=== PATIENT | male | born 1990 | race Caucasian/White ===

== ENCOUNTER 2019-03-16 22:45 | Emergency (ER) | payer MEDICAID, SELFPAY ==
--- NOTE | ~2019-03-16 | XR_ITS ---
XR hand RT min 3V 03/16/2019 23:00 INDICATION: Right hand pain after blunt trauma PROCEDURE: 3 views right hand COMPARISON: No prior studies for comparison. FINDINGS: Fracture, dislocation or subluxation is not identified. The soft tissues appear within norm al limits. No foreign bodies are identified. IMPRESSION: 1: NO ACUTE BONE OR JOINT ABNORMALITY IDENTIFIED. Reviewed, dictated and finalized at location A. MANAGER
[2019-03-16 22:49] VITALS: BP 142/88; PULSE 84; RESP 18; TEMP 36.3; O2SAT 95
--- NOTE | 2019-03-17 00:07 | ED.UPPEXIN ---
HPI - Extremity Injury (Upper) General Chief Complaint: Extremity Injury, Upper Stated Complaint: right hand pain Time Seen by Provider: 03/16/19 23:57 Source: patient and RN notes reviewed Mode of arrival: other Limitations: no limitations History of Present Illness HPI narrative: Pt is a 28 y/o male who presents to the ED with c/o right hand pain that began at 11:30 AM today after punching a wall. Pt notes that he took Ibuprofen for his sx. Pt believes he broke his hand. Pt denies numbness and tingling. MD complaint: injury to: right and hand Onset (ago): hour(s) Other injuries: none Place: home Relieving factors: none Context: other (punched a wall) Associated symptoms: denies other symptoms Related Data Home Medications Medication Instructions Recorded Confirmed acetaminophen 500 mg tablet 500 mg PO Q4H PRN 12/28/18 aspirin 81 mg tablet,delayed 81 mg PO DAILY 12/28/18 release ibuprofen 800 mg tablet 800 mg PO Q6H 12/28/18 Allergies Allergy/AdvReac Type Severity Reaction Status Date / Time adhesive Allergy Unknown skin rash Verified 11/28/18 08:54 Review of Systems Review of Systems: All systems reviewed & are unremarkable except as noted in HPI and below Musculoskeletal: Musculoskeletal: Reports other (right hand pain) Neurologic: Denies numbness and Denies tingling PMFSH Past Medical History Medical History (Updated 03/17/19 @ 02:04 by Mary Arroyo) Bradycardia Hand fracture History of cardiac monitoring Surgical History Surgical History (Updated 03/17/19 @ 02:04 by Mary Arroyo) History of cardiac catheterization Social History Social History (Updated 03/17/19 @ 02:04 by Mary Arroyo) Smoking packs per day: 0.5 Smoking cigarettes per day: 10.0 Years smoked: 22 Smoking pack-years: 11.00 Smoking status: Current every day smoker Tobacco type: cigarettes Second hand tobacco smoke exposure: Yes Alcohol intake: never Exam Const: General: healthy appearing and no acute distress Nutritional Appearance: well nourished HENMT: Mouth: Yes lip normal and Yes moist mucous membranes Eyes: Conjunctivae: conjunctivae normal Pupils: Equal, round and reactive pupils present Resp: Effort & Inspection: normal respiratory effort Cardio: Rate: regular rate Rhythm: regular rhythm Back/Spine/Pelvis: Back: other (Full ROM) Skin: General skin exam: normal color, dry skin and other (warm) Neuro: General: patient oriented x3 and other (alert) Speech: normal speech Extrem: General: full ROM Right upper extremity: Extremity exam: right hand vascular exam radial pulse present 2+ and normal capillary refill and other (pain over MCP joints on 4th and 5th finger) Psych: Mental Status: mental status grossly normal Affect: normal affect Course Vital Signs Vital signs: Vital Signs Temperature 36.3 C L 03/16/19 22:49 Pulse Rate 84 03/16/19 22:49 Respiratory Rate 18 03/16/19 22:49 Blood Pressure 142/88 H 03/16/19 22:49 Pulse Oximetry 95 03/16/19 22:49 Temperature 36.3 C L 03/16/19 22:49 Pulse Rate 66 03/17/19 00:22 Respiratory Rate 12 03/17/19 00:22 Blood Pressure 120/88 03/17/19 00:22 Pulse Oximetry 98 03/17/19 00:22 MDM - Extremity Injury (Upper) Imaging Data Attestation: I personally reviewed and interpreted this imaging study as follows: Radiologist's impression: ITS Impressions Hand X-Ray 03/16/19 23:04 IMPRESSION: 1: NO ACUTE BONE OR JOINT ABNORMALITY IDENTIFIED. Discharge Plan Discharge Clinical Impression: Contusion of hand, right Qualifiers: Encounter type: initial encounter Qualified Code(s): S60.221A - Contusion of right hand, initial encounter Patient Disposition: Home, Self-Care Condition: Stable Instructions: Contusion in Adults (ED) Prescriptions: No Action aspirin 81 mg tablet,delayed release (DR/EC) 81 mg PO DAILY RF: 0 ibuprofen 800 mg tablet 800 mg PO Q6
[2019-03-17 00:15] VITALS: BP 118/83; PULSE 51; RESP 12; O2SAT 97
[2019-03-17 00:22] VITALS: BP 120/88; PULSE 66; RESP 12; O2SAT 98
[2019-03-17] MEDS: KETOROLAC (*BKC) 60 MG/2 ML VIAL IM (00:22)
== END 2019-03-17 00:22 | disposition home or self-care (01) ==
PROVIDERS: Emergency Provider Emergency Medicine
DX: S60.221A Contusion of right hand, initial encounter (principal); F17.210 Nicotine dependence, cigarettes, uncomplicated; W22.09XA Striking against other stationary object, initial encounter
CPT/HCPCS: 73130; 96372; 99283; J1885

== ENCOUNTER 2019-08-23 21:23 | Emergency (ER) | payer OTHER, SELFPAY ==
--- NOTE | ~2019-08-23 | CT_ITS ---
EXAMINATION: CT BRAIN W/O DATE: 08/23/2019 22:13 INDICATION: Syncope. Headache. TECHNIQUE: Computed tomography (CT) of the head was performed without intravenous contrast. The dose- length product was 605.33 mGy-cm. The mA was adjusted according to patient size. Iterative reconstruc tion technique was employed. COMPARISON: CT dated 05/01/2016 FINDINGS: Normal brain parenchymal volume for age. Normal dietrich-white differentiation. No acute intrac ranial hemorrhage, infarction, mass or mass effect. There is a chronic lacunar infarction of the righ t caudate nucleus No ventriculomegaly or midline shift. Midline sagittal images demonstrate a normal corpus callosum, c raniovertebral junction and sella turcica. Basilar cisterns are patent. Paranasal sinuses and mastoids are pneumatized. No depressed skull fractures. IMPRESSION: 1. No acute intracranial abnormality. 2: Chronic lacunar infarction of the right caudate nucleus. Reviewed, dictated and finalized at location A.
[2019-08-23 21:26] VITALS: BP 125/88; PULSE 50; RESP 14; TEMP 36.6; O2SAT 100
--- NOTE | 2019-08-23 21:31 | ECG_ITS ---
Measurements Intervals [place] Rate: 46 P: 65 GA: 84 QRS: 99 QRSD: 100 T: 68 QT: 401 QTc: 354 Interpretive Statements SINUS BRADYCARDIA WITH SHORT GA INTERVAL RIGHT AXIS DEVIATION ANTEROSEPTAL INFARCT, AGE INDETERMINATE ABNORMAL ECG Electronically Signed On 08-24-2019 7:18:31 CDT by Cachorro Austin D.O.
[2019-08-23 21:44] LABS: Basophils Percent Auto 0.5 % (0.2-1.2); Eosinophils Absolute Auto 0.1 K/mm3 (0-0.3); Eosinophils Percent Auto 1.7 % (0-4.4); Hematocrit 41.9 % (42.0-52.0); Hemoglobin 14.2 g/dL (14.0-18.0); Immature Granulocyte Absolute 0.01 K/mm3 (0.00-0.031); Immature Granulocyte Percent A 0.2 % (0-0.5); Lymphocytes Absolute Auto 2.25 K/mm3 (0.9-3.2); Lymphocytes Percent Auto 38.7 % (18.3-44.2); Mean Corpuscular HGB Conc 33.9 g/dl (32-36); Mean Corpuscular Hemoglobin 28.6 pg (26-34); Mean Corpuscular Volume 84.5 fl (80-100); Mean Platelet Volume 10.2 fl (7.4-10.4); Monocytes Absolute Auto 0.5 K/mm3 (0.1-0.6); Monocytes Percent Auto 9.1 % (2.6-8.5); Neutrophils Absolute Auto 2.9 K/mm3 (1.3-6.7); Neutrophils Percent Auto 49.8 % (45.5-73.1); Platelet Count Result 257 k/mm3 (150-375); Red Blood Count 4.96 M/mm3 (4.6-6.20); Red Cell Distribution Width 12.6 % (11.5-14.5); White Blood Count 5.8 K/mm3 (4.5-10.0)
[2019-08-23 22:00] LABS: Blood Urea Nitrogen 15 mg/dL (9-20); Calcium 8.8 mg/dL (8.4-10.2); Carbon Dioxide 26 mmol/L (22-30); Chloride 104 mmol/L (98-107); Estimated CRCL calculation 101 ml/min; Estimated Glomerular Filt Rate > 60; Glucose 104 mg/dL (75-110); Potassium 3.9 mmol/L (3.4-5.0); Sodium 137 mmol/L (137-145)
--- NOTE | 2019-08-23 23:03 | PC.NURSE ---
Called patient's name multiple time in ED waiting room to update vitals and take patient back to room. Patient still not in waiting room at this time. ED charge nurse Rashmi notified.
--- NOTE | 2019-08-23 23:16 | PC.NURSE ---
Patient still not in ED waiting room at this time after name called multiple times.
--- NOTE | 2019-08-23 23:18 | PC.NURSE ---
Intake nurse Cat unsure if patient left without her noticing. Per ED charge nurse Rashmi, kavitha patient left prior to seeing provider.
== END 2019-08-24 00:32 | disposition left against medical advice (07) ==
PROVIDERS: Emergency Provider Emergency Medicine; PCP Radiology Diagnostic Radiology
DX: R55 Syncope and collapse (principal)
CPT/HCPCS: 36415; 70450; 80048; 85025; 93005; 99199

== ENCOUNTER 2019-09-17 00:50 | Emergency (ER) | payer OTHER, SELFPAY ==
--- NOTE | ~2019-09-17 | CT_ITS ---
EXAMINATION: CT brain wo con DATE: 09/17/2019 03:02 INDICATION: Posterior headache for one day. No injury. TECHNIQUE: Computed tomography (CT) of the head was performed without intravenous contrast. The mA wa s adjusted according to patient size. Iterative reconstruction technique was employed. Exam dose: 60 5.33 mGy-cm total exam DLP. COMPARISON: 08/23/2019 CT brain FINDINGS: Small chronic lacunar infarct of the right caudate nucleus is again noted. No intracranial mass lesion or hemorrhage, midline shift or mass effect is evident. Normal ventricula r size. No subdural or epidural hematoma. No fracture or bone destruction of the cranial vault. There is patchy opacification left ethmoid air cells. IMPRESSION: Small chronic lacunar infarct right caudate nucleus; no acute intracranial finding Reviewed, dictated and finalized at Location A. Reviewed, dictated and finalized at location A. IMPRESSION: Small chronic lacunar infarct right caudate nucleus; no acute intr acranial finding
[2019-09-17 00:58] VITALS: BP 133/89; PULSE 60; RESP 18; TEMP 36.6; O2SAT 100
[2019-09-17] MEDS: SODIUM CHLORIDE 0.9% IV 1,000 ML 999 ML IV CONT ×2 (01:22→03:04)
[2019-09-17] MEDS: diphenhydrAMINE HCl INJ 50 MG/ML VIAL 25 MG IV PUSH (01:23)
--- NOTE | 2019-09-17 01:27 | ED.GENADULT ---
HPI - General Adult General Chief complaint: Headache Stated complaint: headache Time Seen by Provider: 09/17/19 01:02 Source: RN notes reviewed History of Present Illness HPI narrative: Patient presents emergency department from home for headache. Patient states that the pain began upon awaking this morning. The pain is located in the right posterior head and does not radiate. States he is tender if you touch at the base of the neck on the right. Denies any fevers or chills vision changes numbness or tingling in the extremities rhinorrhea sore throat or any other symptoms. States he took Tylenol and ibuprofen at home and last took ibuprofen 4 hours ago. Denies any other symptoms at this time denies any known trauma or injury Related Data Home Medications Medication Instructions Recorded Confirmed acetaminophen 500 mg tablet 500 mg PO Q4H PRN 12/28/18 09/14/19 aspirin 81 mg tablet,delayed 81 mg PO DAILY 12/28/18 09/14/19 release Allergies Allergy/AdvReac Type Severity Reaction Status Date / Time adhesive Allergy Unknown skin rash Verified 09/17/19 01:06 Review of Systems Review of Systems: Narrative: Gen.: Denies fevers or chills Eyes: Denies eye pain or visual change ENT: Denies congestion Respiratory: Denies shortness of breath or cough CV: Denies chest pain or palpitations GI: Denies abdominal pain nausea, emesis or diarrhea denies burning, urgency, frequency or hematuria Musculoskeletal: Denies back pain or muscle pain Neuro: See HPI Skin: Denies rash Except as documented, all other systems reviewed and negative [facility] Past Medical History Medical History Bradycardia Hand fracture History of cardiac monitoring Surgical History Surgical History (Updated 03/17/19 @ 02:04 by Mary Arroyo) History of cardiac catheterization Social History Social History Smoking packs per day: 0.5 Smoking cigarettes per day: 10.0 Years smoked: 22 Smoking pack-years: 11.00 Smoking status: Current every day smoker Tobacco type: cigarettes Second hand tobacco smoke exposure: Yes Alcohol intake: never Gender identity (if verbalized by the patient): Male Exam Narrative: Exam Narrative: APPEARANCE: No acute distress, nontoxic, resting in bed EYES: EOMI, Darron HEENT: Normocephalic, atraumatic, TMs clear bilaterally nares patent, no erythema exudate posterior pharynx Neck: No midline tenderness palpation tender to palpation in the right paravertebral muscles C2 and 3 full range of motion of the neck without pain RESPIRATORY: No respiratory distress Clear to auscultation bilaterally with no rhonchi wheezing or rales. CARDIOVASCULAR: Regular rate and rhythm without murmurs rubs or gallops. ABDOMINAL: Soft, nontender, nondistended, no rebound or guarding MUSCULOSKELETAl: Moves all extremities. No clubbing, cyanosis or edema. NEURO: Awake and alert x 4. Following commands, speech normal, no focal deficits SKIN:: Warm, dry. No rashes lesions or abrasions PSYCHIATRIC: Normal affect/mood, Course Course Emergency Course: Patient states pain is improved at this time Discussed with patient results of workup and diagnosis. Discussed need for follow-up with primary care, proper use of medication, and reasons to return to the emergency department. Patient understands and agrees to current treatment plan Vital Signs Vital signs: Vital Signs Temperature 97.8 F 09/17/19 00:58 Pulse Rate 60 09/17/19 00:58 Respiratory Rate 18 09/17/19 00:58 Blood Pressure 133/89 09/17/19 00:58 Pulse Oximetry 100 09/17/19 00:58 Temperature 97.8 F 09/17/19 00:58 Pulse Rate 41 L 09/17/19 02:55 Respiratory Rate 16 09/17/19 02:55 Blood Pressure 105/69 09/17/19 02:55 Pulse Oximetry 99 09/17/19 02:55 Medical Decision Making [facility] Narrative Medical decision making narrative: Patient's h
[2019-09-17 02:55] VITALS: BP 105/69; PULSE 41; RESP 16; O2SAT 99
--- NOTE | 2019-09-17 02:56 | PC.NURSE ---
Patient being taken to CT.
[2019-09-17] MEDS: MORPHINE SULFATE 2 MG/ML INJ IV PUSH (03:04)
[2019-09-17 04:33] VITALS: BP 111/76; PULSE 39; RESP 16; TEMP 36.7; O2SAT 100
== END 2019-09-17 04:35 | disposition home or self-care (01) ==
PROVIDERS: Emergency Provider Emergency Medicine; PCP Radiology Diagnostic Radiology
DX: R51 Headache (principal); F17.210 Nicotine dependence, cigarettes, uncomplicated
CPT/HCPCS: 70450; 96361; 96374; 96375; 99284; J0131; J1200; J2270; J7030

== ENCOUNTER 2019-10-10 12:02 | Emergency (ER) | payer OTHER, SELFPAY ==
--- NOTE | ~2019-10-10 | XR_ITS ---
EXAMINATION: XR chest 2V DATE: 10/10/2019 13:09 INDICATION: Left chest pain. TECHNIQUE: Frontal and lateral views of the chest were obtained. COMPARISON: Chest 2 views 05/01/2016 FINDINGS: The chest demonstrates clear lungs without pneumonia, pleural effusion, or pneumothorax. Th e heart size is normal. IMPRESSION: 1. No acute cardiopulmonary disease. Reviewed, dictated and finalized at location B.
[2019-10-10 12:27] VITALS: BP 148/88; PULSE 54; RESP 18; TEMP 36.9; O2SAT 100
--- NOTE | 2019-10-10 12:44 | ECG_ITS ---
Measurements Intervals [place] Rate: 61 P: 57 MO: 134 QRS: 90 QRSD: 90 T: 66 QT: 396 QTc: 400 Interpretive Statements SINUS RHYTHM INCOMPLETE RIGHT BUNDLE BRANCH BLOCK DELAYED PRECORDIAL R/S TRANSITION BASELINE WANDER- V1 BORDERLINE ECG Electronically Signed On 10-10-2019 16:02:44 CDT by Cachorro Austin D.O.
--- NOTE | 2019-10-10 12:49 | ED.CHESTPAIN ---
HPI - Chest Pain General Chief Complaint: Chest Pain Stated Complaint: Chest Pain Time Seen by Provider: 10/10/19 12:29 Source: patient Limitations: no limitations History of Present Illness HPI narrative: 28-year-old male presents to emergency department for left-sided, nonradiating chest pain that started 1 hour prior to arrival. Patient states he has had this pain before in the past, and took an 81 mg aspirin soon after it started. Nothing makes the pain worse or better. Chest pain is not worse with exertion. No shortness of breath. No abdominal pain. No nausea or vomiting. Patient has had a heart catheter in the past back in 2016, which was unremarkable. Related Data Home Medications Medication Instructions Recorded Confirmed acetaminophen 500 mg tablet 500 mg PO Q4H PRN 12/28/18 09/14/19 aspirin 81 mg tablet,delayed 81 mg PO DAILY 12/28/18 09/14/19 release Allergies Allergy/AdvReac Type Severity Reaction Status Date / Time adhesive Allergy Unknown skin rash Verified 10/10/19 12:33 Review of Systems Review of Systems: Narrative: CONSTITUTIONAL: Denies fever, chills, or sweats. EYES: Denies visual changes, redness, or discharge. ENT: Denies rhinorrhea, congestion, sore throat, or otalgia. CARDIOVASCULAR: Reports chest pain, denies palpitations RESPIRATORY: Denies cough or dyspnea. GASTROINTESTINAL: Denies abdominal pain, nausea, vomiting, or diarrhea. GENITOURINARY: Denies dysuria or hematuria. SKIN: Denies rash or itching. MUSCULOSKELETAL: Denies back pain, joint pain, or myalgia. NEUROLOGIC: Denies headache, numbness, dizziness, or weakness. PSYCHIATRIC: Denies anxiety or depression. [facility] Past Medical History Medical History Bradycardia Hand fracture History of cardiac monitoring Surgical History Surgical History History of cardiac catheterization Social History Social History Smoking packs per day: 0.5 Smoking cigarettes per day: 10.0 Years smoked: 22 Smoking pack-years: 11.00 Smoking status: Current every day smoker Tobacco type: cigarettes Second hand tobacco smoke exposure: Yes Alcohol intake: never Gender identity (if verbalized by the patient): Male Exam Narrative: Exam Narrative: GENERAL: Well-nourished, mild distress. HEAD: Normocephalic, atraumatic. EYES: PERRLA and EOMI. ENT: Nares clear, no rhinorrhea or epistaxis. Mucous membranes moist. NECK: Supple. CHEST: Clear to auscultation. No respiratory distress. HEART: Sinus bradycardia, no murmur heard. Normal peripheral pulses. ABDOMEN: Soft, nontender, nondistended, normal active bowel sounds. EXTREMITIES: Normal range of motion. No edema. SKIN: Warm, dry, no rash. NEURO: No focal deficits. Alert and oriented x3. PSYCH: Normal mood and affect. Course Course Emergency Course: 14:05 -reevaluated patient, no new complaints. Patient has an appointment with medical records clerk tomorrow. Counseled patient to keep this appointment, and return to emergency department at any time if symptoms persist, worsen, or other concerns. Vital Signs Vital signs: Vital Signs Temperature 36.9 C 10/10/19 12:27 Pulse Rate 54 L 10/10/19 12:27 Respiratory Rate 18 10/10/19 12:27 Blood Pressure 148/88 H 10/10/19 12:27 Pulse Oximetry 100 10/10/19 12:27 Temperature 36.9 C 10/10/19 12:27 Pulse Rate 40 L 10/10/19 14:15 Respiratory Rate 13 10/10/19 14:15 Blood Pressure 105/68 10/10/19 14:15 Pulse Oximetry 99 10/10/19 14:15 MDM - Chest Pain Medical Records Data Attestation: I reviewed the patient's medical records. Lab Data Attestation: I reviewed the patient's lab results. Result diagrams: 10/10/19 13:04 10/10/19 13:04 Labs: Lab Results 10/10/19 10/10/19 Range/Units 13:04 13:04 WBC 4.7 (4.5-10.
[2019-10-10 13:11] LABS: Basophils Percent Auto 0.4 % (0.2-1.2); Eosinophils Absolute Auto 0.1 K/mm3 (0-0.3); Hematocrit 39.8 % (42.0-52.0); Hemoglobin 13.7 g/dL (14.0-18.0); Immature Granulocyte Absolute 0.01 K/mm3 (0.00-0.031); Immature Granulocyte Percent A 0.2 % (0-0.5); Lymphocytes Absolute Auto 1.71 K/mm3 (0.9-3.2); Lymphocytes Percent Auto 36.6 % (18.3-44.2); Mean Corpuscular HGB Conc 34.4 g/dl (32-36); Mean Corpuscular Hemoglobin 28.8 pg (26-34); Mean Corpuscular Volume 83.8 fl (80-100); Mean Platelet Volume 9.7 fl (7.4-10.4); Monocytes Absolute Auto 0.6 K/mm3 (0.1-0.6); Neutrophils Absolute Auto 2.2 K/mm3 (1.3-6.7); Neutrophils Percent Auto 47.8 % (45.5-73.1); Platelet Count Result 226 k/mm3 (150-375); Red Blood Count 4.75 M/mm3 (4.6-6.20); Red Cell Distribution Width 12.9 % (11.5-14.5); White Blood Count 4.7 K/mm3 (4.5-10.0)
[2019-10-10 13:26] LABS: Anion Gap 5 mmol/L (8-16); Blood Urea Nitrogen 14 mg/dL (9-20); Calcium 8.5 mg/dL (8.4-10.2); Carbon Dioxide 27 mmol/L (22-30); Chloride 105 mmol/L (98-107); Estimated CRCL calculation 106 ml/min; Estimated Glomerular Filt Rate > 60; Glucose 85 mg/dL (75-110); Potassium 4.4 mmol/L (3.4-5.0); Sodium 137 mmol/L (137-145)
[2019-10-10 13:27] VITALS: BP 112/74; PULSE 49; RESP 15; O2SAT 99
[2019-10-10 13:37] LABS: Troponin I < 0.012 ng/mL (0.000-0.034)
[2019-10-10 14:15] VITALS: BP 105/68; PULSE 39; PULSE 40; RESP 13; O2SAT 99
== END 2019-10-10 14:25 | disposition home or self-care (01) ==
PROVIDERS: Emergency Provider Emergency Medicine; PCP Radiology Diagnostic Radiology
DX: R00.1 Bradycardia, unspecified (principal); R07.9 Chest pain, unspecified
CPT/HCPCS: 36415; 71046; 80048; 84484; 85025; 93005; 96374; 99284; J3010

== ENCOUNTER 2019-10-16 12:33 | Outpatient (CLI) | payer OTHER, SELFPAY ==
--- NOTE | ~2019-10-16 | MR_ITS ---
EXAMINATION: MR brain/brain stem wo con DATE: 10/16/2019 15:17 INDICATION: Syncope. TECHNIQUE: Magnetic resonance imaging (MRI) of the brain and brainstem was performed without intraven ous contrast. Sequences included sagittal and axial T1-weighted FSE, axial diffusion-weighted FS EPI, axial T2*-weighted GRE, axial T2-weighted FLAIR Propeller, and axial T2-weighted Propeller. Apparent diffusion coefficient (ADC) maps were created. COMPARISON: Head CT 09/17/2019 FINDINGS: There is no intracranial hemorrhage, acute infarction, or abnormal intracranial mass lesion . There is an old lacunar infarct in the right caudate nucleus. The ventricles are normal in size. Th e paranasal sinuses are clear. The orbits are normal. The mastoid air cells are normal. IMPRESSION: 1. Old lacunar infarct in the right caudate nucleus. Reviewed, dictated and finalized at location A.
--- NOTE | 2019-10-16 13:30 | NEURO_ITS ---
TEST: ELECTROENCEPHALOGRAM DIAGNOSIS: ANTONI LUNA PATIENT NUMBER: [id number] EEG NUMBER: [id number] RECORDING DATE: 10/16/19 CONDITION OF RECORDING: Awake, drowsy and sleep EEG DESCRIPTION: Basic resting occipital frequency consists of minimal amount of fairly well organized low voltage 8-10hz alpha mixed with low voltage 15-18hz beta. During drowsiness low voltage beta activity is seen diffusely mixed with waxing and waning posterior alpha rhythms. Bilateral symmetrical sleep activity is seen during sleep. Photic stimulation produced normal drive. Nonparoxysmal. Nonfocal. Nonlateralizing. IMPRESSION: No significant abnormalities noted. [facility]
--- NOTE | 2019-10-17 09:59 | WPDNEUROLOGY ---
Neurology EEG Report General Information Date of Study: 10/16/19 Test: eeg do not save Diagnosis: blackouts Date of Recordin10/16/2019 EEG Number: [id number] Clinical History: patient reported blackouts randomly sometimes with no warning lasting 30 to 40 seconds
== END 2019-10-16 12:34 | disposition home or self-care (01) ==
PROVIDERS: Visit Provider Psychiatry & Neurology Neurology
DX: R55 Syncope and collapse (principal)
CPT/HCPCS: 70551; 95816

== ENCOUNTER 2019-12-07 04:08 | Emergency (ER) | payer OTHER, SELFPAY ==
[2019-12-07 04:10] VITALS: BP 133/88; PULSE 51; RESP 16; TEMP 36.6; O2SAT 100
--- NOTE | 2019-12-07 04:22 | ED.DENTAL ---
HPI - Dental/Oral General Chief complaint: Dental/Oral Stated complaint: sore throat Time Seen by Provider: 12/07/19 04:16 History of Present Illness HPI Narrative: He awoke from sleep early this morning wit a sore throat. He then felt like he was unable to swallow. Then he started to feel short of breath. He denies recent illness or seasonal allergies. No fever, chills. Related Data Home Medications Medication Instructions Recorded Confirmed acetaminophen 500 mg tablet 500 mg PO Q4H PRN 12/28/18 09/14/19 aspirin 81 mg tablet,delayed 81 mg PO DAILY 12/28/18 09/14/19 release Allergies Allergy/AdvReac Type Severity Reaction Status Date / Time adhesive Allergy Unknown skin rash Verified 10/10/19 12:33 Review of Systems Review of Systems: All systems reviewed & are unremarkable except as noted in HPI and below Constitutional: Constitutional: Denies fever(s) and Denies weakness ENT: Reports dysphagia, Denies dizziness and Reports sore throat Cardiovascular: Cardiovascular: Denies chest pain Respiratory: Respiratory: Reports dyspnea Gastrointestinal: Gastrointestinal: Denies abdominal pain, Denies nausea and Denies vomiting Neurologic: Denies confusion, Denies numbness and Denies weakness [facility] Past Medical History Medical History (Updated 12/08/19 @ 00:00 by Background Daemon) Bradycardia Hand fracture History of cardiac monitoring Surgical History Surgical History History of cardiac catheterization Social History Social History Smoking packs per day: 0.5 Smoking cigarettes per day: 10.0 Years smoked: 22 Smoking pack-years: 11.00 Smoking status: Current every day smoker Tobacco type: cigarettes Second hand tobacco smoke exposure: Yes Alcohol intake: never Gender identity (if verbalized by the patient): Male Exam Const: General: no acute distress and alert Nutritional Appearance: thin Orientation/consciousness: patient oriented x3 HENMT: Mouth: Yes dry mucous membranes and Yes Abnormal oral and palatal mucosa present Other: mild pharyngeal erythema. No exudates. tonsils normal. Uvula midline Neck: Neck: normal visual inspection and no lymphadenopathy Other: No stridor Resp: Effort & Inspection: normal respiratory effort Auscultation: clear to auscultation bilaterally Cardio: Rate: regular rate Rhythm: regular rhythm Course Vital Signs Vital signs: Vital Signs Temperature 36.6 C 12/07/19 04:10 Pulse Rate 51 L 12/07/19 04:10 Respiratory Rate 16 12/07/19 04:10 Blood Pressure 133/88 12/07/19 04:10 Pulse Oximetry 100 12/07/19 04:10 Temperature 36.6 C 12/07/19 04:10 Pulse Rate 51 L 12/07/19 04:10 Respiratory Rate 16 12/07/19 04:10 Blood Pressure 133/88 12/07/19 04:10 Pulse Oximetry 100 12/07/19 04:10 MDM - Dental/Oral Lab Data Labs: Strep Screen Presumptive Negative *(Reference Range: Negative)* Discharge Plan Discharge Clinical Impression: Post-nasal drainage Patient Disposition: Home, Self-Care Condition: Stable Instructions: Postnasal Drip (DC) Prescriptions: New Zyrtec 10 mg capsule 10 mg PO DAILY Qty: 30 RF: 0 No Action (DME) Futuro Anti-Embolism Stockings Misc See Rx Instructions .ROUTE .MEDSUPPLY Qty: 2 RF: 0 ibuprofen [IBU] 600 mg tablet 600 mg PO Q6H PRN (Reason: pain) Qty: 20 RF: 0 aspirin 81 mg tablet,delayed release (DR/EC) 81 mg PO DAILY RF: 0 acetaminophen [Tylenol Extra Strength] 500 mg tablet 500 mg PO Q4H PRN (Reason: Pain) RF: 0 Follow-up/Referrals: UNKNOWN,DOCTOR [Primary Care Provider] - Stand Alone Forms: Work/School Release IP
[2019-12-07] MEDS: diphenhydrAMINE HCl CAP 25 MG CAPSULE PO (04:30)
[2019-12-07] MEDS: KETOROLAC (*BKC) 60 MG/2 ML VIAL IM (04:30)
== END 2019-12-07 05:31 | disposition home or self-care (01) ==
PROVIDERS: Emergency Provider Emergency Medicine
DX: R09.82 Postnasal drip (principal); F17.210 Nicotine dependence, cigarettes, uncomplicated
CPT/HCPCS: 87081; 87880; 96372; 99284; A9270; J1100; J1885

== ENCOUNTER 2019-12-30 11:42 | Emergency (ER) | payer OTHER, SELFPAY ==
[2019-12-30 12:05] VITALS: BP 149/95; PULSE 54; RESP 18; TEMP 36.8; O2SAT 100
--- NOTE | 2019-12-30 12:10 | ED.URI ---
HPI - URI/Sore Throat General Chief Complaint: Neck Pain/Injury Stated Complaint: Bump on neck/neck pain Time Seen by Provider: 12/30/19 12:10 History of Present Illness HPI Narrative: Pain in the posterior neck for the past 4 days. Was present when he woke up that morning. Feels stiff and limits his head movmenet. Thought he slept wrong. Became concerned today when he noted a bump on the back of his neck. He has not taken anything for the pain. No weakness, numbness, fever, chills, nausea, wounds. Related Data Home Medications Medication Instructions Recorded Confirmed No Home Medications 12/30/19 12/30/19 Allergies Allergy/AdvReac Type Severity Reaction Status Date / Time adhesive Allergy Unknown skin rash Verified 12/30/19 12:07 Review of Systems Review of Systems: All systems reviewed & are unremarkable except as noted in HPI and below Constitutional: Constitutional: Denies chills, Denies fever(s) and Denies weakness ENT: Denies sore throat Cardiovascular: Cardiovascular: Denies chest pain Respiratory: Respiratory: Denies dyspnea Gastrointestinal: Gastrointestinal: Denies abdominal pain and Denies nausea Musculoskeletal: Musculoskeletal: Denies back pain Neurologic: Denies numbness and Denies weakness [facility] Past Medical History Medical History (Updated 12/31/19 @ 00:00 by Mitchell Mcghee) Bradycardia Hand fracture History of cardiac monitoring Surgical History Surgical History History of cardiac catheterization Social History Social History Smoking packs per day: 0.5 Smoking cigarettes per day: 10.0 Years smoked: 22 Smoking pack-years: 11.00 Smoking status: Current every day smoker Tobacco type: cigarettes Second hand tobacco smoke exposure: Yes Alcohol intake: never Gender identity (if verbalized by the patient): Male Exam Const: General: healthy appearing, no acute distress and alert Orientation/consciousness: patient oriented x3 HENMT: Head: normal to inspection Neck: Neck: no lymphadenopathy Resp: Effort & Inspection: normal respiratory effort Auscultation: clear to auscultation bilaterally Cardio: Rate: regular rate Rhythm: regular rhythm Back/Spine/Pelvis: Other: Paraspinal muscle spasm bilaterally at C7 with point tenderness worse on the left. increased muscle tone in right tarapezius. Skin: General skin exam: normal color Rashes: no rashes Wounds: no wounds Neuro: General: patient oriented x3, moves all extremities, no focal motor deficits and CN's II-XI intact bilaterally Speech: normal speech Gait exam (Neuro): Normal gait present Extrem: General: normal to inspection Psych: Affect: Anxious affect present Course Vital Signs Vital signs: Vital Signs Temperature 36.8 C 12/30/19 12:05 Pulse Rate 54 L 12/30/19 12:05 Respiratory Rate 18 12/30/19 12:05 Blood Pressure 149/95 H 12/30/19 12:05 Pulse Oximetry 100 12/30/19 12:05 Temperature 36.8 C 12/30/19 12:05 Pulse Rate 54 L 12/30/19 12:05 Respiratory Rate 18 12/30/19 12:05 Blood Pressure 149/95 H 12/30/19 12:05 Pulse Oximetry 100 12/30/19 12:05 Procedures Other Procedure Procedure 1: Other Procedure: Trigger point injection Trigger point injections performed on paraspinal muscles at C7 2 muscles injected The area was cleaned with chlorhexadine 2 ml 1% lidocaine and 1 ml kenalog 40 used for injection No immediate complications MDM - URI/Sore Throat MDM Narrative Medical decision making narrative: He has obvious muscle spasm with point tenderness. No sign of infection of neurological dysfunction. Trigger point injection performed. Medical Records Attestation: I reviewed the patient's medical records. Lab Data Attestation: I reviewed the patient's lab results. Discharge Plan Discharge Clinical Impression: Trigger point
--- NOTE | 2019-12-30 12:20 | PC.NURSE ---
patient brought back to ED room 19 with c/o neck pain for the last few days. see triage notes. alert. oriented. denies known injury. sitting on stretcher in room. took ibuprofen this am when he woke up but no relief. assessment documented. updated on current wait time and treatment plan. waiting for further orders from provider.
[2019-12-30] MEDS: LIDOCAINE HCL 1% LOCAL INJ 20 ML VIAL INFILTRATE (12:47)
[2019-12-30] MEDS: diazePAM INJ (*CRX) 10 MG/2 ML SYRINGE 5 MG IM (12:59)
--- NOTE | 2019-12-30 13:01 | PC.NURSE ---
provider in room now for procedure. diazepam given.
[2019-12-30] MEDS: TRIAMCINOLONE ACET INJ 40 MG/ML VIAL IM (13:17)
== END 2019-12-30 13:30 | disposition home or self-care (01) ==
PROVIDERS: Emergency Provider Emergency Medicine
DX: M62.838 Other muscle spasm (principal); F17.210 Nicotine dependence, cigarettes, uncomplicated
CPT/HCPCS: 20552; 96372; 99284; J3301; J3360

== ENCOUNTER 2020-06-26 13:34 | Outpatient (CLI) | payer OTHER, SELFPAY ==
--- NOTE | 2020-06-26 13:49 | ECHO_ITS ---
Patient Info Name: Tay Hutton Age: 29 years : 1990 Gender: Male Ht: 74 in Wt: 150 lbs BSA: 1.87 m2 HR: 49 bpm BP: 133 / 76 mmHg Technical Quality: Good Exam Date: 06/26/2020 2:01 PM Exam Location: 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 Summary 1. Complete two-dimensional, color flow and Doppler transthoracic echocardiogram is performed. 2. Left ventricular chamber dimension is normal. 3. Left ventricular systolic function is normal, estimated at 55-60%. 4. The left ventricular diastolic function is normal. 5. E/e' 4 is not elevated. 6. There is trace mitral valve regurgitation. 7. No pulmonary hypertension, estimated pulmonary arterial systolic pressure is 31 mmHg. Left Ventricle E/e' 4 is not elevated. Left ventricular chamber dimension is normal. Left ventricular systolic function is normal, estimated at 55-60%. The left ventricular diastolic function is normal. Right Ventricle Right ventricular chamber dimension is normal. Right ventricular systolic function is normal. Left Atria Left atrial chamber dimension is normal. Right Atria Right atrial chamber dimension is normal. Aortic Valve The aortic valve is trileaflet. There is no aortic valve stenosis. There is no aortic valve regurgitation. Pulmonic Valve There is no pulmonic regurgitation. Mitral Valve There is no mitral valve stenosis. There is trace mitral valve regurgitation. Tricuspid Valve There is no tricuspid valve regurgitation. No pulmonary hypertension, estimated pulmonary arterial systolic pressure is 31 mmHg. Pericardium/Pleural There is no pericardial effusion. Inferior Vena Cava Normal inferior vena cava with >50% collapse upon inspiration consistent with normal right atrial pressure, 5 mmHg. Aorta The aortic root size at the sinus of Valsalva is normal. Left Ventricular Outflow Tract Name Value Normal LVOT 2D LVOT Diameter 2.1 cm LVOT Doppler LVOT Peak Gradient 4 mmHg LVOT Mean Gradient 3 mmHg LVOT VTI 20 cm LVOT VTI/AV VTI Ratio 0.9 LVOT Stroke Volume 69 ml LVOT CO 16.0 l/min LVOT CI 8.5 l/min/m2 Pulmonic Valve Name Value Normal PV Doppler PV Peak Gradient 2 mmHg Mitral Valve
== END 2020-06-26 13:35 | disposition home or self-care (01) ==
LOC: ANHCARD 13:37
PROVIDERS: PCP Internal Medicine; Visit Provider Internal Medicine Cardiovascular Disease
DX: I05.8 Other rheumatic mitral valve diseases (principal)
CPT/HCPCS: 93306

== ENCOUNTER 2020-07-21 10:18 | Outpatient (CLI) | payer OTHER, SELFPAY ==
--- NOTE | 2020-07-22 09:36 | WPDNEUROLOGY ---
Neurology EEG Report General Information Date of Study: 07/21/20 TEST eeg DIAGNOSIS syncope CONDITION OF RECORDING Awake drowsy and sleep EEG NUMBER [id number] CLINICAL HISTORY patient reported he has been losing consciousness several times a week for over a year. Gets a little dizzy beforehand and fine afterwards. EEG DESCRIPTION Basic resting occipital frequency consists of 15 to 18 hertz per 2nd low voltage beta activity. During drowsiness low voltage beta activity seen admixed with medium voltage intermittent theta activity. Bilateral symmetrical sleep activity seen during sleep. Multiple muscle artifacts are noted throughout the tracing. Hyperventilation not done. Photic stimulation produced poor drive. Non paroxysmal. Nonfocal. Nonlateralizing. IMPRESSION No significant abnormalities noted in this tracing. Clinical correlation recommended.
== END 2020-07-21 10:19 | disposition home or self-care (01) ==
PROVIDERS: PCP Internal Medicine; Visit Provider Psychiatry & Neurology Neurology
DX: R55 Syncope and collapse (principal)
CPT/HCPCS: 95816

== ENCOUNTER 2020-07-31 12:04 | Emergency (ER) | payer OTHER, SELFPAY ==
--- NOTE | ~2020-07-31 | XR_ITS ---
EXAMINATION: XR hand RT min 3V EXAM DATE: 07/31/2020 12:27 INDICATION: Initial encounter following injury, with pain of the right hand. TECHNIQUE: Right hand frontal, lateral and oblique projections obtained and reviewed. Comparison is m arthur to prior examination from 03/16/2019. FINDINGS: Right metacarpal bones are unremarkable. There are no acute fractures or dislocations iden tified. There is no subcutaneous gas. The soft tissue is unremarkable. There are no radiopaque fo reign bodies. IMPRESSION: 1. XR hand RT min 3V exam without acute osseous findings. Reviewed, dictated and finalized at location B.
[2020-07-31 12:09] VITALS: BP 128/99; PULSE 58; RESP 16; TEMP 36.4; O2SAT 100
--- NOTE | 2020-07-31 13:04 | ED.GENADULT ---
HPI - General Adult General Chief complaint: Extremity Injury, Upper Stated complaint: hand injury Time Seen by Provider: 07/31/20 12:12 Source: patient, family and RN notes reviewed Mode of arrival: ambulatory Limitations: no limitations History of Present Illness HPI narrative: Patient a 29-year-old male who presents to emergency department for evaluation of bright hand pain over the dorsal surface ever having the hand caught between concrete and other object yesterday patient notes aching pain worse with activity and movement denies other injuries or complaints has not been seen for this complaint Related Data Home Medications Medication Instructions Recorded Confirmed No Home Medications 12/30/19 07/10/20 Allergies Allergy/AdvReac Type Severity Reaction Status Date / Time adhesive Allergy Unknown skin rash Verified 07/31/20 12:13 Review of Systems Review of Systems: All systems reviewed & are unremarkable except as noted in HPI and below PMFSH Past Medical History Medical History (Updated 07/31/20 @ 13:07 by Olvin Reyes PA-C) Bradycardia Hand fracture History of cardiac monitoring Surgical History Surgical History History of cardiac catheterization Social History Social History Smoking packs per day: 0.5 Smoking cigarettes per day: 10.0 Years smoked: 22 Smoking pack-years: 11.00 Smoking status: Current every day smoker Tobacco type: cigarettes Second hand tobacco smoke exposure: Yes Alcohol intake: never Gender identity (if verbalized by the patient): Male Exam Narrative: Exam Narrative: GENERAL: Well-appearing, well-nourished, and in no acute distress. HEAD: Normocephalic, atraumatic. EYES: PERRLA and EOMI. ENT: Nares clear, no rhinorrhea or epistaxis. Mucous membranes moist. EXTREMITIES: Normal range of motion. No edema. Tenderness over the dorsum of the right hand few abrasions of the MCP joints of the third and fourth digits no other abnormalities or deformity noted wrist nontender SKIN: Warm, dry, no rash. NEURO: No focal deficits. Alert and oriented x3. Neurovascularly intact. Capillary refill less than 2 seconds PSYCH: Normal mood and affect. Course Course Emergency Course: Patient in the room no distress negative x-rays Vital Signs Vital signs: Vital Signs Temperature 97.5 F L 07/31/20 12:09 Pulse Rate 58 L 07/31/20 12:09 Respiratory Rate 16 07/31/20 12:09 Blood Pressure 128/99 H 07/31/20 12:09 Pulse Oximetry 100 07/31/20 12:09 Temperature 97.5 F L 07/31/20 12:09 Pulse Rate 58 L 07/31/20 12:09 Respiratory Rate 16 07/31/20 12:09 Blood Pressure 128/99 H 07/31/20 12:09 Pulse Oximetry 100 07/31/20 12:09 Medical Decision Making MDM Narrative Medical decision making narrative: Patients injury or pain is consistent with musculoskeletal etiology. No signs of neurological or vascular compromise on exam. Compartments and tisues are soft without signs of compartment syndrome. Pain is felt appropriate for further evaluation on an outpatient basis. Vital Signs Vital Signs: Vital Signs Temperature 97.5 F L 07/31/20 12:09 Pulse Rate 58 L 07/31/20 12:09 Respiratory Rate 16 07/31/20 12:09 Blood Pressure 128/99 H 07/31/20 12:09 Pulse Oximetry 100 07/31/20 12:09 Temperature 97.5 F L 07/31/20 12:09 Pulse Rate 58 L 07/31/20 12:09 Respiratory Rate 16 07/31/20 12:09 Blood Pressure 128/99 H 07/31/20 12:09 Pulse Oximetry 100 07/31/20 12:09 Imaging Data Radiologist's impression: ITS Impressions Hand X-Ray 07/31/20 12:28 IMPRESSION: 1. XR hand RT min 3V exam without acute osseous findings. Discharge Plan Discharge Clinical Impression: Hand pain, right Patient Disposition: Home, Self-Care Condition: Stable Instructions: Antibiotic Form, Hand Sprain (ED) Ad
== END 2020-07-31 13:15 | disposition home or self-care (01) ==
PROVIDERS: Emergency Provider Emergency Medicine; PCP Internal Medicine
DX: M79.641 Pain in right hand (principal); F17.210 Nicotine dependence, cigarettes, uncomplicated
CPT/HCPCS: 73130; 99283

== ENCOUNTER 2020-10-12 13:28 | Outpatient (CLI) | payer OTHER, SELFPAY ==
--- NOTE | ~2020-10-12 | MR_ITS ---
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 Syncope. TECHNIQUE: Magnetic resonance imaging (MRI) of the cervical spine was performed without intravenous c ontrast. Sequences included sagittal T2-weighted FSE, sagittal STIR FSE, sagittal T1-weighted FSE, ax ial MERGE, and axial T2-weighted FSE. COMPARISON: Brain MRI 10/16/2019 FINDINGS: There is 4 degrees levocurvature of cervical spine. There is kyphosis of cervical spine. Ve rtebral body heights and intervertebral disc heights are normal. The spinal cord signal intensity is normal. There is no Chiari malformation. The following disc levels are specifically discussed: C2-C3: The disc does not extend beyond the endplate margin. There is no uncovertebral joint osteoarth ritis. There is no facet joint osteoarthritis. There is no neural foraminal stenosis. There is no sandy tral canal stenosis. C3-C4: The disc does not extend beyond the endplate margin. There is no uncovertebral joint osteoarth ritis. There is no facet joint osteoarthritis. There is no neural foraminal stenosis. There is no sandy tral canal stenosis. C4-C5: The disc does not extend beyond the endplate margin. There is mild right uncovertebral joint o steoarthritis. There is no facet joint osteoarthritis. There is no neural foraminal stenosis. There i s no central canal stenosis. C5-C6: The disc does not extend beyond the endplate margin. There is mild bilateral uncovertebral deloris nt osteoarthritis. There is mild bilateral facet joint osteoarthritis. There is no neural foraminal s tenosis. There is no central canal stenosis. C6-C7: The disc does not extend beyond the endplate margin. There is mild bilateral uncovertebral deloris nt osteoarthritis. There is mild bilateral facet joint osteoarthritis. There is no neural foraminal s tenosis. There is no central canal stenosis. C7-T1: The disc does not extend beyond the endplate margin. There is no uncovertebral joint osteoarth ritis. There is mild bilateral facet joint osteoarthritis. There is no neural foraminal stenosis. The re is no central canal stenosis. IMPRESSION: 1. Mild cervical spondylosis. 2. No Chiari malformation. Reviewed, dictated and finalized at location A.
== END 2020-10-12 13:29 | disposition home or self-care (01) ==
LOC: ANHIMG 13:29
PROVIDERS: PCP Internal Medicine; Visit Provider Psychiatry & Neurology Neurology
DX: Q07.00 Arnold-Chiari syndrome without spina bifida or hydrocephalus (principal); M47.812 Spondylosis without myelopathy or radiculopathy, cervical region
CPT/HCPCS: 72141

== ENCOUNTER 2020-11-11 20:14 | Emergency (ER) | payer OTHER, SELFPAY ==
--- NOTE | ~2020-11-11 | CT_ITS ---
EXAMINATION: CT brain wo con DATE: 11/12/2020 00:37 INDICATION: Syncopal episode. Head injury. TECHNIQUE: Computed tomography (CT) of the head was performed without intravenous contrast. Sagittal and coronal reconstructions were performed. The mA was adjusted according to patient size. Iterative reconstruction technique was employed. The dose-length product was 605.33 mGy-cm. COMPARISON: head CT dated 09/17/2019 and brain MR dated 10/16/2019 FINDINGS: No fracture. Small old lacunar infarct at the head of the right caudate nucleus. No acute intracrania l hemorrhage, acute infarction or abnormal extra axial fluid collection. Ventricles are normal and sy mmetric. No mass/mass effect. The orbits, paranasal sinuses and mastoid air cells are normal. IMPRESSION: 1. No fracture or acute intracranial process. 2. Small old lacunar infarct at the head of the right caudate nucleus. Reviewed, dictated and finalized at location A.
[2020-11-11 21:00] VITALS: BP 138/66; PULSE 42; RESP 18; TEMP 36.9; O2SAT 100
--- NOTE | 2020-11-11 21:00 | ECG_ITS ---
Measurements Intervals [place] Rate: 45 P: 38 NV: 142 QRS: 89 QRSD: 92 T: 61 QT: 413 QTc: 359 Interpretive Statements SINUS BRADYCARDIA WITH SINUS ARRHYTHMIA DELAYED PRECORDIAL R/S TRANSITION BASELINE ARTIFACT- I, II, III, AVR ABNORMAL ECG Electronically Signed On 11-12-2020 6:57:22 CDT by Cachorro Austin D.O.
[2020-11-11 21:20] LABS: Basophils Percent Auto 0.4 % (0.2-1.2); Eosinophils Absolute Auto 0.1 K/mm3 (0-0.3); Eosinophils Percent Auto 2.4 % (0-4.4); Hematocrit 41.3 % (42.0-52.0); Hemoglobin 13.8 g/dL (14.0-18.0); Immature Granulocyte Absolute 0.01 K/mm3 (0.00-0.031); Immature Granulocyte Percent A 0.2 % (0-0.5); Lymphocytes Absolute Auto 1.97 K/mm3 (0.9-3.2); Mean Corpuscular HGB Conc 33.4 g/dl (32-36); Mean Corpuscular Hemoglobin 29.1 pg (26-34); Mean Corpuscular Volume 86.9 fl (80-100); Mean Platelet Volume 9.5 fl (7.4-10.4); Monocytes Absolute Auto 0.4 K/mm3 (0.1-0.6); Monocytes Percent Auto 8.1 % (2.6-8.5); Neutrophils Absolute Auto 2.8 K/mm3 (1.3-6.7); Neutrophils Percent Auto 51.9 % (45.5-73.1); Platelet Count Result 223 k/mm3 (150-375); Red Blood Count 4.75 M/mm3 (4.6-6.20); White Blood Count 5.3 K/mm3 (4.5-10.0)
[2020-11-11 21:32] LABS: Anion Gap 3 mmol/L (8-16); Blood Urea Nitrogen 16 mg/dL (9-20); Calcium 8.6 mg/dL (8.4-10.2); Carbon Dioxide 27 mmol/L (22-30); Chloride 112 mmol/L (98-107); Estimated CRCL calculation 100 ml/min; Estimated Glomerular Filt Rate > 60; Glucose 95 mg/dL (65-110); Potassium 4.5 mmol/L (3.4-5.0); Sodium 142 mmol/L (137-145)
[2020-11-12] VITALS (9 sets, daily range): BP systolic 113–139; BP diastolic 85–98; PULSE 38–51; RESP 12–18; TEMP 36.9; O2SAT 98–100
--- NOTE | 2020-11-12 00:30 | PC.NURSE ---
Pt to imaging at this time.
[2020-11-12 00:36] LABS: Magnesium 1.9 mg/dL (1.6-2.3)
[2020-11-12 00:50] LABS: Troponin I < 0.012 ng/mL (0.000-0.034)
[2020-11-12] MEDS: SODIUM CHLORIDE 0.9% IV 1,000 ML 999 ML IV CONT (00:52)
--- NOTE | 2020-11-12 02:57 | ED.SYNCOPE ---
HPI - Syncope General Chief Complaint: Syncope Stated Complaint: passed out 3X yesterday, hit head on concrete Time Seen by Provider: 11/12/20 00:08 Source: patient, RN notes reviewed and old records reviewed Mode of arrival: ambulatory Limitations: no limitations History of Present Illness HPI narrative: This is a 29 year old male with history of ravi cardia , frequent syncopal episodes who presents for evaluation of a head injury. Patient reports that he has been having syncope episodes for 2 years. These episodes seem to happen almost daily. He states yesterday he had 3 episodes of syncope but he has not passed out today. He came to ER today because he has right side headache from hitting his head yesterday when he passed out. She denies dizziness, nausea or vomiting today. He also denies neck pain or focal deficits. He reports his dizziness occur yesterday with position change. He denies chest pain or palpitations. 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 Related Data Home Medications Medication Instructions Recorded Confirmed No Home Medications 12/30/19 11/03/20 Allergies Allergy/AdvReac Type Severity Reaction Status Date / Time adhesive Allergy Unknown skin rash Verified 11/12/20 00:21 Review of Systems Review of Systems: All systems reviewed & are unremarkable except as noted in HPI and below PMFSH Past Medical History Medical History (Updated 11/12/20 @ 03:06 by Queenie Brooks MD) Bradycardia Hand fracture History of cardiac monitoring Surgical History Surgical History History of cardiac catheterization Social History Social History Smoking packs per day: 0.5 Smoking cigarettes per day: 10.0 Years smoked: 22 Smoking pack-years: 11.00 Smoking status: Current every day smoker Tobacco type: cigarettes Second hand tobacco smoke exposure: Yes Alcohol intake: never Gender identity (if verbalized by the patient): Male Exam Const: General: no acute distress and alert Orientation/consciousness: patient oriented x3 Eyes: Pupils: Equal, round and reactive pupils present EOM: EOMs intact bilaterally Neck: Neck: normal visual inspection Chest: Chest palpation & inspection: normal inspection of the chest Resp: Effort & Inspection: normal respiratory effort and no retractions Auscultation: clear to auscultation bilaterally Cardio: Rate: regular rate Rhythm: regular rhythm Heart sounds: no murmurs GI: GI Palp: Yes Soft to palpation and No Tenderness to palpation present (GI) Auscultation: normal bowel sounds Back/Spine/Pelvis: Back: no CVA tenderness Skin: General skin exam: normal color Rashes: no rashes Neuro: General: patient oriented x3, moves all extremities and CN's II-XI intact bilaterally Psych: Mental Status: mental status grossly normal Affect: normal affect Course Reevaluation(s) Reevaluation #1: Patient is ready for discharge home. Labs and CT unremarkable. Date: 11/12/20 Time: 03:03 Consultations Consultation #1: I spoke with Dr. Ledbetter who is okay with patient getting outpatient CT that he has scheduled. Date: 11/12/20 Time: 03:02 Consultation #2: I spoke with DR. viramontes his rubber boots and shoes repairer and he reports patients heart rate runs as low as 39 and 40s so he can be discharge home. PAtient denies dizziness in ER Date: 11/12/20 Time: 03:03 Vital Signs Vital signs: Vital Signs Temperature 98.4 F 11/11/20 21:00 Pulse Rate 42 L 11/11/20 21:00 Respiratory Rate 18 11/11/20 21:00 Blood Pressure 138/66 11/11/20 21:00 Pulse Oximetry 100 11/11/20 21:00 Temperature 98.4 F 11/12/20 00:12 Pulse Rate 51 L 11/12/20 03:11 Respiratory Rate 14 11/12/20 03:11 Blood Pressure 119/85 11/12/20 03:11 Pulse Oximetry 98 11/12/20 03:11 MDM - Syncope Medical Records At
== END 2020-11-12 03:16 | disposition home or self-care (01) ==
PROVIDERS: Emergency Medicine; Emergency Provider General Practice; PCP Internal Medicine
DX: R55 Syncope and collapse (principal); S09.90XA Unspecified injury of head, initial encounter; F17.210 Nicotine dependence, cigarettes, uncomplicated; R00.1 Bradycardia, unspecified; W22.8XXA Striking against or struck by other objects, initial encounter
CPT/HCPCS: 36415; 70450; 80048; 83735; 84484; 85025; 93005; 96361; 96365; 99284; J0131; J7030

== ENCOUNTER 2020-11-12 12:29 | Outpatient (CLI) | payer OTHER, SELFPAY ==
--- NOTE | ~2020-11-12 | CT_ITS ---
EXAMINATION: CTA brain carotid EXAM DATE: 11/12/2020 13:12 INDICATION: R55 . Syncope. Loss of consciousness Tuesday. Headache and dizziness. TECHNIQUE: Noncontrast head CT. Spiral CTA of the carotid arteries was performed with intravenous i njection 100 cc of Omnipaque 350. Axial, coronal, sagittal reformatted images reviewed. Additional r eformatted images created on dedicated 3-D workstation. NASCET comparable standard used to assess th e degree of arterial stenosis. Spiral CT angiogram cerebral arteries performed with the same intrave nous injection of contrast. Source images of the brain CTA transferred to dedicated workstation for 3 -D rotational image creation. Coronal, sagittal maximum intensity pixel images also reviewed. The d ose-length product (DLP) for this examination was 1542.71 mGy-cm. The exposure was tailored accordi ng to patient size, and iterative reconstruction (ASIR) was used as additional dose reduction techniq ue. Comparison is made to prior examination from 11/12/2020. FINDINGS: Left vertebral artery appears to end in the posterior inferior cerebellar artery, a congeni eddie variant. There is bilateral carotid 0% stenosis. There is no carotid or vertebral basilar arteri al dissection or fibromuscular dysplasia. There are no cerebral artery aneurysms. There is symmetric cerebral artery arborization. The sagittal, transverse and sigmoid sinuses enhance normally, no venou s sinus thrombosis. Internal cerebral veins also enhance normally. There is no acute intraparenchymal hemorrhage. No evidence of intraparenchymal brain mass lesion. N o evidence of acute infarction. There is no mass effect or midline shift. There is no obstructive hyd rocephalus suspected. There are no extra-axial collections. Incidental Findings: None. IMPRESSION: 1. Unremarkable CTA brain carotid exam. 2. Bilateral carotid bulb 0% stenosis. Reviewed, dictated and finalized at location A.
== END 2020-11-12 12:30 | disposition home or self-care (01) ==
LOC: ANHIMG 12:33
PROVIDERS: PCP Internal Medicine; Visit Provider Psychiatry & Neurology Neurology
DX: R55 Syncope and collapse (principal)
CPT/HCPCS: 70496; 70498; Q9967

== ENCOUNTER 2020-12-12 10:37 | Outpatient (CLI) | payer OTHER, SELFPAY ==
--- NOTE | 2020-12-13 13:10 | WPDNEUROLOGY ---
Neurology EEG Report General Information Date of Study: 12/12/20 TEST eeg DIAGNOSIS dizziness CONDITION OF RECORDING awake and drowsy EEG NUMBER [id number] CLINICAL HISTORY patient reported he has been losing consciousness 2 to 3 times a week for a year or 2. Can happen while being active or just sitting and watching TV. EEG DESCRIPTION Basic resting occipital frequency consists of small amount of poorly organized low voltage 8 to 10 hertz per 2nd alpha admixed with low-voltage 15 to 18 hertz per 2nd beta. During drowsiness low-voltage beta activity seen diffusely admixed with waxing and waning posterior alpha rhythm and 6 to 7 hertz per 2nd theta anterior. Photic stimulation produced normal drive. Hyperventilation not done. Non paroxysmal. Nonfocal. Nonlateralizing. IMPRESSION no significant abnormalities noted
== END 2020-12-12 10:38 | disposition home or self-care (01) ==
LOC: ANHNEURO 10:38
PROVIDERS: PCP Internal Medicine; Visit Provider Psychiatry & Neurology Neurology
DX: R42 Dizziness and giddiness (principal)
CPT/HCPCS: 95816

== ENCOUNTER 2021-04-15 07:27 | Emergency (ER) | payer OTHER, SELFPAY ==
[2021-04-15 07:32] VITALS: BP 145/88; PULSE 55; RESP 18; TEMP 36.9; O2SAT 99
--- NOTE | 2021-04-15 07:48 | ED.DENTAL ---
HPI - Dental/Oral General Chief complaint: Dental/Oral Stated complaint: mouth swelling Time Seen by Provider: 04/15/21 07:48 Source: patient and family Mode of arrival: ambulatory Limitations: no limitations History of Present Illness HPI Narrative: Patient is a 30-year-old male with a history of sinus bradycardia presenting to the emergency department for evaluation of right lower molar dental pain, small amount of swelling. Patient reports he has had increased swelling over the past 48 hours. Patient reports pain. Denies any drainage or abscess at this point. Denies fever, chills, denies any redness of the face or significant facial swelling. Patient denies any neck pain, neck swelling or tender lymph nodes. No difficulty with breathing. No shortness of breath. No difficulty with swallowing. Patient has history of significant dental caries, states that he has been seen by dentist before and told he needs multiple tooth extractions which he states he decided to put off. Patient does not currently have a dentist due to insurance constraints. Patient states he has been taking ibuprofen with some improvement in the pain. No recent dental trauma or facial trauma. Patient does smoke. Related Data Allergies Allergy/AdvReac Type Severity Reaction Status Date / Time adhesive Allergy Unknown skin rash Verified 02/20/21 14:26 Review of Systems Review of Systems: CONSTITUTIONAL: Denies fever CARDIOVASCULAR: Denies chest pain HEENT: Denies congestion, reports right lower molar pain RESPIRATORY: Denies cough or dyspnea. GASTROINTESTINAL: Denies abdominal pain SKIN: Denies rash MUSCULOSKELETAL: Denies back pain NEUROLOGIC: Denies headache . [facility] Past Medical History Medical History (Updated 04/15/21 @ 08:03 by Geri Bergeron MD) Bradycardia Hand fracture History of cardiac monitoring Surgical History Surgical History History of cardiac catheterization Social History Social History Smoking packs per day: 0.5 Smoking cigarettes per day: 10.0 Years smoked: 22 Smoking pack-years: 11.00 Smoking status: Current every day smoker Tobacco type: cigarettes Second hand tobacco smoke exposure: Yes Alcohol intake: never Gender identity (if verbalized by the patient): Male Exam Narrative: GENERAL: Awake, alert, conversant HEAD: Normocephalic, atraumatic. EYES: PERRLA and EOMI. ENT: Nares clear, no rhinorrhea or epistaxis. Mucous membranes moist. Uvula is midline. Numerous dental caries. There is no periapical abscess that is drainable on exam. No purulence. No trismus. No elevation of the palate. There is tenderness to tapping of tooth number 28,29. No neck edema. Mild edema of the right lower mandible. No overlying erythema. No fluctuance. No induration. NECK: Supple. No cervical lymphadenopathy. No submandibular lymphadenopathy. No neck edema. CHEST: No respiratory distress, breathing even and non labored HEART: Regular rate, sinus rhythm ABDOMEN:Non distended, non tender EXTREMITIES: Normal range of motion. No edema. SKIN: Warm, dry, no rash. NEURO:No focal deficits. Alert and oriented x3 Course Vital Signs Vital signs: Vital Signs Temperature 36.9 C 04/15/21 07:32 Pulse Rate 55 L 04/15/21 07:32 Respiratory Rate 18 04/15/21 07:32 Blood Pressure 145/88 H 04/15/21 07:32 Pulse Oximetry 99 04/15/21 07:32 Temperature 36.9 C 04/15/21 07:32 Pulse Rate 55 L 04/15/21 07:32 Respiratory Rate 18 04/15/21 07:32 Blood Pressure 145/88 H 04/15/21 07:32 Pulse Oximetry 99 04/15/21 07:32 MDM - Dental/Oral MDM Narrative Medical decision making narrative: Patient's pain is consistent with dental caries. At the time of assessment, vital signs are stable. No trismus. Patient has extensive dental caries. There are no signs of systemic illness, no focal signs of
== END 2021-04-15 08:20 | disposition home or self-care (01) ==
PROVIDERS: Emergency Provider Emergency Medicine; PCP Internal Medicine
DX: K02.9 Dental caries, unspecified (principal); F17.210 Nicotine dependence, cigarettes, uncomplicated
CPT/HCPCS: 99283

== ENCOUNTER 2021-04-28 19:02 | Emergency (ER) | payer OTHER, SELFPAY ==
--- NOTE | ~2021-04-28 | XR_ITS ---
XR chest 2V DATE: 04/28/2021 19:21 INDICATION: Chest pain TECHNIQUE: PA and lateral views COMPARISON: 10/10/2019 2 view chest FINDINGS: Bilateral hyperinflation.. No pulmonary infiltrate or consolidation, pleural effusion or pu lmonary vascular congestion or pneumothorax. No hilar or mediastinal enlargement. Normal heart size. Included skeletal structures are unremarkable. IMPRESSION: Bilateral hyperinflation; otherwise no active cardiac pulmonary disease. No significant change since 10/10/2019 Reviewed, dictated and finalized at location A. IMPRESSION: Bilateral hyperinflation; otherwise no active cardiac pulmonary dis ease. No significant change since 10/10/2019
--- NOTE | 2021-04-28 19:04 | ECG_ITS ---
Measurements Intervals [place] Rate: 51 P: 42 SC: 125 QRS: 84 QRSD: 98 T: 51 QT: 405 QTc: 377 Interpretive Statements SINUS BRADYCARDIA COMPARED TO ECG 11/11/2020 21:07:56 NO SIGNIFICANT CHANGES Electronically Signed On 04-29-2021 13:00:49 CDT by Nasrin Abdalla M.D.
[2021-04-28 19:14] VITALS: BP 134/81; PULSE 55; RESP 14; TEMP 36.6; O2SAT 99
[2021-04-28 19:16] LABS: Basophils Percent Auto 0.5 % (0.2-1.2); Eosinophils Absolute Auto 0.1 K/mm3 (0-0.3); Eosinophils Percent Auto 1.7 % (0-4.4); Hemoglobin 15.1 g/dL (14.0-18.0); Immature Granulocyte Absolute 0.02 K/mm3 (0.00-0.031); Immature Granulocyte Percent A 0.3 % (0-0.5); Lymphocytes Absolute Auto 2.36 K/mm3 (0.9-3.2); Lymphocytes Percent Auto 30.7 % (18.3-44.2); Mean Corpuscular HGB Conc 34.3 g/dl (32-36); Mean Corpuscular Hemoglobin 29.2 pg (26-34); Mean Corpuscular Volume 84.9 fl (80-100); Mean Platelet Volume 9.5 fl (7.4-10.4); Monocytes Absolute Auto 0.7 K/mm3 (0.1-0.6); Monocytes Percent Auto 8.7 % (2.6-8.5); Neutrophils Absolute Auto 4.5 K/mm3 (1.3-6.7); Neutrophils Percent Auto 58.1 % (45.5-73.1); Platelet Count Result 292 k/mm3 (150-375); Red Blood Count 5.18 M/mm3 (4.6-6.20); Red Cell Distribution Width 12.8 % (11.5-14.5); White Blood Count 7.7 K/mm3 (4.5-10.0)
[2021-04-28 19:19] VITALS: O2SAT 98
[2021-04-28] MEDS: ASPIRIN 81 MG CHEWABLE TABLET 324 MG PO (19:23)
[2021-04-28 19:27] LABS: Alanine Aminotransferase 19 U/L (4-50); Albumin Level 4.7 g/dL (3.5-5.1); Alkaline Phosphatase 77 U/L (38-126); Anion Gap 10 mmol/L (8-16); Aspartate Amino Transferase 32 U/L (17-59); Bilirubin,Total 0.8 mg/dL (0.2-1.3); Blood Urea Nitrogen 13 mg/dL (9-20); Calcium 8.9 mg/dL (8.4-10.2); Carbon Dioxide 23 mmol/L (22-30); Chloride 106 mmol/L (98-107); Estimated CRCL calculation 119 ml/min; Estimated Glomerular Filt Rate > 60; Glucose 140 mg/dL (65-110); Lipase 38 U/L (23-300); Potassium 3.8 mmol/L (3.4-5.0); Sodium 139 mmol/L (137-145)
[2021-04-28 20:05] LABS: Troponin I < 0.012 ng/mL (0.000-0.034)
[2021-04-28 20:05] LABS: Partial Thromboplastin Time 25.1 SECONDS (22.3-36.8); Prothrombin Time 13.1 Seconds (11.1-14.7)
--- NOTE | 2021-04-28 20:11 | ED.CHESTPAIN ---
HPI - Chest Pain General Chief Complaint: Chest Pain Stated Complaint: Chest pain Time Seen by Provider: 04/28/21 19:49 Source: patient History of Present Illness HPI narrative: Patient presents with left-sided chest pain. Reports that started proximally 1 hour prior to arrival in the ER he was sitting down eating Ramen noodles made of a sharp pain on his left chest his symptoms got progressively worse he came to the ER for evaluation. Reports currently is feeling improved. Denied association with shortness of breath he is unable describe any clear aggravating or alleviating factors such as change with physical activity body position or with deep inspiration. Denies any shortness of breath, nausea, vomiting, diarrhea denies any fevers or chills. Related Data Allergies Allergy/AdvReac Type Severity Reaction Status Date / Time adhesive Allergy Unknown skin rash Verified 04/28/21 19:18 Review of Systems Review of Systems: CONSTITUTIONAL: Denies fever, chills, or sweats. EYES: Denies visual changes, redness, or discharge. ENT: Denies rhinorrhea, congestion, sore throat, or otalgia. CARDIOVASCULAR: Denies palpitations, or edema. RESPIRATORY: Denies cough or dyspnea. GASTROINTESTINAL: Denies abdominal pain, nausea, vomiting, or diarrhea. GENITOURINARY: Denies dysuria or hematuria. SKIN: Denies rash or itching. MUSCULOSKELETAL: Denies back pain, joint pain, or myalgia. NEUROLOGIC: Denies headache, numbness, dizziness, or weakness. PSYCHIATRIC: Denies anxiety or depression. All systems reviewed & are unremarkable except as noted in HPI and below PMFSH Past Medical History Medical History (Updated 04/29/21 @ 00:00 by [facility] Daemon) Bradycardia Hand fracture History of cardiac monitoring Surgical History Surgical History History of cardiac catheterization Social History Social History Smoking packs per day: 0.5 Smoking cigarettes per day: 10.0 Years smoked: 22 Smoking pack-years: 11.00 Smoking status: Current every day smoker Tobacco type: cigarettes Second hand tobacco smoke exposure: Yes Alcohol intake: never Gender identity (if verbalized by the patient): Male Exam Narrative: GENERAL: Well-appearing, well-nourished, and in no acute distress. HEAD: Normocephalic, atraumatic. EYES: PERRLA and EOMI. ENT: Nares clear, no rhinorrhea or epistaxis. Mucous membranes moist. NECK: Supple. No masses. No JVD CHEST: Clear to auscultation. No respiratory distress. No wheezes rales or rhonchi HEART: Regular rate and rhythm. No murmur heard. Normal peripheral pulses. ABDOMEN: Soft, nontender, nondistended, normal active bowel sounds. EXTREMITIES: Normal range of motion. No edema. SKIN: Warm, dry, no rash. NEURO: No focal deficits. Alert and oriented x3. PSYCH: Normal mood and affect. Course Reevaluation(s) Reevaluation #1: Patient resting comfortably results and plan reviewed with patient. Patient comfortable outpatient plan. Date: 04/28/21 Time: 22:59 Vital Signs Vital signs: Vital Signs Temperature 36.6 C 04/28/21 19:14 Pulse Rate 55 L 04/28/21 19:14 Respiratory Rate 14 04/28/21 19:14 Blood Pressure 134/81 04/28/21 19:14 Pulse Oximetry 99 04/28/21 19:14 Temperature 36.6 C 04/28/21 19:14 Pulse Rate 48 L 04/28/21 23:08 Respiratory Rate 16 04/28/21 23:08 Blood Pressure 126/86 04/28/21 23:08 Pulse Oximetry 100 04/28/21 23:08 MDM - Chest Pain MDM Narrative Medical decision making narrative: H&P as above, vss, pt looks clinically well, exam reassuring, labs unremarkable to include delta troponin, img without acute process, additional labs/img considered, symptomatic relief available as needed, on reevaluation pt continues to looks clinically well. Symptoms remain of unclear etiology however there is low concern for ACS, PE, dissection, pneumothorax. plan
[2021-04-28 20:30] VITALS: BP 127/83; PULSE 53; RESP 16; O2SAT 99
[2021-04-28 21:12] VITALS: BP 127/82; PULSE 49; RESP 18; O2SAT 100
[2021-04-28 22:31] VITALS: BP 118/72; PULSE 52; RESP 14; O2SAT 100
[2021-04-28 22:40] LABS: Troponin I < 0.012 ng/mL (0.000-0.034)
[2021-04-28 23:08] VITALS: BP 126/86; PULSE 48; RESP 16; O2SAT 100
== END 2021-04-28 23:08 | disposition home or self-care (01) ==
PROVIDERS: Emergency Medicine; Emergency Provider Emergency Medicine; PCP Internal Medicine
DX: R07.9 Chest pain, unspecified (principal); F17.210 Nicotine dependence, cigarettes, uncomplicated; R00.1 Bradycardia, unspecified
CPT/HCPCS: 36415; 71046; 80053; 83690; 84484; 85025; 85610; 85730; 93005; 99284; A9270

== ENCOUNTER 2021-08-02 21:37 | Emergency (ER) | payer OTHER, SELFPAY ==
--- NOTE | ~2021-08-02 | XR_ITS ---
EXAMINATION: XR foot RT min 3V DATE: 08/02/2021 22:10 INDICATION: Right foot injury and pain. TECHNIQUE: 4 views of right foot were obtained. COMPARISON: None. FINDINGS: There is dorsiflexion of the metatarsophalangeal joints. No fracture. There is mild osteoar thritis of first metatarsophalangeal joint. IMPRESSION: 1. No fracture. Reviewed, dictated and finalized at location A. IMPRESSION: 1. No fracture.
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
[2021-08-02 21:39] VITALS: BP 166/96; PULSE 77; RESP 16; TEMP 36.3; O2SAT 99
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
[2021-08-02] MEDS: NAPROXEN 500 MG TABLET PO (22:25)
== END 2021-08-02 22:56 | disposition home or self-care (01) ==
PROVIDERS: Emergency Provider Emergency Medicine; PCP Internal Medicine
DX: S90.31XA Contusion of right foot, initial encounter (principal); F17.210 Nicotine dependence, cigarettes, uncomplicated; V86.75XA Person on outside of 3- or 4- wheeled all-terrain vehicle (ATV) injured in nontraffic accident, initial encounter
CPT/HCPCS: 73610; 73630; 99283; A9270

== ENCOUNTER 2022-01-14 13:27 | Emergency (ER) | payer OTHER, SELFPAY ==
[2022-01-14 13:38] VITALS: BP 144/95; PULSE 68; RESP 16; TEMP 36.4; O2SAT 100
--- NOTE | 2022-01-14 13:50 | ED.GENADULT ---
HPI - General Adult General Chief complaint: Abdominal Pain Stated complaint: vomitting/ abdominal pain Time Seen by Provider: 01/14/22 13:50 Source: patient, RN notes reviewed and old records reviewed Mode of arrival: ambulatory Limitations: no limitations History of Present Illness HPI narrative: 31-year-old male presents to the [facility] with complaints of vomiting blood. Patient reports this morning he was drinking coffee when he went upstairs to use the bathroom. While using the bathroom started coughing and then vomited bright red blood 4 times. Last emesis was at 10:15 a.m. this morning. Patient reports that he went to a local ER where he was told it was a 4 hour wait and he did not want await at that time. Comes to the [facility] wanting an evaluation. She denies any abdominal pain while sitting in room. Nontoxic in appearance Explained to patient that vomiting blood needs advanced testing such as blood work and a CT scan. Patient shows that to be transferred to [place], declined EMS Onset (ago): hour(s) (4) Related Data Home Medications Medication Instructions Recorded Confirmed No Home Medications 09/23/21 01/14/22 Allergies Allergy/AdvReac Type Severity Reaction Status Date / Time adhesive Allergy Unknown skin rash Verified 01/14/22 13:41 Review of Systems Review of Systems: All systems reviewed & are unremarkable except as noted in HPI and below Constitutional: Constitutional: Reports no additional constitutional complaints Eyes: Eyes: Reports no additional eye complaints ENT: Reports system reviewed and no additional complaints, except as documented Cardiovascular: Cardiovascular: Reports no additional cardiovascular complaints, Denies chest pain and Denies dyspnea Respiratory: Respiratory: Reports no additional respiratory complaints, Denies chest congestion, Denies cough and Denies dyspnea Gastrointestinal: Gastrointestinal: Reports as per HPI, Denies abdominal pain and Reports vomiting (Bright red blood) Musculoskeletal: Musculoskeletal: Reports no additional musculoskeletal complaints Integumentary/Breasts: Skin/Breast: Reports system reviewed and no additional complaints, except as docu Neurologic: Reports system reviewed and no additional complaints, except as documented Psychiatric: Psychiatric: Reports no additional psychiatric complaints Allergic/Immunologic: Allergic/Immunologic: Reports no additional allergic/immunologic complaints PMF Past Medical History Medical History (Updated 01/14/22 @ 14:14 by Anastacia Reyes APRN) Bradycardia Hand fracture History of cardiac monitoring Surgical History Surgical History History of cardiac catheterization Social History Social History Smoking packs per day: 0.5 Smoking cigarettes per day: 10.0 Years smoked: 22 Smoking pack-years: 11.00 Smoking status: Former smoker Tobacco type: cigarettes Second hand tobacco smoke exposure: Yes Alcohol intake: never Gender identity (if verbalized by the patient): Male Comments At the time of my signature, I reviewed and agree with the nursing past medical, surgical, social, and family history. There is no relevant family history pertinent to the patient complaint. Exam Const: General: cooperative, healthy appearing, comfortable, no acute distress, well developed, alert and average body habitus Nutritional Appearance: average body habitus and well nourished Orientation/consciousness: patient oriented x3 Limitations: no limitations HENMT: Head: normal to inspection Ears: hearing grossly normal bilaterally Face/Nose/Sinus: Normal external nose present, Normal nares present, Normal nasal mucous membranes and turbinates present and normal facial exam Face and sinus: normal facial exam Mouth: Yes Normal oral and palatal mucosa present, Yes lip normal and Yes mo
== END 2022-01-14 14:08 | disposition short-term general hospital (02) ==
PROVIDERS: Emergency Provider Nurse Practitioner
DX: K92.0 Hematemesis (principal); Z87.891 Personal history of nicotine dependence
CPT/HCPCS: 99212; G0463

== ENCOUNTER 2022-03-05 10:56 | Emergency (ER) | payer OTHER, SELFPAY ==
[2022-03-05 11:16] VITALS: BP 147/67; PULSE 68; RESP 16; TEMP 36.8; O2SAT 100
--- NOTE | 2022-03-05 12:10 | ED.NECK ---
HPI - Neck Pain/Injury General Chief Complaint: Neck Pain/Injury Stated Complaint: need xray on neck Time Seen by Provider: 03/05/22 11:14 History of Present Illness HPI Narrative: Patient is a 31-year-old male presenting with neck pain. Patient states that last night his girlfriend asked him to walk on her back. He did so and then he asked her to do the same. As she was walking on his back her foot slipped and she stepped on his neck. He states since then the back of his neck has been sore. States it feels very tight. States he took some ibuprofen which did help and then he was able to go to sleep. States he came here last night to be seen but the wait was too long so he went home. He denies numbness or weakness. No lower back pain. No further injuries or complaints. Related Data Allergies Allergy/AdvReac Type Severity Reaction Status Date / Time No Known Drug Allergies Allergy Other Verified 03/05/22 11:15 Review of Systems Review of Systems: All systems reviewed & are unremarkable except as noted in HPI and below PMFSH Past Medical History Medical History (Updated 03/06/22 @ 00:00 by [facility] Daemon) Bradycardia Hand fracture History of cardiac monitoring Surgical History Surgical History History of cardiac catheterization Social History Social History Smoking packs per day: 0.5 Smoking cigarettes per day: 10.0 Years smoked: 22 Smoking pack-years: 11.00 Smoking status: Former smoker Tobacco type: cigarettes Second hand tobacco smoke exposure: Yes Alcohol intake: never Gender identity (if verbalized by the patient): Male Exam Narrative: GENERAL: Well-appearing, well-nourished, and in no acute distress. HEAD: Normocephalic, atraumatic. EYES: PERRLA and EOMI. ENT: Nares clear, no rhinorrhea or epistaxis. Mucous membranes moist. NECK: Supple. No midline cervical tenderness, moderate paraspinal tenderness of cervical spine, upper trapezius feels tight to palpation bilaterally CHEST: Clear to auscultation. No respiratory distress. HEART: Regular rate and rhythm. No murmur heard. Normal peripheral pulses. ABDOMEN: Soft, nontender, nondistended, normal active bowel sounds. EXTREMITIES: Normal range of motion. No edema. SKIN: Warm, dry, no rash. NEURO: No focal deficits. Alert and oriented x3. 5/5 strength in all extremities PSYCH: Normal mood and affect. Course Vital Signs Vital signs: Vital Signs Temperature 98.2 F 03/05/22 11:16 Pulse Rate 68 03/05/22 11:16 Respiratory Rate 16 03/05/22 11:16 Blood Pressure 147/67 H 03/05/22 11:16 Pulse Oximetry 100 03/05/22 11:16 Oxygen Delivery Room Air 03/05/22 11:16 Temperature 98.2 F 03/05/22 11:16 Pulse Rate 68 03/05/22 11:16 Respiratory Rate 16 03/05/22 11:16 Blood Pressure 147/67 H 03/05/22 11:16 Pulse Oximetry 100 03/05/22 11:16 Oxygen Delivery Room Air 03/05/22 11:16 MDM - Neck Pain/Injury MDM Narrative Medical decision making narrative: Patient is a 31-year-old male presenting with posterior neck soreness and stiffness. Exam is remarkable for the above. Patient's exam is reassuring. There are no red flag signs or symptoms. No neurologic deficits. Given the mechanism and reassuring exam, do not feel imaging is necessary. Will give Tylenol and a dose of Flexeril. Advised to follow-up with his PCP. Appropriate return precautions given. Discharged in stable condition. Critical Care Time Critical Care Time Critical Care Time: No Discharge Plan Discharge Clinical Impression: Strain of neck muscle Patient Disposition: Home, Self-Care Condition: Stable Instructions: Antibiotic Form, Cervical Strain (ED) Additional Instructions: Please follow-up with your primary care provider. If your pain worsens, you develop numbness or weakness, or other concerning sympt
[2022-03-05] MEDS: ACETAMINOPHEN 500 MG TABLET 1000 MG PO (12:23)
[2022-03-05] MEDS: CYCLOBENZAPRINE HCL 10 MG TABLET PO (12:24)
== END 2022-03-05 12:39 | disposition home or self-care (01) ==
PROVIDERS: Emergency Provider Emergency Medicine
DX: S16.1XXA Strain of muscle, fascia and tendon at neck level, initial encounter (principal); Z87.891 Personal history of nicotine dependence; X58.XXXA Exposure to other specified factors, initial encounter
CPT/HCPCS: 99283; A9270

== ENCOUNTER 2022-04-13 22:17 | Emergency (ER) | payer OTHER, SELFPAY ==
--- NOTE | ~2022-04-13 | CT_ITS ---
EXAMINATION: CT brain wo con DATE: 04/13/2022 22:45 INDICATION: Syncope episode with fall; hit right side head. . TECHNIQUE: Computed tomography (CT) of the head was performed without intravenous contrast. The mA wa s adjusted according to patient size. Iterative reconstruction technique was employed. The dose-lengt h product was 605.33 mGy-cm. COMPARISON: 11/12/2020. FINDINGS: No acute intracranial hemorrhage or extra-axial fluid collection. No hydrocephalus, mass, or herniation. No acute ischemic infarct. Unremarkable dural venous sinus attenuation. No acute osseous abnormality. The aerated spaces are clear. Old right caudate head lacunar infarct. IMPRESSION: No acute intracranial process. Reviewed, dictated and finalized at location K. SORTER
[2022-04-13 22:20] VITALS: BP 165/99; PULSE 60; RESP 18; TEMP 36.4; O2SAT 98
[2022-04-13 22:25] VITALS: O2SAT 98
--- NOTE | 2022-04-13 22:26 | ED.SYNCOPE ---
HPI - Syncope General Chief Complaint: Syncope Stated Complaint: fainted, hit right side of face. Time Seen by Provider: 04/13/22 22:26 Source: patient, family and RN notes reviewed Mode of arrival: wheelchair Limitations: no limitations History of Present Illness HPI narrative: Patient was at home eating dinner on the porch he stood up to take his plate inside and then passed out. He hit his head on the porch. Patient has had multiple events since 2019. He has had 4 CT scans of his brain including a CTA. MRI of his brain MRI of C-spine. MRI did show a possible old stroke. He has also had echocardiogram, CTA of his chest, evaluation by Cardiology neurology has not created a diagnosis at this point. He is not currently on any medications. He has been told he does not have a seizure disorder. They apparently had gone to [facility] earlier tonight but the wait was too long so they came here. complaint: loss of consciousness and collapsed Onset (ago): hour(s) (2.5) Duration of episode: 2 -: minutes(s) Prodromal symptoms: none Witnessed: Yes - by Bystander Context: standing up Injuries sustained associated with event: head Current symptoms: lightheaded and headache History: previous syncopal episode Treatments prior to arrival: none Related Data Home Medications Medication Instructions Recorded Confirmed No Home Medications 04/13/22 04/13/22 Allergies Allergy/AdvReac Type Severity Reaction Status Date / Time No Known Drug Allergies Allergy Other Verified 03/05/22 11:15 Review of Systems Review of Systems: All systems reviewed & are unremarkable except as noted in HPI and below PMFSH Past Medical History Medical History (Updated 04/13/22 @ 23:58 by Prasanna Hoang MD) Bradycardia Hand fracture History of cardiac monitoring Surgical History Surgical History History of cardiac catheterization Social History Social History Smoking packs per day: 0.5 Smoking cigarettes per day: 10.0 Years smoked: 22 Smoking pack-years: 11.00 Smoking status: Former smoker Tobacco type: cigarettes Second hand tobacco smoke exposure: Yes Alcohol intake: never Gender identity (if verbalized by the patient): Male Exam Const: General: healthy appearing, no acute distress and alert Nutritional Appearance: well nourished Orientation/consciousness: patient oriented x3 Limitations: no limitations HENMT: Head: No palpable skull fracture present, normocephalic and scalp tenderness Ears: external ears normal Face/Nose/Sinus: Normal external nose present Face and sinus: normal facial exam Eyes: Conjunctivae: conjunctivae normal Pupils: Equal, round and reactive pupils present EOM: EOMs intact bilaterally Neck: Neck: normal visual inspection Resp: Effort & Inspection: normal respiratory effort Auscultation: clear to auscultation bilaterally Cardio: Rate: regular rate Rhythm: regular rhythm GI: Auscultation: normal bowel sounds Back/Spine/Pelvis: Cervical Spine: cervical ROM normal Thoracic/Lumbar Spine: thoraco-lumbar ROM normal Skin: General skin exam: normal color Rashes: no rashes Neuro: General: patient oriented x3, moves all extremities, no focal motor deficits and CN's II-XI intact bilaterally Speech: normal speech Gait exam (Neuro): Normal gait present Extrem: General: normal to inspection and no clubbing, cyanosis or edema Psych: Mental Status: mental status grossly normal Affect: normal affect Attitude: cooperative Course Vital Signs Vital signs: Vital Signs Temperature 36.4 C 04/13/22 22:20 Pulse Rate 60 04/13/22 22:20 Respiratory Rate 18 04/13/22 22:20 Blood Pressure 165/99 H 04/13/22 22:20 Pulse Oximetry 98 04/13/22 22:20 Oxygen Delivery Room Air 04/13/22 22:20 Temperature 36.4 C 04/14/22 00:05 Pulse Rate 52 L 04/14/22 00:05 Re
--- NOTE | 2022-04-13 22:27 | ECG_ITS ---
Measurements Intervals [place] Rate: 51 P: 6 SC: 134 QRS: 81 QRSD: 90 T: 48 QT: 410 QTc: 380 Interpretive Statements SINUS BRADYCARDIA BASELINE ARTIFACT- I, III, AVL, AVF, V5-V6 BORDERLINE ECG COMPARED TO ECG 04/28/2021 19:11:14 NO SIGNIFICANT CHANGES Electronically Signed On 04-14-2022 6:45:37 OFFICE ENGINEER by Cachorro Austin D.O.
[2022-04-13 22:28] LABS: Glucose Point of Care 89 mg/dl (65-105)
[2022-04-13 22:40] VITALS: PULSE 58
--- NOTE | 2022-04-13 22:40 | PC.NURSE ---
Pt back to room from heat CT, he is able to follow Dr commands at this time, upon assessment s.o. states his Drs. are located at [facility] which is where they went originally and was waiting too long to be seen so they decided to drive here for help. Pt noted more alert, answering questions and following commands better at this time.
[2022-04-13 22:44] VITALS: PULSE 55; RESP 16; O2SAT 99
[2022-04-13 22:53] LABS: Basophils Absolute Auto 0.04 K/mm3 (0.00-0.10); Basophils Percent Auto 0.4 % (0.0-1.0); Hemoglobin 13.2 g/dL (14.0-18.0); Immature Granulocyte Absolute 0.03 K/mm3 (0.00-0.00); Immature Granulocyte Percent A 0.3 % (0.0-0.0); Lymphocytes Absolute Auto 2.83 K/mm3 (1.10-4.50); Lymphocytes Percent Auto 28.9 % (18.0-42.0); Mean Corpuscular HGB Conc 33.8 g/dL (32.0-36.0); Mean Corpuscular Hemoglobin 28.5 pg (27.0-31.0); Mean Corpuscular Volume 84.2 fL (78.0-102.0); Mean Platelet Volume 9.8 fl (8.7-11.0); Monocytes Absolute Auto 0.93 K/mm3 (0.10-0.90); Monocytes Percent Auto 9.5 % (2.0-11.0); Neutrophils Absolute Auto 5.8 K/mm3 (1.7-7.2); Neutrophils Percent Auto 58.9 % (50.0-70.0); Platelet Count Result 284 K/mm3 (150-420); Red Blood Count 4.63 M/mm3 (4.70-6.10); Red Cell Distribution Width 12.9 % (11.6-14.4); White Blood Count 9.8 K/mm3 (4.8-10.8)
[2022-04-13 22:56] VITALS: BP 136/92; PULSE 50; RESP 15
[2022-04-13 23:13] LABS: Alanine Aminotransferase 53 U/L (16-63); Albumin Level 3.9 g/dL (3.4-5.0); Alkaline Phosphatase 99 U/L (46-116); Anion Gap 10 mmol/L (8-16); Aspartate Amino Transferase 27 U/L (15-37); Bilirubin,Total 0.5 mg/dL (0.00-1.00); Blood Urea Nitrogen 16 mg/dL (7-18); Calcium 8.7 mg/dL (8.5-10.1); Carbon Dioxide 27 mmol/L (21-32); Chloride 106 mmol/L (98-108); Estimated CRCL calculation 80 ml/min; Estimated Glomerular Filt Rate > 60; Magnesium 1.8 mg/dL (1.8-2.4); NT Pro B Type Natriuretic Pept 23 pg/mL (0-125); Potassium 3.9 mmol/L (3.5-5.1); Sodium 143 mmol/L (136-145); Total Protein 7.1 g/dL (6.4-8.2); Troponin I 13.5 ng/L (0.00-60.4)
--- NOTE | 2022-04-13 23:13 | PC.NURSE ---
Pt able to roll to his side and use urinal, Pt reports feeling dizzy all the time when he gets up. VSS at this time, pt more alert and answering questions and following commands.
[2022-04-13 23:16] VITALS: BP 142/88; PULSE 51; RESP 15; O2SAT 97
[2022-04-13 23:19] LABS: Glucose 88 mg/dL (70-99); Osmolality Calculated 296 mOsm/kg (285-295)
[2022-04-13 23:32] LABS: Amphetamine Screen Urine Negative (Negative); Barbiturate Screen Urine Negative (Negative); Benzodiazepines Screen Urine Negative (Negative); Cannabinoid Screen Urine Positive (Negative); Cocaine Screen Urine Negative (Negative); Methadone Screen Urine Negative (Negative); Opiate Screen Urine Negative (Negative); Phencyclidine Screen Urine Negative (Negative)
[2022-04-14 00:05] VITALS: BP 123/71; PULSE 52; RESP 18; TEMP 36.4; O2SAT 98
== END 2022-04-14 00:07 | disposition home or self-care (01) ==
PROVIDERS: Emergency Provider Emergency Medicine
DX: R55 Syncope and collapse (principal); Z87.891 Personal history of nicotine dependence
CPT/HCPCS: 36415; 70450; 80053; 80307; 82948; 83735; 83880; 84484; 85025; 93005; 99284

== ENCOUNTER 2022-09-09 19:15 | Emergency (ER) | payer OTHER, SELFPAY ==
[2022-09-09] VITALS (15 sets, daily range): BP systolic 124–183; BP diastolic 92–172; PULSE 45–66; RESP 12–22; TEMP 36.6; O2SAT 96–100
--- NOTE | ~2022-09-09 | XR_ITS ---
EXAMINATION: XR chest 2V 09/09/2022 19:41 INDICATION: Shortness of breath PROCEDURE: 2 view chest COMPARISON: 04/28/2021 FINDINGS: The lungs are clear. The cardiomediastinal silhouette is within normal limits. There are no pleural effusions. There is no pneumothorax suspected. IMPRESSION: 1: NO ACUTE CARDIOPULMONARY DISEASE. Reviewed, dictated and finalized at location A.
--- NOTE | ~2022-09-09 | CT_ITS ---
EXAMINATION: CTA chest PE protocol DATE: 09/09/2022 22:35 CDT INDICATION: Dyspnea. Evaluate for pulmonary embolism. TECHNIQUE: Computed tomographic angiography (CTA) of the chest was performed with 100 mL Omnipaque-35 0 intravenous contrast. The dose-length product was 343.50 mGy-cm. Maximum intensity projection 3D-re constructions of the aorta and other arteries were constructed by the technologist on a separate work station. COMPARISON: CT dated 09/09/2022. FINDINGS: Study is technically adequate without evidence for pulmonary embolism. Cardiomegaly. No sig nificant pleural or pericardial effusion. There is focal groundglass opacification in the wedge-shape d appearance in the right lower lobe which may represent atelectasis or pneumonia. No endobronchial l esions. No pneumothorax. No thoracic lymphadenopathy. No evidence for aortic aneurysm or dissection. No acute osseous abnormality. The upper abdomen is unremarkable. IMPRESSION: 1. No evidence for pulmonary embolism. 2: Wedge-shaped groundglass densities in the right lower lobe which may represent atelectasis or deve loping pneumonia. There is bibasilar dependent atelectasis. 2: Cardiomegaly. Reviewed, dictated and finalized at location A. IMPRESSION: 1. No evidence for pulmonary embolism. 2: Wedge-shaped groundglass densities in the right lower lobe which may represe nt atelectasis or developing pneumonia. There is bibasilar dependent atelectasi s. 2: Cardiomegaly.
--- NOTE | 2022-09-09 19:20 | ECG_ITS ---
Measurements Intervals [place] Rate: 59 P: 12 KS: 139 QRS: 55 QRSD: 83 T: 13 QT: 393 QTc: 392 Interpretive Statements SINUS BRADYCARDIA BORDERLINE T WAVE ABNORMALITY- INFERIOR LEADS BORDERLINE ECG COMPARED TO ECG 04/13/2022 22:49:00 NO SIGNIFICANT CHANGES Electronically Signed On 09-09-2022 20:32:05 CDT by Cachorro Austin D.O.
[2022-09-09 19:45] LABS: Basophils Absolute Auto 0.1 K/mm3 (0.0-0.1); Basophils Percent Auto 0.7 % (0.2-1.2); Eosinophils Absolute Auto 0.2 K/mm3 (0-0.3); Eosinophils Percent Auto 2.4 % (0-4.4); Hemoglobin 15.2 g/dL (14.0-18.0); Immature Granulocyte Absolute 0.03 K/mm3 (0.00-0.031); Immature Granulocyte Percent A 0.4 % (0-0.5); Lymphocytes Absolute Auto 2.53 K/mm3 (0.9-3.2); Lymphocytes Percent Auto 33.1 % (18.3-44.2); Mean Corpuscular HGB Conc 34.5 g/dl (32-36); Mean Corpuscular Hemoglobin 28.6 pg (26-34); Mean Corpuscular Volume 82.7 fl (80-100); Mean Platelet Volume 10.2 fl (7.4-10.4); Monocytes Absolute Auto 0.7 K/mm3 (0.1-0.6); Monocytes Percent Auto 9.3 % (2.6-8.5); Neutrophils Absolute Auto 4.1 K/mm3 (1.3-6.7); Neutrophils Percent Auto 54.1 % (45.5-73.1); Platelet Count Result 307 k/mm3 (150-375); Red Blood Count 5.32 M/mm3 (4.6-6.20); White Blood Count 7.6 K/mm3 (4.5-10.0)
[2022-09-09 19:57] LABS: Alanine Aminotransferase 39 U/L (6-50); Albumin Level 4.7 g/dL (3.5-5.1); Alkaline Phosphatase 90 U/L (38-126); Anion Gap 9 mmol/L (8-16); Aspartate Amino Transferase 31 U/L (17-59); Bilirubin,Total 0.9 mg/dL (0.2-1.3); Blood Urea Nitrogen 10 mg/dL (9-20); Calcium 9.1 mg/dL (8.4-10.2); Carbon Dioxide 24 mmol/L (22-30); Chloride 106 mmol/L (98-107); Estimated CRCL calculation 107 ml/min; Estimated Glomerular Filt Rate > 60; Glucose 97 mg/dL (65-110); Potassium 4.1 mmol/L (3.4-5.0); Sodium 139 mmol/L (137-145)
--- NOTE | 2022-09-09 22:40 | ED.GENADULT ---
HPI - General Adult General Chief complaint: Shortness of Breath/Dyspnea Stated complaint: Shortness of breath Time Seen by Provider: 09/09/22 21:05 History of Present Illness HPI narrative: Patient 31-year-old gentleman who presents the emergency department with chief complaint of shortness of breath. The patient reports that for several days has been having episodes where he feels as though he has to take a deep breath. Patient states that he has not had a cough denies fever reports no swelling in his legs. Patient reports that he has prior history of a stroke. Patient reports no nausea no vomiting denies chest pain. Related Data Allergies Allergy/AdvReac Type Severity Reaction Status Date / Time No Known Drug Allergies Allergy Other Verified 03/05/22 11:15 Review of Systems Review of Systems: A 10 system review of systems was completed on the patient and is negative except for what is stated in the HPI. Nursing and ancillary documentation was reviewed. [facility] Past Medical History Medical History (Updated 09/09/22 @ 23:25 by Casey Prajapati MD) Bradycardia Hand fracture History of cardiac monitoring Surgical History Surgical History History of cardiac catheterization Social History Social History Smoking packs per day: 0.5 Smoking cigarettes per day: 10.0 Years smoked: 22 Smoking pack-years: 11.00 Smoking status: Former smoker Tobacco type: cigarettes Second hand tobacco smoke exposure: Yes Alcohol intake: never Gender identity (if verbalized by the patient): Male Exam Narrative: GENERAL: Well-appearing, well-nourished, and in no acute distress. HEAD: Normocephalic, atraumatic. EYES: PERRLA and EOMI. ENT: Nares clear, no rhinorrhea or epistaxis. Mucous membranes moist. NECK: Supple. CHEST: Clear to auscultation. No respiratory distress. HEART: Regular bradycardic rate and rhythm. No murmur heard. Normal peripheral pulses. ABDOMEN: Soft, nontender, nondistended, normal active bowel sounds. EXTREMITIES: Normal range of motion. No edema. SKIN: Warm, dry, no rash. NEURO: No focal deficits. Alert and oriented x3. PSYCH: Normal mood and affect. Course Course Emergency Course: Differential diagnosis includes pneumonia, pulmonary embolism, ACS Chest x-ray showed no focal consolidation Laboratory studies were obtained on the patient which showed normal CBC normal electrolytes troponin was negative A CT PE protocol was ordered on the patient EKG showed sinus bradycardia rate of [address] elevation or ST depression Vital Signs Vital signs: Vital Signs Temperature 36.6 C 09/09/22 19:31 Pulse Rate 55 L 09/09/22 19:31 Respiratory Rate 16 09/09/22 19:31 Blood Pressure 145/105 H 09/09/22 19:31 Pulse Oximetry 100 09/09/22 19:31 Oxygen Delivery Room Air 09/09/22 19:31 Temperature 36.6 C 09/09/22 19:31 Pulse Rate 57 L 09/09/22 21:10 Respiratory Rate 16 09/09/22 21:10 Blood Pressure 138/99 H 09/09/22 21:10 Pulse Oximetry 99 09/09/22 21:10 Oxygen Delivery Room Air 09/09/22 21:08 Medical Decision Making MDM Narrative Medical decision making narrative: Differential diagnosis includes pneumonia, CHF, ACS Chest x-ray showed no focal infiltrate Laboratory studies showed normal CBC normal CMP troponin was negative BNP was negative CTA of the chest to evaluate for pulmonary embolism showed . No evidence for pulmonary embolism. 2: Wedge-shaped groundglass densities in the right lower lobe which may represent atelectasis or developing pneumonia. There is bibasilar dependent atelectasis. 2: Cardiomegaly. Given the findings consistent with pneumonia on CT patient started on cefdinir and Zithromax and also given a prescription for Tessalon Perles. Vital Signs Vital Signs: Vital Signs Temper
[2022-09-09 22:48] LABS: Troponin I < 0.012 ng/mL (0.000-0.034)
[2022-09-09 23:14] LABS: Troponin I < 0.012 ng/mL (0.000-0.034)
[2022-09-09 23:15] LABS: NT Pro B Type Natriuretic Pept < 20 pg/mL (19.9-100)
[2022-09-09] MEDS: CEFDINIR 300 MG CAPSULE PO (23:40)
[2022-09-09] MEDS: AZITHROMYCIN 250 MG TABLET 500 MG PO (23:40)
== END 2022-09-09 23:40 | disposition home or self-care (01) ==
PROVIDERS: Emergency Provider Emergency Medicine; PCP Internal Medicine
DX: J18.9 Pneumonia, unspecified organism (principal); Z86.73 Personal history of transient ischemic attack (TIA), and cerebral infarction without residual deficits; Z87.891 Personal history of nicotine dependence; R00.1 Bradycardia, unspecified; R94.31 Abnormal electrocardiogram [ECG] [EKG]; I51.7 Cardiomegaly
CPT/HCPCS: 36415; 71046; 71275; 80053; 83880; 84484; 85025; 93005; 99284; A9270; Q9967

== ENCOUNTER 2022-10-11 07:23 | Emergency (ER) | payer OTHER, SELFPAY ==
--- NOTE | ~2022-10-11 | XR_ITS ---
Right foot Technique: AP, oblique, and lateral views were obtained. Clinical History: Injury Findings: No acute fracture or dislocation is seen. Osseous alignment is anatomic. Large type II os n avicular noted. Joint spaces are preserved without erosive or degenerative change. Soft tissues are u nremarkable. Impression: No acute abnormality. Large type II os navicular noted. Reviewed, dictated and finalized at location . Impression: No acute abnormality. Large type II os navicular noted.
--- NOTE | ~2022-10-11 | XR_ITS ---
Right ankle Technique: AP, oblique, and lateral views were obtained. Clinical History: Pain Findings: No acute fracture or dislocation is seen. Osseous alignment is anatomic. Suggestion of mild osteopenia with growth arrest lines present. Ankle mortise and other visualized joint spaces are pre served. Soft tissues are otherwise unremarkable. Impression: No acute fracture or dislocation. Reviewed, dictated and finalized at location . Impression: No acute fracture or dislocation.
[2022-10-11 07:26] VITALS: BP 140/86; PULSE 66; RESP 18; TEMP 36.5; O2SAT 100
--- NOTE | 2022-10-11 07:44 | ED.LOWEXIN ---
HPI - Extremity Injury (Lower) General Chief Complaint: Extremity Injury, Lower Stated Complaint: R foot injury Time Seen by Provider: 10/11/22 07:41 History of Present Illness HPI Narrative: Pt stepped on cat on stairs yesterday morning and jumped up and landed on steps further down and twisted right ankle. Pt says it hurts on the outside part of his ankle and is worse with weight bearing or movement. Pt denies other injury. Related Data Allergies Allergy/AdvReac Type Severity Reaction Status Date / Time No Known Drug Allergies Allergy Other Verified 03/05/22 11:15 Review of Systems Review of Systems: All systems reviewed & are unremarkable except as noted in HPI and below PMFSH Past Medical History Medical History (Updated 10/11/22 @ 08:25 by Chrissy Farmer III, DO) Bradycardia Hand fracture History of cardiac monitoring Surgical History Surgical History History of cardiac catheterization Social History Social History Smoking packs per day: 0.5 Smoking cigarettes per day: 10.0 Years smoked: 22 Smoking pack-years: 11.00 Smoking status: Former smoker Tobacco type: cigarettes Second hand tobacco smoke exposure: Yes Alcohol intake: never Gender identity (if verbalized by the patient): Male Exam Const: General: healthy appearing and no acute distress Orientation/consciousness: patient oriented x3 Limitations: no limitations Neck: Neck: normal visual inspection Resp: Effort & Inspection: normal respiratory effort Auscultation: clear to auscultation bilaterally Cardio: Rate: regular rate Rhythm: regular rhythm GI: GI Palp: Yes Soft to palpation Auscultation: normal bowel sounds Skin: General skin exam: normal color Rashes: no rashes Neuro: General: patient oriented x3, moves all extremities, no meningeal signs, no focal motor deficits and CN's II-XI intact bilaterally Speech: normal speech Extrem: Other: tender over ATFL right ankle minimal swelling and bruising. no deformity no prox fiblulka or 5th mt pain Course Vital Signs Vital signs: Vital Signs Temperature 97.7 F 10/11/22 07:26 Pulse Rate 66 10/11/22 07:26 Respiratory Rate 18 10/11/22 07:26 Blood Pressure 140/86 10/11/22 07:26 Pulse Oximetry 100 10/11/22 07:26 Oxygen Delivery Room Air 10/11/22 07:26 Temperature 97.7 F 10/11/22 07:26 Pulse Rate 66 10/11/22 07:26 Respiratory Rate 16 10/11/22 09:28 Blood Pressure 140/86 10/11/22 07:26 Pulse Oximetry 100 10/11/22 07:26 Oxygen Delivery Room Air 10/11/22 07:26 MDM - Extremity Injury (Lower) MDM Narrative Medical decision making narrative: no fx on x ray reviewed. RICE and motrin and home. Pt has crutches WBAT Differential Diagnosis Differential diagnosis: Likely ankle sprain and strain and ankle fracture Discharge Plan Discharge Clinical Impression: Ankle sprain and strain Patient Disposition: Home, Self-Care Condition: Stable Instructions: Antibiotic Form, Ankle Sprain (DC) Prescriptions: No Action azithromycin [Zithromax Z-Conner] 250 mg tablet See Rx Instructions PO .COMPLEX Qty: 6 0RF Rx Instructions: For 250 mg dose pack: take 500 mg today (day 1), then 250 mg for 4 days (days 2-5) cefdinir 300 mg capsule 300 mg PO Q12H 10 Days Qty: 20 0RF benzonatate 200 mg capsule 200 mg PO TID PRN (Reason: cough) Qty: 21 0RF Follow-up/Referrals: Toro,Dre Monk MD [Primary Care Provider] -
[2022-10-11 09:28] VITALS: RESP 16
== END 2022-10-11 09:29 | disposition home or self-care (01) ==
LOC: ANHED 08:54
PROVIDERS: Emergency Provider Emergency Medicine; PCP Internal Medicine
DX: S93.401A Sprain of unspecified ligament of right ankle, initial encounter (principal); Z87.891 Personal history of nicotine dependence; X50.0XXA Overexertion from strenuous movement or load, initial encounter
CPT/HCPCS: 73610; 73630; 99283

== ENCOUNTER 2023-05-12 21:11 | Emergency (ER) | payer OTHER, SELFPAY ==
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
[2023-05-12 21:25] VITALS: BP 150/108; PULSE 70; RESP 15; TEMP 36.3; O2SAT 100
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
[2023-05-13 00:55] VITALS: BP 146/84; PULSE 68; RESP 15; O2SAT 100
== END 2023-05-13 00:56 | disposition home or self-care (01) ==
PROVIDERS: Emergency Provider Physician Assistant; PCP Internal Medicine
DX: S63.501A Unspecified sprain of right wrist, initial encounter (principal); S66.911A Strain of unspecified muscle, fascia and tendon at wrist and hand level, right hand, initial encounter; Z87.891 Personal history of nicotine dependence; Y04.0XXA Assault by unarmed brawl or fight, initial encounter
CPT/HCPCS: 73130; 99283

== ENCOUNTER 2023-07-08 21:11 | Emergency (ER) | payer OTHER, SELFPAY ==
--- NOTE | ~2023-07-08 | XR_ITS ---
EXAMINATION: XR chest 1V portable DATE: 07/08/2023 21:57 INDICATION: Rest pain TECHNIQUE: frontal and lateral views of the chest were obtained. COMPARISON: Chest radiograph and CT dated 09/09/2022 FINDINGS: The lungs remain clear with no focal airspace opacities, pulmonary edema, pleural effusion or pneumot horax. The cardiomediastinal silhouette is normal. Visualized bones and soft tissues are unremarkable . IMPRESSION: 1. No acute cardiopulmonary disease. Reviewed, dictated and finalized at location A.
[2023-07-08 21:11] VITALS: BP 153/102; PULSE 54; RESP 12; TEMP 36.9; O2SAT 100
[2023-07-08 21:17] VITALS: O2SAT 100
--- NOTE | 2023-07-08 21:31 | ECG_ITS ---
SEE SCANNED COPY FOR CONFIRMED REPORT MTDD
[2023-07-08 21:45] LABS: Basophils Percent Auto 0.6 % (0.2-1.2); Eosinophils Absolute Auto 0.2 K/mm3 (0-0.3); Eosinophils Percent Auto 2.7 % (0-4.4); Hematocrit 41.8 % (42.0-52.0); Hemoglobin 14.7 g/dL (14.0-18.0); Immature Granulocyte Absolute 0.01 K/mm3 (0.00-0.031); Immature Granulocyte Percent A 0.1 % (0-0.5); Lymphocytes Absolute Auto 2.85 K/mm3 (0.9-3.2); Lymphocytes Percent Auto 40.5 % (18.3-44.2); Mean Corpuscular HGB Conc 35.2 g/dl (32-36); Mean Corpuscular Hemoglobin 28.7 pg (26-34); Mean Corpuscular Volume 81.5 fl (80-100); Mean Platelet Volume 10.1 fl (7.4-10.4); Monocytes Absolute Auto 0.6 K/mm3 (0.1-0.6); Monocytes Percent Auto 8.5 % (2.6-8.5); Neutrophils Absolute Auto 3.3 K/mm3 (1.3-6.7); Neutrophils Percent Auto 47.6 % (45.5-73.1); Platelet Count Result 263 k/mm3 (150-375); Red Blood Count 5.13 M/mm3 (4.6-6.20); Red Cell Distribution Width 13.1 % (11.5-14.5)
[2023-07-08 21:55] LABS: Alanine Aminotransferase 25 U/L (6-50); Albumin Level 4.5 g/dL (3.5-5.1); Alkaline Phosphatase 80 U/L (38-126); Anion Gap 7 mmol/L (4-12); Aspartate Amino Transferase 29 U/L (17-59); Bilirubin,Total 0.9 mg/dL (0.2-1.3); Blood Urea Nitrogen 10 mg/dL (9-20); Carbon Dioxide 23 mmol/L (22-30); Chloride 109 mmol/L (98-107); Estimated CRCL calculation 118 ml/min; Estimated Glomerular Filt Rate > 60; Glucose 109 mg/dL (65-110); Potassium 3.7 mmol/L (3.4-5.0); Sodium 139 mmol/L (137-145)
[2023-07-08 22:06] LABS: Troponin I < 0.012 ng/mL (0.000-0.034)
--- NOTE | 2023-07-08 22:35 | ED.CHESTPAIN ---
HPI - Chest Pain General Chief Complaint: Chest Pain Stated Complaint: chest pain Time Seen by Provider: 07/08/23 21:21 History of Present Illness HPI narrative: Patient patient presents here with some chest discomfort, he had been going up the stairs and got out of breath and felt sweaty, he states that over the last few days he has not been feeling very well, he has been nauseous and tired. Has not really been eating much. Now that he is here he actually feels much better and is no longer having chest pain. 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 He states that back then he had been smoking cigarettes and using methamphetamines. Related Data Allergies Allergy/AdvReac Type Severity Reaction Status Date / Time No Known Drug Allergies Allergy Other Verified 05/12/23 22:42 Review of Systems Review of Systems: All systems reviewed & are unremarkable except as noted in HPI and below PMFSH Past Medical History Medical History (Updated 07/09/23 @ 01:01 by Melita Cummings MD) Bradycardia Hand fracture History of cardiac monitoring Surgical History Surgical History History of cardiac catheterization Social History Social History Smoking packs per day: 0.5 Smoking cigarettes per day: 10.0 Years smoked: 22 Smoking pack-years: 11.00 Smoking status: Former smoker Tobacco type: cigarettes Second hand tobacco smoke exposure: Yes Alcohol intake: never Gender identity (if verbalized by the patient): Male Exam Narrative: EXAMINATION OF ORGAN SYSTEMS/BODY AREAS: Constitutional: Vital signs per nursing GENERAL:[No acute distress, non-toxic appearing.] HEAD: Normal with no signs of head trauma. EYES: EOMI, conjunctiva normal ENT: Hearing grossly intact LUNGS: Nonlabored breathing. HEART: [Regular rate and rhythm] ABD: [Soft], [nontender to palpation] EXT: Normal range of motion SKIN: [No rashes or lesions.] NEURO: [Alert and oriented x 3. No gross focal sensory or strength deficits.] PSYCH: Normal affect Course Vital Signs Vital signs: Vital Signs Temperature 98.5 F 07/08/23 21:11 Pulse Rate 54 L 07/08/23 21:11 Respiratory Rate 12 07/08/23 21:11 Blood Pressure 153/102 H 07/08/23 21:11 Pulse Oximetry 100 07/08/23 21:11 Oxygen Delivery Room Air 07/08/23 21:11 Temperature 98.5 F 07/08/23 21:11 Pulse Rate 56 L 07/08/23 23:02 Respiratory Rate 19 07/08/23 23:02 Blood Pressure 135/93 H 07/08/23 23:02 Pulse Oximetry 98 07/08/23 23:02 Oxygen Delivery Room Air 07/08/23 21:17 MDM - Chest Pain MDM Narrative Medical decision making narrative: ED COURSE AND MEDICAL DECISION MAKINM presenting with chest pain. He has cardiac history from when he was smoking using methamphetamines but has quit everything now. EKG done in triage negative for acute ischemic changes. Cardiac workup is initiated. EKG: Performed in triage and interpreted by me. Sinus rhythm. Rate 54. Normal axis. [place] normal. QRS duration normal. QTc normal. No pathologic Q waves. No ST segment elevation or depression to suggest acute ischemia. No RV strain pattern. HEART score is 0 with no acute ischemic changes on EKG and negative troponin making ACS unlikely. Negative PERC making PE unlikely. Presentation notN consistent with dissection or aneurysm without radiation of pain or pulse deficits. CXR negative for mediastinal widening. No abdominal pain or signs of sepsis that would be concerning for esophageal perforation or mediastinitis. No cardiomegaly or JVD to suggest pericardial effusion/tamponade. HEART Score: [0]. He was observed here for several hours, repeat troponin was also negative, patient continues to be well-appearing and denying current symptoms from arrival to ER. On
[2023-07-08 23:02] VITALS: BP 135/93; PULSE 56; RESP 19; O2SAT 98
[2023-07-09 00:48] LABS: Troponin I < 0.012 ng/mL (0.000-0.034)
== END 2023-07-09 01:18 | disposition home or self-care (01) ==
PROVIDERS: Emergency Provider Emergency Medicine; PCP Internal Medicine
DX: R07.89 Other chest pain (principal); Z87.891 Personal history of nicotine dependence; R00.1 Bradycardia, unspecified
CPT/HCPCS: 36415; 71045; 80053; 84484; 85025; 93005; 99284

== ENCOUNTER 2023-12-08 15:28 | Emergency (ER) | payer OTHER, SELFPAY ==
--- NOTE | ~2023-12-08 | XR_ITS ---
EXAMINATION: XR chest 2V 12/08/2023 16:17 INDICATION: Hemoptysis PROCEDURE: 2 view chest COMPARISON: Comparison to multiple prior studies sequentially, with oldest reviewed study dated 10/09. FINDINGS: The lungs are clear. The lungs are hyperinflated which is consistent with, but not diagnost ic of chronic obstructive pulmonary disease. The cardiomediastinal silhouette is within normal limits . There are no pleural effusions. There is no pneumothorax suspected. IMPRESSION: 1: NO ACUTE CARDIOPULMONARY DISEASE. Reviewed, dictated and finalized at location B.
--- NOTE | ~2023-12-08 | CT_ITS ---
EXAMINATION: CT abdomen pelvis w con DATE: 12/08/2023 17:08 INDICATION: Left lower quadrant abdominal pain TECHNIQUE: Computed tomography (CT) of the abdomen and pelvis was performed with 100 mL Omnipaque-350 intravenous contrast. Automated exposure control and iterative reconstruction technique were employe d. The dose-length product was 434.49 mGy-cm. COMPARISON: None FINDINGS: Lung bases are clear. Heart size is normal. No pericardial or pleural effusion. Small sliding-type hi atal hernia. 7 mm hepatic cyst. Gallbladder, spleen, pancreas, bilateral adrenal glands and right kid lux are normal. 4 mm left renal cyst. Bowels including the appendix are normal. Bladder is normal. No free intraperitoneal gas or fluid. No pathologically enlarged abdominal or pelvic lymphadenopathy. M ild lumbar dextrocurvature. IMPRESSION: 1. No acute intra-abdominal/pelvic process. 2. Small sliding-type hiatal hernia. Reviewed, dictated and finalized at location A.
[2023-12-08 15:53] VITALS: BP 151/98; PULSE 62; RESP 16; TEMP 36.3; O2SAT 100
[2023-12-08 16:03] VITALS: BP 129/92; PULSE 60; RESP 16; O2SAT 100
[2023-12-08 16:04] VITALS: RESP 16; O2SAT 100
[2023-12-08 16:17] LABS: Basophils Percent Auto 0.5 % (0.2-1.2); Eosinophils Absolute Auto 0.2 K/mm3 (0-0.3); Eosinophils Percent Auto 2.2 % (0-4.4); Hemoglobin 15.8 g/dL (14.0-18.0); Immature Granulocyte Absolute 0.02 K/mm3 (0.00-0.031); Immature Granulocyte Percent A 0.3 % (0-0.5); Lymphocytes Absolute Auto 2.21 K/mm3 (0.9-3.2); Lymphocytes Percent Auto 30.1 % (18.3-44.2); Mean Corpuscular HGB Conc 32.9 g/dl (32-36); Mean Corpuscular Hemoglobin 28.8 pg (26-34); Mean Corpuscular Volume 87.6 fl (80-100); Mean Platelet Volume 10.4 fl (7.4-10.4); Monocytes Absolute Auto 0.6 K/mm3 (0.1-0.6); Monocytes Percent Auto 7.8 % (2.6-8.5); Neutrophils Absolute Auto 4.3 K/mm3 (1.3-6.7); Neutrophils Percent Auto 59.1 % (45.5-73.1); Platelet Count Result 290 k/mm3 (150-375); Red Blood Count 5.48 M/mm3 (4.6-6.20); Red Cell Distribution Width 12.9 % (11.5-14.5); White Blood Count 7.3 K/mm3 (4.5-10.0)
[2023-12-08 16:29] LABS: Prothrombin Time 13.4 Seconds (11.1-14.7)
[2023-12-08 16:30] LABS: Partial Thromboplastin Time 23.5 Seconds (22.3-36.8)
[2023-12-08 16:32] LABS: Alanine Aminotransferase 36 U/L (6-50); Albumin Level 4.6 g/dL (3.5-5.1); Alkaline Phosphatase 76 U/L (38-126); Anion Gap 6 mmol/L (4-12); Aspartate Amino Transferase 36 U/L (17-59); Bilirubin,Total 1.7 mg/dL (0.2-1.3); Blood Urea Nitrogen 9 mg/dL (9-20); Carbon Dioxide 28 mmol/L (22-30); Chloride 104 mmol/L (98-107); Estimated CRCL calculation 104 ml/min; Estimated Glomerular Filt Rate > 60; Glucose 95 mg/dL (65-110); Potassium 4.6 mmol/L (3.4-5.0); Sodium 138 mmol/L (137-145)
[2023-12-08] MEDS: SODIUM CHLORIDE 0.9% IV 1,000 ML 999 ML IV CONT (16:48)
[2023-12-08] MEDS: PANTOPRAZOLE SODIUM IV 40 MG VIAL IV PUSH (16:48)
[2023-12-08 18:34] VITALS: BP 118/86; PULSE 54; RESP 16; O2SAT 98
--- NOTE | 2023-12-08 18:37 | ED.GENADULT ---
HPI - General Adult General Chief complaint: Unspecified Stated complaint: L abd pain, coughing & throwing up blood Time Seen by Provider: 12/08/23 16:21 Source: patient Mode of arrival: ambulatory Limitations: no limitations History of Present Illness HPI narrative: 33-year-old with a history of CVA here with a complaint of 4 day history of nausea and vomiting. Patient states that he vomited blood. Patient states that he was in the ER yesterday however as the wait time was too long he decided to go home. He also complains of occasional left lower abdominal pain. He is not on any anticoagulant. He denies being lightheaded or dizzy. No previous history of peptic ulcer disease Onset (ago): day(s) (4) Relieving factors: none Exacerbating factors: none Associated symptoms: denies other symptoms Related Data Allergies Allergy/AdvReac Type Severity Reaction Status Date / Time No Known Drug Allergies Allergy Other Verified 12/08/23 15:29 Review of Systems Review of Systems: All systems reviewed & are unremarkable except as noted in HPI and below Constitutional: Constitutional: Reports no additional constitutional complaints Eyes: Eyes: Reports no additional eye complaints ENT: Reports system reviewed and no additional complaints, except as documented Cardiovascular: Cardiovascular: Reports no additional cardiovascular complaints Respiratory: Respiratory: Reports no additional respiratory complaints Gastrointestinal: Gastrointestinal: Reports as per HPI Musculoskeletal: Musculoskeletal: Reports no additional musculoskeletal complaints Neurologic: Reports system reviewed and no additional complaints, except as documented PMFSH Past Medical History Medical History (Updated 12/08/23 @ 18:42 by Rojas Berg MD) Bradycardia Hand fracture History of cardiac monitoring Surgical History Surgical History History of cardiac catheterization Social History Social History Smoking packs per day: 0.5 Smoking cigarettes per day: 10.0 Years smoked: 22 Smoking pack-years: 11.00 Smoking status: Former smoker Tobacco type: cigarettes Second hand tobacco smoke exposure: Yes Alcohol intake: never Gender identity (if verbalized by the patient): Male Exam Narrative: GENERAL: Well-appearing, well-nourished, and in no acute distress. HEAD: Normocephalic, atraumatic. EYES: PERRLA and EOMI. ENT: Nares clear, no rhinorrhea or epistaxis. Mucous membranes moist. NECK: Supple. CHEST: Clear to auscultation. No respiratory distress. HEART: Regular rate and rhythm. No murmur heard. Normal peripheral pulses. ABDOMEN: Soft, nontender, nondistended, normal active bowel sounds. EXTREMITIES: Normal range of motion. No edema. SKIN: Warm, dry, no rash. NEURO: No focal deficits. Alert and oriented x3. PSYCH: Normal mood and affect. Course Course Emergency Course: Patient had no further episodes of nausea and vomiting his exam is unremarkable I did inform him about his lab work and CT findings. I discussed with Dr. Pedraza patient can be followed up in the office. Patient feels comfortable going home. Vital Signs Vital signs: Vital Signs Temperature 36.3 C L 12/08/23 15:53 Pulse Rate 62 12/08/23 15:53 Respiratory Rate 16 12/08/23 15:53 Blood Pressure 151/98 H 12/08/23 15:53 Pulse Oximetry 100 12/08/23 15:53 Oxygen Delivery Room Air 12/08/23 15:53 Temperature 36.3 C L 12/08/23 15:53 Pulse Rate 54 L 12/08/23 18:34 Respiratory Rate 16 12/08/23 18:34 Blood Pressure 118/86 12/08/23 18:34 Pulse Oximetry 98 12/08/23 18:34 Oxygen Delivery Room Air 12/08/23 15:53 Medical Decision Making MDM Narrative Medical decision making narrative: 33-year-old with history of CVA here with a 4 day history of nausea and vomiting with hematemesis. His exam is benign will do abdominal workup in while give him IV Protonix. Differential Diagnosis Differential Diagnosis: Elis-Stearns tear, gastritis, peptic ulcer disease Vital Signs Vital Signs: Vital Signs Temperature 36.3 C L 12/08/23 15:53 Pulse Rate 62 12/08/23 15:53 Respiratory Rate 16 12/08/23 15:53 Blood Pressure 151/98 H 12/08/23 15:53 Pulse Oximetry 100 12/08/23 15:53 Oxygen Delivery Room Air 12/08/23 15:53 Temperature 36.3 C L 12/08/23 15:53 Pulse Rate 54 L 12/08/23 18:34 Respiratory Rate 16 12/08/23 18:34 Blood Pressure 118/86 12/08/23 18:34 Pulse Oximetry 98 12/08/23 18:34 Oxygen Delivery Room Air 12/08/23 15:53 Lab Data 12/08/23 16:07 12/08/23 16:07 Labs: Lab Results 12/08/23 Range/Units 16:07 WBC 7.3 (4.5-10.0) K/mm3 RBC 5.48 (4.6-6.20) M/mm3 Hgb 15.8 (14.0-18.0) g/dL Hct 48.0 (42.0-52.0) % MCV 87.6 (80-100) fl MCH 28.8 (26-34) pg MCHC 32.9 (32-36) g/dl RDW 12.9 (11.5-14.5) % Plt Count 290 (150-375) k/mm3 MPV 10.4 (7.4-10.4) fl Immature Gran % (Auto) 0.3 (0-0.5) % Neut % (Auto) 59.1 (45.5-73.1) % Lymph % (Auto) 30.1 (18.3-44.2) % [place] % (Auto) 7.8 (2.6-8.5) % Eos % (Auto) 2.2 (0-4.4) % Baso % (Auto) 0.5 (0.2-1.2) % Lymph # (Auto) 2.21 (0.9-3.2) K/mm3 [place] # (Auto) 0.6 (0.1-0.6) K/mm3 Eos # (Auto) 0.2 (0-0.3) K/mm3 Baso # (Auto) 0.0 (0.0-0.1) K/mm3 Abs Immat Gran (auto) 0.02 (0.00-0.031) K/mm3 Absolute Neuts (auto) 4.3 (1.3-6.7) K/mm3 Absolute Nucleated RBC 0.000 (0.0-0.012) K/mm3 Nucleated RBC % 0.0 (0.0-0.2) % PT 13.4 (11.1-14.7) Seconds INR 1.0 APTT 23.5 (22.3-36.8) Seconds Sodium 138 (137-145) mmol/L Potassium 4.6 (3.4-5.0) mmol/L Chloride 104 (98-107) mmol/L Carbon Dioxide 28 (22-30) mmol/L Anion Gap 6 (4-12) mmol/L BUN 9 (9-20) mg/dL Creatinine 1.00 (0.7-1.3) mg/dL Estim Creat Clear Calc 104 ml/min Estimated GFR > 60 (59 - ) Glucose 95 (65-110) mg/dL Calcium 9.0 (8.4-10.2) mg/dL Total Bilirubin 1.7 H (0.2-1.3) mg/dL AST 36 (17-59) U/L ALT 36 (6-50) U/L Alkaline Phosphatase 76 (38-126) U/L Total Protein 8.0 (6.3-8.2) g/dL Albumin 4.6 (3.5-5.1) g/dL Blood Type O Positive Antibody Screen Negative Imaging Data Radiologist's impression: ITS Impressions Chest X-Ray 12/08/23 16:18 IMPRESSION: 1: NO ACUTE CARDIOPULMONARY DISEASE. Abdomen/Pelvis CT 12/08/23 17:26 IMPRESSION: 1. No acute intra-abdominal/pelvic process. 2. Small sliding-type hiatal hernia. Discharge Plan Discharge Clinical Impression: Gastritis Patient Disposition: Home, Self-Care Condition: Stable Instructions: Gastritis (ED) Prescriptions: New esomeprazole magnesium [Nexium 24HR] 20 mg capsule,delayed release(DR/EC) 20 mg PO DAILY Qty: 14 0RF ondansetron 4 mg tablet,disintegrating 4 mg PO Q6-8H PRN (Reason: nausea and vomiting) Qty: 14 0RF No Action azithromycin [Zithromax Z-Conner] 250 mg tablet See Rx Instructions PO .COMPLEX Qty: 6 0RF Rx Instructions: For 250 mg dose pack: take 500 mg today (day 1), then 250 mg for 4 days (days 2-5) cefdinir 300 mg capsule 300 mg PO Q12H 10 Days Qty: 20 0RF benzonatate 200 mg capsule 200 mg PO TID PRN (Reason: cough) Qty: 21 0RF Follow-up/Referrals: Toro,Dre Monk MD [Primary Care Provider] - Steven Felipe MD [Physician] - Time of Disposition: 18:43
[2023-12-08 18:55] VITALS: BP 127/87; PULSE 52; RESP 19; O2SAT 100
== END 2023-12-08 18:56 | disposition home or self-care (01) ==
PROVIDERS: Emergency Provider Family Medicine; PCP Internal Medicine
DX: K29.70 Gastritis, unspecified, without bleeding (principal); Z86.73 Personal history of transient ischemic attack (TIA), and cerebral infarction without residual deficits; Z87.891 Personal history of nicotine dependence; K44.9 Diaphragmatic hernia without obstruction or gangrene
CPT/HCPCS: 36415; 71046; 74177; 80053; 85025; 85610; 85730; 86850; 86900; 86901; 96361; 96374; 99284; J2470; J7030; Q9967

== ENCOUNTER 2024-05-29 21:08 | Emergency (ER) | payer OTHER, SELFPAY ==
--- NOTE | ~2024-05-29 | XR_ITS ---
XR foot LT min 3V Ordering provider: Armaan Manuel MD History: . injury,pain ROLLED FOOT YESTERDAY . Comparison: None. FINDINGS: BONES: No acute fracture or dislocation. Hammertoes are noted. JOINT SPACES: Normal. No tarsal coalition. SOFT TISSUES: Normal. IMPRESSION: No acute osseous abnormality left foot. Reviewed, dictated and finalized at location A.
--- OUTSIDE RECORDS SUMMARY | 2024-05-29 21:10 | XMS_ITS | Referral Summary ---
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 These episodes are rather frequent and are occurring several times per week. I reviewed the available diagnostic testing and previous evaluation: - EP study in 2014, results indeterminate (I will obtain) - ILR, in situ for 3 years, apparently without conclusive results - Echocardiography, showing normal LV function He has sinus bradycardia that is be fitting his age and level of fitness, and this does not represent sinus node dysfunction. I do not believe that the patient had a stress test recently, and given his risk factors and recent ER presentation with chest discomfort, repeating an ischemic evaluation may be helpful. I will leave this to the discretion of his physical therapy professor, Dr. Austin, though I can order at [facility] if desired. I do not have the results of his complete neurological evaluation, though the patient does tell me that he had an EEG in the past, and a CT scan in August 2019 that showed a possible stroke. I did recommend a brief period of outpatient event recording, which may be useful given the increased frequency with which the patient is experiencing events as of recent. I will order a 14 day MCOT. I do believe it is unlikely that we will find in an arrhythmogenic etiology given the thoroughness with which the patient's previous electrophysiology evaluation has been conducted over the past 5 years. Social History Tobacco Use Types Packs/Day Years Used Date Smoking Tobacco: Every Day Smokeless Tobacco: Current Personal Safety Answer Date Recorded Getting School Help Needed Not on file 04/16 Sex and Gender Information Value Date Recorded Sex Assigned at Not on file Legal Sex Male 10:12 AM CDT Gender Identity Not on file Sexual Orientation Not on file Last Filed Vital Signs Vital Sign Reading Time Taken Comments Blood Pressure 160/96 01/14/2022 3:27 PM [employer] Pulse 54 01/14/2022 3:27 PM [employer] Temperature 36.5 C (97.7 F) 01/14/2022 3:27 PM [employer] Respiratory Rate 18 01/14/2022 3:27 PM [employer] Oxygen Saturation 98% 01/14/2022 3:27 PM [employer] Inhaled Oxygen Concentration - - Weight 83.3 kg (183 lb 10.3 oz) 01/14/2022 3:27 PM [employer] Height 188 cm (6' 2 ) 01/14/2022 3:27 PM [employer] Body Mass Index 23.58 01/14/2022 3:27 PM [employer] Plan of Treatment Not on file Insurance [facility] Member Subscriber Plan / Payer (Ef fective 2019-Present) Name:Kortney Huttonin Relation to Subscriber:Self Name:Kortney Htutonin Payer ID:[id number] (NAIC) Type:MEDICAID RISK OTHER Address: [place] [id number] [facility] Care Teams Assembly Line Machine Operator Relationship Specialty Start Date End Date Referring, Unknown, PCP - General Family Medicine 01/14/22
--- OUTSIDE RECORDS SUMMARY | 2024-05-29 21:10 | XMS_ITS | Data Portability ---
Author Organization [facility] QUINNRamila Address [address] [place] [address] Assessment No assessment recorded. Plan of Treatment Reminders Order Date Submit Date Provider Last Modified By Organization Details Last Modified Time Details Appointments None recorded . Lab None recorded . Referral podiatri st referral 2021 022 [facility] Not available 17:30:20 orthoped ic referral - Please call patient to schedule appt. Thank you 2019 020 [facility], [address], [place], [address], 0 11:27:05 Procedures None recorded . Surgeries None recorded . Imaging XR, knee, 3 view 2019 020 [facility]), [address], [place], [address], 0 17:48:44 Medication Orders ketorola c 10 mg tablet 2021 022 [facility] #02760, [address], [place], [place], [id number], 2 15:54:07 baclofen 20 mg tablet 2021 022 [facility] #24825, [address], [place], [place], [id number], 2 15:54:09 lidocain e 4 % topical cream 2021 022 [facility] #95693, [address], [place], [place], [id number], 2 15:54:08 ondanset benja 4 mg disinteg rating tablet 2020 021 [facility] #56593, [address] [place], [address], 1 12:02:23 omeprazo le 40 mg capsule, delayed release 2020 021 [facility] #28690, [address] [place], [address], 1 12:02:20 Carafate 1 gram tablet 2020 021 [facility] #52092, [address] [place], [place], [id number], 1 12:02:26 Zithroma x Z-Conner 250 mg tablet 2019 020 [facility] #97937, [address] , [place], [place], [id number], 1 12:02:34 meloxica m 7.5 mg tablet 2019 020 [facility] #97308, [address] [place], [place], [id number], 1 12:02:11 baclofen 20 mg tablet 2019 020 [facility] #24367, [address] , [place], [place], [id number], 1 12:01:14 Patient TargetsNo targets recorded. Patient Instructions Encounter Date Encounter Id Patient Instructions Last Modified By Organization Details Last Modified Time 12/11/2019 [id number] sore throat: car e instructions [facility] Not available 12/11/2019 16:04:10 04/03/2020 [id number] nausea and vomiting: care instructions [facility] Not available 04/03/2020 17:28:23 Reason for Referral Orthopedic Referral for Pain in right knee Please call patient to schedule appt. 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 [facility] (Imaging) [address] [place], [address], 10/30/2019 11:42:25 11/15/19 20 11/15/2019 MRI, knee, w/o contr ast No observ ation record ed. [facility] (Imaging) [address] [place], [address], 11/16/2019 09:20:14 06/27/19 21 06/26/2020 trans -thor acic echoc ardio gram (TTE) (PROC ) No observ ation record ed. [address], [address], 06/30/2020 18:29:59 07/23/19 21 07/21/2020 elect roenc ephal ogram (EEG) ; inclu ding recor ding awake and drows y (PROC ) No observ ation record ed. [address], [place], [address], 07/23/2020 10:03:43 08/01/19 21 07/31/2020 XR, hand No observ ation record ed. [address], [place], [address], 07/31/2020 15:05:34 10/14/19 21 10/12/2020 MRI, cervi johanny spine , w/o contr ast No observ ation record ed. [address], [place], [address], 10/13/2020 17:18:50 11/13/19 21 11/12/2020 CT, brain , w/o contr ast No observ ation record ed. [address], [place], [address], 11/12/2020 17:16:06 11/13/19 21 11/12/2020 imagi ng/di agnos tic resul t No observ ation record ed. [address] [address], [place], [address], 11/12/2020 17:11:30 12/14/19 21 12/12/2020 elect roenc ephal ogram No observ ation record ed. [address] [address], [place], [address], 12/15/2020 10:47:50 03/02/19 22 03/02/2021 XR, ankle No observ ation record ed. [address] [place], [address], 03/03/2021 11:11:55 03/02/19 22 03/02/2021 XR, foot No observ ation record ed. [address] [place], [address], 03/03/2021 11:12:10 04/29/19 22 04/28/2021 XR, chest No observ ation record ed. [address] [address], [place], [address], 05/01/2021 18:44:15 07/09/19 22 07/08/2021 imagi ng/di agnos tic resul t No observ ation record ed. [facility] [address] [place], [address], 07/08/2021 18:04:54 08/03/19 22 08/02/2021 XR, ankle No observ ation record ed. [address], [address], 08/18/2021 11:56:26 08/04/19 22 08/02/2021 XR, foot No observ ation record ed. [address], [address], 08/18/2021 11:56:41 10/25/19 22 10/24/2021 CT, head, w/o contr ast No observ ation record ed. [facility] [address] [place], [address], 10/26/2021 15:36:23 09/10/19 23 09/09/2022 CT, angio gram, chest , w/ contr ast No observ ation record ed. [address] [address], [place], [address], 09/15/2022 10:05:04 10/12/19 23 10/11/2022 XR, ankle No observ ation record ed. [address], [address], 10/11/2022 16:01:18 10/12/19 23 10/11/2022 XR, foot No observ ation record ed. [address], [address], 10/11/2022 16:01:36 12/01/19 23 11/30/2022 XR, chest No observ ation record ed. [facility] [address] [facility], [place], [address], 11/30/2022 17:51:06 01/09/20 23 01/08/2023 XR, shoul chrissy, 1 view No observ ation record ed. [facility] [address] [place], [address], 01/19/2023 10:06:31 05/12/19 24 05/12/2023 XR, hand No observ ation record ed. [address], [place], [address], 05/26/2023 12:23:45 07/08/19 24 07/08/2023 XR, chest No observ ation record ed. [address], [place], [address], 07/12/2023 16:57:35 12/08/19 24 12/08/2023 XR, chest , 2 view No observ ation record ed. [address], [place], [address], 12/14/2023 02:25:52 12/08/19 24 12/08/2023 CT, abdom en + pelvi s, w/ contr ast No observ ation record ed. [address], [place], [address], 12/15/2023 12:30:41 Result Notes None recorded. Problems Name Problem SNOMED Code Status Onset Date Resolution Date Notes Provider Name and Address Organization Details Recorded Time Seizure 11249828 Active 018 Not Available [facility] 19:04:18 Nausea and vomiting 92209479 Active 020 Not Available [facility] 19:04:18 Muscle weakness 70698957 Active 020 Not Available [facility] 19:04:18 Problem Notes None recorded. Procedures Surgical History Date Name Laterality Status Provider Name and Address Organization Details Recorded Time Heart Surgery completed Wilbert Huang MA [place] - [facility] 12/08/2015 12:09:22 Imaging Results Imaging Date Name Status LastModified by Organization Details LastModified Time 10/29/2019 XR, knee, 3 view completed [facility] (Imaging) [address] [place], [address], 10/30/2019 11:42:25 11/15/2019 MRI, knee, w/o contrast completed [facility] (Imaging) [address] [place], [address], 11/16/2019 09:20:14 06/26/2020 trans-thoracic echocardiogram (TTE) (PROC) completed [address], [address], 06/30/2020 18:29:59 07/21/2020 electroencephalogram (EEG); including recording awake and drowsy (PROC) completed [address], [address], 07/23/2020 10:03:43 07/31/2020 XR, hand completed [address], [address], 07/31/2020 15:05:34 10/12/2020 MRI, cervical spine, w/o contrast completed [address], [address], 10/13/2020 17:18:50 11/12/2020 CT, brain, w/o contrast completed [address], [address], 11/12/2020 17:16:06 11/12/2020 imaging/diagnostic result completed [address], [address], 11/12/2020 17:11:30 12/12/2020 electroencephalogram completed [address], [address], 12/15/2020 10:47:50 03/02/2021 XR, ankle completed [address] [place], [address], 03/03/2021 11:11:55 03/02/2021 XR, foot completed [address] [place], [address], 03/03/2021 11:12:10 04/28/2021 XR, chest completed [address], [address], 05/01/2021 18:44:15 07/08/2021 imaging/diagnostic result completed [facility] [address] [place], [address], 07/08/2021 18:04:54 08/02/2021 XR, ankle completed [address], [address], 08/18/2021 11:56:26 08/02/2021 XR, foot completed [address], [address], 08/18/2021 11:56:41 10/24/2021 CT, head, w/o contrast completed [facility] [address] [place], [address], 10/26/2021 15:36:23 09/09/2022 CT, angiogram, chest , w/ contrast completed [address], [address], 09/15/2022 10:05:04 10/11/2022 XR, ankle completed [address], [address], 10/11/2022 16:01:18 10/11/2022 XR, foot completed [email or web address] [place] [address], [address], 10/11/2022 16:01:36 11/30/2022 XR, chest completed [facility] [address] [place], [address], 11/30/2022 17:51:06 01/08/2023 XR, shoulder, 1 view completed [facility] [address] [place], [address], 01/19/2023 10:06:31 05/12/2023 XR, hand completed [address], [address], 05/26/2023 12:23:45 07/08/2023 XR, chest completed [address], [address], 07/12/2023 16:57:35 12/08/2023 XR, chest, 2 view completed [address], [address], 12/14/2023 02:25:52 12/08/2023 CT, abdomen + pelvis , w/ contrast completed [address], [address], 12/15/2023 12:30:41 Procedure Notes None recorded. Medical Equipment None Reported. Allergies No known drug allergies Medications Name Sig Start Date Stop Date Status Note LastModified by Organization Details LastModified Time cyclobenzap rine 10 mg tablet TAKE 1 TABLET BY MOUTH THREE TIMES DAILY NEEDED FOR MUSCLE SPASM active Not Available Not Available No t Available amoxicillin 500 mg capsule TAKE 1 CAPSULE BY MOUTH TWICE DAILY active Not Available Not Available No t Available cetirizine 10 mg tablet 07/29 completed Not Available Not Available Not Available ibuprofen 800 mg tablet TAKE 1 TABLET BY MOUTH EVERY 8 HOURS WITH FOOD NEEDED active Not Available Not Available No t Available levetiracet am 500 mg tablet Take 1 tablet twice a day by oral route as directed for 30 days. 07/29 completed Not Available Not Available Not Available sucralfate 1 gram tablet TAKE 1 TABLET BY MOUTH FOUR TIMES DAILY FOR 3 DAYS DIRECTED 07/29 completed Not Available Not Available Not Available prednisone 20 mg tablet active Not Available Not Available Not Available lidocaine 4 % topical cream Apply 1 applicati on 4 times a day by topical route as directed for 20 days. 2021 active Not Available Not Available Not Avai lable Zithromax Z-Conner 250 mg tablet TAKE 2 TABLETS (500 MG) BY ORAL ROUTE ONCE DAILY FOR 1 DAY THEN 1 TABLET (250 MG) BY ORAL ROUTE ONCE DAILY FOR 4 DAYS 07/29 completed Not Available Not Available Not Available bacitracin zinc 500 unit/gram topical ointment 05/25 completed Not Available Not Available Not Available sulfamethox azole 800 mg-trimetho prim 160 mg tablet Take 1 tablet every 12 hours by oral route with meals for 10 days. 07/29 completed Not Available Not Available Not Available omeprazole 40 mg capsule,del ayed release TAKE 1 CAPSULE BY MOUTH EVERY DAY BEFORE MEALS FOR 30 DAYS 07/29 completed Not Available Not Available Not Available tramadol 50 mg tablet 07/29 completed Not Available Not Available Not Available acetaminoph en 500 mg tablet 07/29 completed Not Available Not Available Not Available baclofen 20 mg tablet TAKE 1 TABLET BY MOUTH THREE TIMES DAILY DIRECTED active Not Available Not Available No t Available ketorolac 10 mg tablet 2021 active Not Available Not Available Not Avai lable meloxicam 7.5 mg tablet TAKE 1 TABLET BY MOUTH EVERY DAY AFTER A MEAL 07/29 completed Not Available Not Available Not Available oxycodone-a cetaminophe n 5 mg-325 mg tablet TAKE 1 TABLET BY MOUTH EVERY 6 HOURS FOR 3 DAYS NEEDED FOR PAIN active Not Available Not Available No t Available pantoprazol e 40 mg tablet,keri yed release 05/25 completed Not Available Not Available Not Available neomycin-po lymyxin-dex ameth 3.5 mg/mL-10,00 0 unit/mL-0.1 % eye drops INSTILL 1 DROP INTO THE RIGHT EYE FOUR TIMES DAILY 07/29 completed Not Available Not Available Not Available warfarin 5 mg tablet 05/25 completed Not Available Not Available Not Available ibuprofen 400 mg tablet TAKE 1 TABLET BY MOUTH THREE TIMES DAILY FOR 10 DAYS NEEDED FOR FEVER OR PAIN active Not Available Not Available No t Available ibuprofen 600 mg tablet 07/29 completed Not Available Not Available Not Available ondansetron 4 mg disintegrat ing tablet Place 2 tablets twice a day by transling ual route as needed for 3 days. 07/29 completed Not Available Not Available Not Available naproxen 500 mg tablet 01/24 completed Not Available Not Available Not Available amoxicillin 875 mg-potassiu m clavulanate 125 mg tablet TAKE 1 TABLET BY MOUTH EVERY 12 HOURS FOR 10 DAYS active Not Available Not Available No t Available midodrine 10 mg tablet 07/29 completed Not Available Not Available Not Available cyclobenzap rine 5 mg tablet 01/24 completed Not Available Not Available Not Available nitrofurant oin monohydrate /macrocryst als 100 mg capsule 01/24 completed Not Available Not Available Not Available Aspir-81 07/29 completed Not Available Not Available Not Available Fluvirin 45 mcg (15 mcg x 3)/0.5 mL intramuscul ar suspension 05/25 completed Not Available Not Available Not Available Vitals Date Recorded Body height Body mass index (BMI) Body weight Oxygen saturation Oxygen saturation in Arterial blood by Pulse oximetry Heart rate Body temperature Systolic blood pressure Diastolic blood pressure Provider Name and Address Organization Details Last Updated DateTime 2 182.25 cm 22.1 kg/m2 40285.2 5 g 96 % 96 % 65 /min 98 [degF] 122 mm[Hg] 76 mm[Hg] Taylor Vitale MA [place] - [facility] 15:01:41 Social History Question Answer Notes LastModified by Organizat ion Details LastModified Time Tobacco Smoking Status Current Every Day Smoker cigarettes Wilbert Huang MA null, [place] - [facility] 12/08/2015 12:09:53 What Is Your Level Of Alcohol Consumption? None Information not available 12/08/2015 Do You Or Have You Ever Used E-cigarettes Or Vape? Never Used Electronic Cigarettes [email or web address] Information not available 01/24/2019 What Was The Date Of Your Most Recent Tobacco Screening? 03/04/2021 Information not available 03/04/2021 How Much Tobacco Do You Smoke? 0.5 PPD Information not available 12/08/2015 On What Date Was Tobacco Cessation Counseling Provided? 03/04/2021 Information not available 03/04/2021 How Many Years Have You Smoked Tobacco? 13 Information not available 12/08/2015 Sex: Unknown Functional Status None recorded. Mental Status None recorded. Family History Nothing Reported. Medical History No medical history recorded. 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 [id number] MD [facility] (Adult Med) [address] [place] [phone] 01/24/2019 10:47:29 01/24/2019 11:58:56 Pain in right knee 7985006328 91280 M25.561 Discussed about MRI which he wants, but insurance might not approve except trying about 6 weeks PT and medication . [id number] MD [facility] (Adult Med) [address] [place] [id number] 06/27/2019 08:45:38 06/28/2019 10:51:45 Muscle weakness 43955850 M62.81 Nausea and vomiting 1693 2000 R11.2 Referred to ED for Xrays and likely IV fluid hydration [id number] MD [facility] (Adult Med) [address] [place] [phone] 07/26/2019 08:19:54 07/27/2019 06:58:52 Seizure disorder 218741766 G40.909 Discussed with patient, will put on anti-seizu re medication and refer to neurology, he agreed, also advised him to go to closer ER any time for any concern, [id number] MD [facility] (Adult Med) [address] [place] [phone] 09/10/2019 15:13:00 09/11/2019 16:12:52 Abscess 161469675 L02.91 [id number] MD [facility] (Adult Med) [address] [place] [phone] 0 10/29/2019 08:15:43 10/30/2019 16:42:11 Pain in right knee 0092705063 58498 M25.561 Discussed about MRI which he wants, but insurance might not approve except trying about 6 weeks PT and medication . [id number] MD [facility] (Adult Med) [address] [place] [phone] 12/11/2019 08:12:24 12/12/2019 09:12:23 Acute pharyngitis 699694837 J02.9 Discussed with patient, he agreed to try z conner., He will keep this office informed. [id number] MD [facility] (Adult Med) [address] [place] [phone] 04/03/2020 12:45:03 04/04/2020 10:37:29 Nausea and vomiting 62621117 R11.2 Discussed with patient. , advised him to go to ER any time for any conern, he agreed. [id number] [facility] [address] [place] [address] 07/29/2020 09:12:57 07/30/2020 11:29:24 Muscle weakness 60168376 M62.81 Resolved since last visit. Currently not on any medication s. Will have office follow up in the near future. [id number] Dre Engel MD [facility] (Adult Med) [address] [place] [phone] 03/04/2021 14:43:26 03/05/2021 09:06:11 Pain of right ankle joint 7659342053 9631366 M25.571 On crutches , injured right ankle, went to ER, negative fracture on x ray , still has pain, old injury on right foot years ago, but no problem before recent accident. Ibuprofen won't work, will try differnet med. and project developer referral he agreed. Health Concerns Section Related Observation LastModified by Organization Detai ls LastModified Time None Recorded Concern Status LastModified by Organization Details LastModified Time None Recorded Advance Directives Directive None Recorded Payers Encounter Date Sequence Insurance Name Policy Number Policy Jaime Covered Member ID Jaime Member ID Guarantor Name 10/29/2019 1 [facility] (MEDICAID HMO) [id number] Tay Anni [id number] Tay Anni 12/11/2019 1 [facility] (MEDICAID HMO) [id number] Tay Anni [id number] Tay Anni 04/03/2020 1 [facility] (MEDICAID HMO) [id number] Tay Anni [id number] Tay Anni 07/29/2020 1 [facility] (MEDICAID HMO) [id number] Tay Anni [id number] Tay Anni 03/04/2021 1 [facility] (MEDICAID HMO) [id number] Tay Anni [id number] Tay Anni Notes Date Note Type Note Provider Name and Address Organization Details Recorded Time 10/29/2019 text/html This is phone visit, due to clemons virus pandemic, he understood and agreed, NKDA, has had right knee pain since stepped in the hole last fall, is sore, will try medications a nd refer to orthopedic , also will order knee x ray, he agreed. Dre Engel MD Attn: Accounting[address] [facility], [place], [address], [facility] 10/29/2019 14:33:19 12/11/2019 text/html This is phone visit, due to clemons virus pandemic, he understood and agreed, NKDA, sore throat, will take Z-conner as ordered. Dre Engel MD Attn: Accounting[address] [facility], [place], [address], [facility] 12/11/2019 16:04:59 04/03/2020 text/html This is phone visit, due to coron virus pandemic, he understood and agreed, this am, woke up with vomiting, sick of stomach.no fever, not a alcohol drinker , NKDA. , he wants to mtry medication first, consider other eugenie later or going to ER , . Dre Engel MD Attn: Accounting[address] [facility], [place], [address], [facility] 04/03/2020 17:28:40 07/29/2020 text/html Phone visit, due to clemons virus pandemic, he understood and agreed, NKDA, asymptomatic now, but his insurance, bro wants him to come in for a check up, He had some phone visit with this office due to clemons virus pandemic, a real face to face office visit was back to 01-24-2019. He agreed, will schedule it. Dre Engel MD Attn: Accounting[address] [facility], [place], [address], [facility] 07/29/2020 12:15:07
--- OUTSIDE RECORDS SUMMARY | 2024-05-29 21:10 | XMS_ITS | Clinical Summary ---
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 Role Phone Unavailable Primary Care Provider Unavailabl e Social History Tobacco Use Types Packs/Day Years Used Date Smoking Tobacco: Never Assessed Sex and Gender Information Value Date Recorded Sex Assigned at Not on file Legal Sex Male 7:52 PM CDT Gender Identity Not on file Sexual Orientation Not on file Plan of Treatment Health Maintenance Due Date Last Done Comments Annual Physical 11/18/1991 Hepatitis C 2006 DTaP, Tdap and Td Vaccines ( 1 - Tdap) 11/18/2007 Hepatitis B Vaccines (1 of 3 - 19+ 3-dose series) 11/18/2007 COVID-19 Vaccine ( - 2023-2 5 season) 2023 HPV Vaccines Aged Out No longer eligi ble based on patient's age to complete this topic Meningococcal B Vaccine Aged Out No l onger eligible based on patient's age to complete this topic Meningococcal Vaccine Aged Out No terrance davis eligible based on patient's age to complete this topic Pneumococcal Vaccine: Pediat rics (0 to 5 Years) and At-Risk Patients (6 to 49 Years) Aged Out No longer eligible b ased on patient's age to complete this topic RSV Immunizations Under 20 Months Aged Out No longer eligible based on patient's age to complete this topic
--- OUTSIDE RECORDS SUMMARY | 2024-05-29 21:10 | XMS_ITS | CONTINUITY OF CARE DOCUMENT ---
Author Name raudel starks Address Unknown Organization [facility] Address [address] [place] [address] Phone [phone] Care Team Providers Care Recoater Name Role Phone Blanka VANEGAS, Sary Unavailable BRADY VANEGAS, ANU Unavailable JACK VANEGAS, SERA Unavailable [phone] PROBLEMS Condition Status Date Provider Notes S/P Bio Loop active Rashmi Mega Other symptoms involving cardiovascular system completed - Sary Moscoso MD Shortness of breath (SOB) active Sary lopez MD AV junctional rhythm active Sary fregoso MD Syncope and collapse active Sary fregoso MD Tobacco abuse active Sary Moscoso MD Chest pain-type to be determined active Sary Moscoso MD Dizziness active Usama Bird Bradycardia sinus active Usama Bird Sinus pause active Usama Bird Atrioventricular (AV) block, 2nd degree active Wally Riley ENCOUNTERS Date Type Provider Location Encounter Diag nosis - In-person encounter Office Visit Sary Moscoso MD [facility] Atrioventricular (AV) block, 2nd degree - In-person encounter Office Visit Sary Moscoso MD [facility] - In-person encounter Office Visit Sary Moscoso MD [facility] - In-person encounter Office Visit Sary Moscoso MD [facility] - In-person encounter Office Visit Sary Moscoso MD [facility] - In-person encounter Office Visit Sary Moscoso MD [facility] - In-person encounter Office Visit Sary Moscoso MD [facility] - In-person encounter Office Visit Justice Carvajal MD [facility] - In-person encounter Office Visit Sary Moscoso MD [facility] DizzinessBradycardia sinusSinus pause - In-person encounter Office Visit Sary Moscoso MD [facility] Chest pain-type to be determined - In-person encounter Office Visit Sary Moscoso MD [facility] Other symptoms involving cardiovascular systemShortness of breath (SOB)AV junctional rhythmSyncope and collapseTobacco abuse VITAL SIGNS Date Observation Value Provider Body Mass Index (Ratio) 24.39 kg/m2 Kai Moscoso MD blood pressure, diastolic 92 mm[Hg] Ann nkLog blood pressure, systolic 135 mm[Hg] Olive kLogic blood pressure, cuff size regular Daryn rret blood pressure, diastolic 92 mm[Hg] Daryn rret blood pressure, systolic 135 mm[Hg] Lg ret oxygen saturation, oximetry 99 % Dio respiratory rate E&M 12 /min Dio pulse rate 61 /min Dio y weight E&M 190 [lb_av] Dio y height E&M 74 [in_i] Dio y Body Mass Index (Ratio) 17.46 kg/m2 Willard Ware blood pressure, cuff size regular Ke rri Gruenejuliánelder blood pressure, diastolic 70 mm[Hg] Ke rri Gruenenfelder blood pressure, systolic 120 mm[Hg] Fidencio ri Gruenenfelder oxygen saturation, oximetry 99 % Theresa Grjazmynenejuliánelder respiratory rate E&M 18 /min Theresa G ruenenfelder pulse rate 48 /min Theresa Grdipeshe lder weight E&M 136 [lb_av] Theresa Grdipeshe lder height E&M 74 [in_i] Theresa Grdipeshe lder blood pressure, cuff size regular Ke rri Elvinnejuliánelder blood pressure, diastolic 79 mm[Hg] Ke rri Gruenejuliánelder blood pressure, systolic 116 mm[Hg] Fidencio ri Elvinnedenniser oxygen saturation, oximetry 97 % Theresa Alainaer respiratory rate E&M 16 /min Theresa G renettaenenfelder pulse rate 57 /min Theresa Grdipeshe lder height E&M 74 [in_i] Theresa Arlenee lder Body Mass Index (Ratio) 16.56 kg/m2 Kai Moscoso MD blood pressure, diastolic 70 mm[Hg] Daryn Limon RN blood pressure, systolic 100 mm[Hg] Scar Limon RN blood pressure, cuff size regular Ke rri Gruenejuliánelder blood pressure, diastolic, standing 80 mm [Hg] Theresa Gruenenfelder blood pressure, systolic, standing 118 mm [Hg] Theresa Gruenenfelder oxygen saturation, oximetry 98 % Theresa Grjazmynenejuliándavier respiratory rate E&M 18 /min Theresa G ruenenfelder pulse rate 67 /min Theresa Hdz er weight E&M 129 [lb_av] Theresa Andreina er height E&M 74 [in_i] Theresa Senalance er Body Mass Index (Ratio) 17.36 kg/m2 Abdiel Bird blood pressure, resting No Cirilo aparna Hillary CHARLENE blood pressure, diastolic, standing 80 mm [Hg] Tawanna Jacoby blood pressure, systolic, standing 120 mm [Hg] Tawanna Quincy blood pressure, diastolic 70 mm[Hg] Killian Herreraby blood pressure, systolic 110 mm[Hg] Tamie Herreraby oxygen saturation, oximetry 99 % Tawanna Quincy respiratory rate E&M 16 /min Tawanna Jacoby pulse rate 58 /min Tawanna Jacoby weight E&M 135.2 [lb_av] Tawanna Quincy blood pressure, cuff size regular Killian Herreraby height E&M 74 [in_i] Tawanna Herreraby blood pressure, diastolic 84 mm[Hg] Me pressley Loja blood pressure, systolic 134 mm[Hg] Irasema taylor Loja pulse rate 94 /min Kavitha Loja oxygen saturation, oximetry 98 % Kavitha Loja respiratory rate E&M 15 /min Kavitha Loja Body Mass Index (Ratio) 16.05 kg/m2 Denisse gibson Loja weight E&M 125 [lb_av] Kavitha Loja blood pressure, diastolic 70 mm[Hg] Mejia Barnes blood pressure, systolic 100 mm[Hg] Fidencio Barnes pulse rate 50 /min Theresa Hdz [facility] oxygen saturation, oximetry 98 % Theresa Oconnornedenniser respiratory rate E&M 16 /min Theresa Sepulveda renettaenenfelder Body Mass Index (Ratio) 16.30 kg/m2 Mendoza Senajazmynenejuliánelder weight E&M 127 [lb_av] Theresa Oconnornejuliáne lder blood pressure, diastolic 66 mm[Hg] Femi Leonmiriam Ramirez blood pressure, systolic 100 mm[Hg] Priti Marshalynsey Ramirez pulse rate 50 /min Mila Rich nson oxygen saturation, oximetry 96 % Mila Veeenson respiratory rate E&M 16 /min RashmiVaishali Ramirez Body Mass Index (Ratio) 16.28 kg/m2 Rashmi Jenkins Ramirez weight E&M 126.8 [lb_av] Mila Mariusz enson blood pressure, diastolic 80 mm[Hg] Mejia sanders Elvinnejuliánelder blood pressure, systolic 110 mm[Hg] Fidencio Senajazmynenejuliánelder pulse rate 54 /min Theresa Hdz lder oxygen saturation, oximetry 99 % Theresa Senajazmynenejuliánelder respiratory rate E&M 16 /min Theresa Sepulveda renettaenenfelder Body Mass Index (Ratio) 16.69 kg/m2 Donaldson lisa Oconnornejuliándavier weight E&M 130 [lb_av] Theresa Gruenenfe lder blood pressure, diastolic 60 mm[Hg] Femi aparnaVedamiriam Ramirez blood pressure, systolic 110 mm[Hg] Priti Marshalynsey Ramirez pulse rate 48 /min MilaAlice Veee nson oxygen saturation, oximetry 99 % Mila Veeenson respiratory rate E&M 16 /min Blanca menon Ramirez Body Mass Index (Ratio) 16.84 kg/m2 Rashmi Ramirez weight E&M 131.2 [lb_av] Mila black blood pressure, diastolic 75 mm[Hg] Me huan Loja blood pressure, systolic 122 mm[Hg] Irasema taylor Loja pulse rate 50 /min Kavitha Loja oxygen saturation, oximetry 98 % Kavitha Loja respiratory rate E&M 16 /min Kavitha Loja Body Mass Index (Ratio) 16.95 kg/m2 Denisse gibson Loja weight E&M 132 [lb_av] Kavitha Loja height E&M 74 [in_i] Kavitha Loja ALLERGIES Allergy Name Onset Date Reaction Criticality Status ADHESIVE PADS skin irritaiton/rash High Critica lity active RESULTS Date Observation Value Provider Reference Range Interpretation Location coagulation managed by Scar Limon RN international normalized ratio (INR) 1.5 Theresa Barnes Normal prothrombin time (patient) 18.5 s Theresa Barnes anion gap, serum 14.7 LinkLog[facility] - albumin/globulin ratio, serum 3.5 g/dL [facility] 1.1 - 2.5 High globulin, serum 2.6 [facility] 2.3 - 3.8 urea nitrogen/creatinin e ratio, serum 17.1 [facility] - Estimated Glomerular Filtration Rate (calc) 144.9 (?) [facility] 59.0 - chloride, serum 101.3 mmol/L [facility] 98.0 - 107.0 potassium, serum 4.8 mmol/L [facility] 3.5 - 5.1 sodium, serum 143.0 mmol/L [facility] 136.0 - 145.0 creatinine, serum 0.7 mg/dL [facility] 0.7 - 1.2 carbon dioxide, venous blood 27.0 mmol/L [facility] 22.0 - 29.0 albumin, serum 5.2 g/dL [facility] 3.5 - 5.2 calcium, serum 9.7 mg/dL [facility] 8.6 - 10.2 aspartate aminotransferase (SGOT), serum 28.0 1/L [facility] 0.0 - 40.0 alkaline phosphatase, serum 70.0 1/L [facility] 40.0 - 130.0 alanine aminotransferase (SGPT), serum 15.0 1/L [facility] 0.0 - 41.0 protein, total, serum 7.8 g/dL [facility] 6.6 - 8.7 bilirubin, serum, total 1.8 mg/dL [facility] 0.0 - 1.2 High urea nitrogen, blood 12.0 mg/dL [facility] 6[facility] - 20.0 blood glucose, random 80.0 mg/dL [facility] 74.0 - 99.0 red blood cell distribution width, size density 43.8 fL [facility] - immature granulocytes, percentage of total cells, blood 0.2 % [facility] - nucleated red blood cells as percent of blood leukocytes 0.0 % [facility] - red blood cell (erythrocyte) count, per high power field 0.0 10*3/UL [facility] - eosinophils as percent of blood leukocytes 3.8 % [facility] - neutrophils as percent of blood leukocytes 60.5 % [facility] - Absolute Neutrophils 2.7 CELLS/UL Link[facility] 1.5 - 7.8 basophils as percent of blood leukocytes 0.7 % [facility] - Absolute Basophils 0.0 CELLS/UL [facility] 0.0 - 0.2 monocytes as percent of blood leukocytes 8.4 % [facility] Monocytes 0.4 CELLS/UL Link[facility] 0.2 - 1.0 lymphocytes as percent of blood leukocytes 26.4 % [facility] - Absolute Lymphocytes 1.2 CELLS/UL [facility] 0.9 - 3.9 mean platelet volume 11.2 (?) [facility] - platelet count 254.0 THOUSAND/U L [facility] 100.0 - 400.0 mean corpuscular hemoglobin concentration, RBC 31.5 G/DL [facility] 31.0 - 38.0 mean corpuscular hemoglobin, RBC 28.0 pg [facility] 25.0 - 35.0 mean corpuscular volume, RBC 88.8 fL [facility] 75.0 - 100.0 hematocrit, blood 48.6 % [facility] 35.0 - 55.0 hemoglobin, blood 15.3 g/dL [facility] 11.5 - 16.5 erythrocyte count, whole blood 5.5 MILLION/UL [facility] 3.5 - 5.5 Nitrite Urine Negative [facility] Negative urobilinogen, urine 0.2 E.U./dL mg/dl [facility] 0.2 - 1.0 specific gravity, urine 1.025 [facility] 1.001 - 1.035 KETONES, URINE Negative LinkLogic Negative bilirubin, urine Negative [facility] Negative Glucose Urine Negative [facility] Negative clarity, urine, point Turbid [facility] Yellow urine color [place] [facility] yellow to yoel activated partial thromboplastin time 24.7 SECONDS [facility] 23.0 - 33.0 prothrombin time (patient) 11.4 s [facility] 9.0 - 11.5 international normalized ratio (INR) 1.0 [facility] 0.9 - 1.1 HISTORY OF MEDICATION USE Medication Status Instructions Dates Provider Indications Com ments amoxicillin 500 mg capsule active Take 1 capsule by mouth three times a day Wlaly Riley aspirin 81 mg tablet,delayed release (DR/EC) active 1 tablet by mouth once a day Theresa Barnes COUMADIN 5 MG ORAL TABLET completed One tablet daily - Sary Moscoso MD TRAMADOL HCL TABLET completed 50 mg every 8 hours as needed for pain - Theresa Barnes PERCOCET 5-325 MG ORAL TABLET completed as needed for pain - Theresa Barnes SOCIAL HISTORY Date Observation Value Provider Underweight no Sary fregoso MD social history E&M S moking History: Avinash rod currently smokes every day. P marcel has been counseled to quit. Wally Riley smoking/tobacco cess ation, patient education and counseling yes Wally Riley smoking, date started 2002 Wally Riley smoking history, tot al pack/year 13 Wally Riley smoking history, tot al pack/day 0.5 Wally Riley cigarette use yes Wally Riley smoking status Current every day smoker Susan Riley social history reviewed E&M revi ewed - no changes required Wally Riley social history reviewed E&M revi ewed - no changes required Gamaliel Ware social history E&M S moking History: P marcel currently smokes every day. P marcel has been counseled to quit. Gamaliel Ware Underweight yes Gamaliel Ware smoking/tobacco cess ation, patient education and counseling yes Theresa Barnes smoking, date started 2002 Theresa Barnes smoking history, tot al pack/year 13 Theresa Barnes smoking history, tot al pack/day 0.5 Theresa Barnes cigarette use yes Theresa rowe smoking status Current every day smoker Gerardo Barnes Underweight no Sary fregoso MD smoking status Current every day smoker Gerardo Barnes smoking/tobacco cess ation, patient education and counseling yes Sary Moscoso MD smoking, date started 2002 Rigo Moscoso MD smoking history, tot al pack/year 13 Sary Moscoso MD smoking history, tot al pack/day 0.5 Sary Moscoso MD cigarette use yes Sary atkins MD social history reviewed E&M revi ewed - no changes required Sary Moscoso MD Underweight yes Sary fregoso MD smoking status Current every day smoker Susan Limon RN smoking status Current every day smoker Gerardo Sena social history reviewed E&M revi ewed - no changes required Adenike Sena smoking/tobacco cess ation, patient education and counseling yes Theresa Barnes smoking, date started 2002 Theresa Barnes smoking history, tot al pack/year 13 Theresa Barnes smoking history, tot al pack/day 0.5 Theresa Barnes cigarette use yes Theresa rowe Underweight yes Usama Josh erg social history reviewed E&M revi ewed - no changes required Naty Thornton NP number of grandchildren Sary Dozier smoking/tobacco cess ation, patient education and counseling yes Tawanna Dozier smoking, date started 2002 Tawanna Herreraby smoking history, tot al pack/year 13 Tawanna Herreraby smoking history, tot al pack/day 0.5 Tawanna Quincy cigarette use yes Tawanna Jacoby smoking status Current every day smoker Gerardo juany Dozier social history reviewed E&M revi ewed - no changes required Sary Moscoso MD smoking/tobacco cess ation, patient education and counseling yes Kavitha Loja smoking, date started 2002 Milagro Loja smoking history, tot al pack/year 13 Kavitha Loja smoking history, tot al pack/day 0.5 Kavitha Loja cigarette use yes Kavitha Loja smoking status Current every day smoker Kamla Loja social history reviewed E&M revi ewed - no changes required Sary Moscoso MD smoking/tobacco cess ation, patient education and counseling yes Theresa Barnes smoking, date started 2002 Theresadaksha Barnes smoking history, tot al pack/year 13 Theresa Molly smoking history, tot al pack/day 0.5 Theresadaksha Barnes cigarette use yes Theresa Arlene rowe smoking status Current every day smoker Gerardo busby Molly smoking history, tot al pack/year 13 Sary Moscoso MD social history reviewed E&M revi ewed - no changes required Justice Carvajal MD smoking/tobacco cess ation, patient education and counseling yes Mila Ramirez smoking, date started 2002 Nnamdi Ramirez smoking history, tot al pack/year 13 Mila Ramirez smoking history, tot al pack/day 0.5 Mila Ramirez cigarette use yes Mila black smoking status Current every day smoker Kamla Maicol Ramirez smoking history, tot al pack/year 13 Rashmi Ayoub smoking/tobacco cess ation, patient education and counseling yes Sary Moscoso MD smoking, date started 2002 Rigo Moscoso MD smoking history, tot al pack/day 0.5 Sary Moscoso MD smoking status Current every day smoker Denise Moscoso MD cigarette use yes Sary atkins MD social history reviewed E&M revi ewed - no changes required Sary Moscoso MD social history reviewed E&M revi ewed - no changes required Sary Moscoso MD smoking/tobacco cess ation, patient education and counseling yes Mila Ramirez smoking history, tot al pack/day 0.5 Mila Ramirez smoking, date started 2002 Nnamdi Ramirez cigarette use yes Mila black smoking status Current every day smoker M Maicol Ramirez social history E&M Smoking Histo ry: P atient currently smokes every day. P atient has been counseled to quit. 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 1 tablet by mouth once a day Sary Moscoso MD [id number],C, H is updated medication list for this problem includes: Aspirin 81 Mg Tablet,delayed Release (dr/ec) (Aspirin) ..... 1 tablet by mouth once a day Sary Moscoso MD [id number],C, H is updated medication list for this problem includes: Aspirin 81 Mg Tablet,delayed Release (dr/ec) (Aspirin) ..... 1 tablet by mouth once a day Sary Moscoso MD [id number],W, Wally Riley [id number],W, Wally Riley Electrophysiology Sary atkins MD Electrophysiology: H is updated medication list for this problem includes: Aspirin 81 Mg Tablet,delayed Release (dr/ec) (Aspirin) ..... 1 tablet by mouth once a day Sary Moscoso MD Electrophysiology: H is updated medication list for this problem includes: Aspirin 81 Mg Tablet,delayed Release (dr/ec) (Aspirin) ..... 1 tablet by mouth once a day Sary Moscoso MD Electrophysiology: H is updated medication list for this problem includes: Aspirin 81 Mg Tablet,delayed Release (dr/ec) (Aspirin) ..... 1 tablet by mouth once a day Sary Moscoso MD Electrophysiology Wally Riley Electrophysiology Wally Riley Electrophysiology Fo llow up :ILR implantation on 11/07/15. L ast ILR remote check on 03/14/17 revealed 1 sudden rate drop episode from SR to SB, HR in 50s. I LR transmissions were deactivated. Would like to re-activate transmissions at this time. Followup with me in 1 year. His updated medication list for this problem includes: Aspirin Adult Low Dose 81 Mg Oral Tablet Delayed Release (Aspirin) ..... One tab by mouth daily Gamaliel Ware Cardiology Sary tenorio MD Cardiology:STRONGLY ENCOURAGED TO STOP SMOKING; SMOKING CESSATION TECHNIQUES DISCUSSED. Sary Moscoso MD Cardiology: O rders: F VC - 92956 (25758) F RC - 91659 (66814) D LCO - 79053 (86643) 9 3256 LTD. Complex (CPT-26691) C omplete Echo (CPT-92936) Sary Moscoso MD Electrophysiology Fo llow up:Will have echo and stress test done today. Adenike Keeneha EP faxed 04/19/16 Usama vaz EP faxed 04/19/16 Usama vaz EP faxed 04/19/16:no c ardiac diagnosis at present time to support disability Orders: S NOMED-CT: [id number] Current Medications Documented ([id number]) E KG (CPT-33658) Usama Bird EP faxed 04/19/16:Orde rs: S NOMED-CT: [id number] Current Medications Documented ([id number]) E KG (CPT-39549) Usama Bird EP faxed 04/19/16 Sary tenorio MD EP:S/P ILR implantation. Sary Moscoso MD EP:S/P ILR implantation. Sary Moscoso MD EP:Benefits of smoking cessation were reviewed. Sary Moscoso MD EP:S/P EP Study (no ablation was done). Orders: C omplete Echo (CPT-86159) Sary Moscoso MD EP:S/P EP Study (no ablation was done). Orders: E KG (CPT-97852) C omplete Echo (CPT-49247) Sary Moscoso MD Cardiology Device Im plant Follow up:Benefits of smoking cessation were reviewed. Sary Moscoso MD Cardiology Device Im plant Follow up:Scheduled for EP Study on 11/24. Sary Moscoso MD Cardiology Device Implant Follow up:Resolved. Sary Moscoso MD EP Hospital Follow u p faxed 11/03/15:STRONGLY ENCOURAGED TO STOP SMOKING; SMOKING CESSATION TECHNIQUES DISCUSSED. Usama Bird EP Hospital Follow up faxed 11/02 Usama Bird EP Hospital Follow up faxed 11/02 Usama Marge EP Hospital Follow up faxed 11/02 Usama Bird EP Hospital Follow u p faxed 11/03/15:Has severe bradycardia and sinus pauses. No indication for pacemaker at this time. Will implant loop recorder. Usama Bird Cardiology:start event recoreder today for one week Sary Moscoso MD Cardiology:start event recoreder today for one week Sary Moscoso MD Date Name Holter Monitor 48 hr Complete Echo DLCO - 91299 FRC - 77615 FVC - 03342 STR - Routine Complete Echo Complete Echo DLCO - 27716 FRC - 84598 FVC - 54871 PARTIAL THROMBOPLAST IN TIME, ACTIVATED PROTHROMBIN TIME WIT H INR URINALYSIS, COMPLETE COMPREHENSIVE METABO LIC PANEL W/EGFR CBC (INCLUDES DIFF/P LT) Loop Rec Implant - G C ABLATION w/ Anesthes ia STR - Routine Mobile Cardiac Tele DLCO - 53393 FRC - 58741 FVC - 86237 HISTORY OF PROCEDURES Procedure Date Procedure Name Provider Procedure Notes S tatus EKG Sary tenorio MD completed Schedule Followup Sary atkins MD in 1 yr completed EKG Sary tenorio MD completed Loop Recorder Interrogation, Remote Sary Moscoso MD INTERROGATION EVALUATION REMOTE </30 D ILR SYS completed ICM Interrogation, Remote (Tech) Sary Moscoso MD INTERROGATION EVAL REMOTE </30 D TECH REVIEW completed Loop Recorder Interrogation, Remote Sary Moscoso MD INTERROGATION EVALUATION REMOTE </30 D ILR SYS completed ICM Interrogation, Remote (Tech) Sary Moscoso MD INTERROGATION EVAL REMOTE </30 D TECH REVIEW completed EKG Sary tenorio MD completed SNOMED-CT: 800114112811451 Current Medications Documented Sary Moscoso MD completed FVC / MVV with bronchodilator - 25497 Sary Moscoso MD completed FRC - 46830 Sary tenorio MD completed SpO2 - 62012 Sary tenorio MD completed DLCO - 85346 Sary tenorio MD completed Stress EKG Sary tenorio MD completed Stress EKG Sary tenorio MD completed EKG Sary tenorio MD completed SNOMED-CT: 095977921291214 Current Medications Documented Sary Moscoso MD completed Loop Recorder Interrogation, Remote Sary Moscoso MD INTERROGATION EVALUATION REMOTE </30 D ILR SYS completed ICM Interrogation, Remote (Tech) Sary Moscoso MD INTERROGATION EVAL REMOTE </30 D TECH REVIEW completed Loop Recorder Interrogation, Remote Sary Moscoso MD INTERROGATION EVALUATION REMOTE </30 D ILR SYS completed ICM Interrogation, Remote (Tech) Sary Moscoso MD INTERROGATION EVAL REMOTE </30 D TECH REVIEW completed Loop Recorder Interrogation, Remote Sary Moscoso MD INTERROGATION EVALUATION REMOTE </30 D ILR SYS completed ICM Interrogation, Remote (Tech) Sary Moscoso MD INTERROGATION EVAL REMOTE </30 D TECH REVIEW completed SNOMED-CT: 353274049 Smoking Cessation Counseling Sary Moscoso MD completed EKG Sary tenorio MD completed SNOMED-CT: [id number] Current Medications Documented Sary Moscoso MD completed Loop Recorder Interrogation, Remote Sary Moscoso MD INTERROGATION EVALUATION REMOTE </30 D ILR SYS completed ICM Interrogation, Remote (Tech) Sary Moscoso MD INTERROGATION EVAL REMOTE </30 D TECH REVIEW completed Loop Recorder Interrogation, Remote Sary Moscoso MD INTERROGATION EVALUATION REMOTE </30 D ILR SYS completed ICM Interrogation, Remote (Tech) Sary Moscoso MD INTERROGATION EVAL REMOTE </30 D TECH REVIEW completed Loop Recorder Interrogation, Remote Sary Moscoso MD INTERROGATION EVALUATION REMOTE </30 D ILR SYS completed ICM Interrogation, Remote (Tech) Sary Moscoso MD INTERROGATION EVAL REMOTE </30 D TECH REVIEW completed SNOMED-CT: 148032089 Smoking Cessation Counseling Sary Moscoso MD completed EKG Sary tenorio MD completed SNOMED-CT: [id number] Current Medications Documented Sary Moscoso MD completed Loop Recorder Interrogation, Remote Sary Moscoso MD INTERROGATION EVALUATION REMOTE </30 D ILR SYS completed ICM Interrogation, Remote (Tech) Sary Moscoso MD INTERROGATION EVAL REMOTE </30 D TECH REVIEW completed Protime Sary tenorio MD completed SNOMED-CT: 006747420 Smoking Cessation Counseling Sary Moscoso MD completed EKG Sary tenorio MD completed SNOMED-CT: 684299696533618 Current Medications Documented Sary Moscoso MD completed SNOMED-CT: 339135905 Smoking Cessation Counseling Justice Carvajal MD completed SNOMED-CT: [id number] Current Medications Documented Justice Carvajal MD completed SNOMED-CT: 496863383 Smoking Cessation Counseling Sary Moscoso MD completed EKG Sary tenorio MD completed SNOMED-CT: [id number] Current Medications Documented Sary Moscoso MD completed SNOMED-CT: 405295045 Smoking Cessation Counseling Sary Moscoso MD completed EKG Sary tenorio MD completed SNOMED-CT: [id number] Current Medications Documented Sary Moscoso MD completed SNOMED-CT: 178669436 Smoking Cessation Counseling Sary Moscoso MD completed Event Monitor Sary tenorio MD completed FVC - 61506 Sary tenorio MD completed FRC - 52531 Sary tenorio MD completed DLCO - 61635 Sary tenorio MD completed Schedule Followup Sary atkins MD fu in 1 week with SK completed EKG Sary tenorio MD completed SNOMED-CT: [id number] Current Medications Documented Sary Moscoso MD completed
--- OUTSIDE RECORDS SUMMARY | 2024-05-29 21:10 | XMS_ITS | Clinical Summary ---
Author Organization [facility] [place] [facility] [address] Address [address] [place] [address] Care Team Providers Care Literacy Education Professor Name Role Phone Referring, Unknown MD Primary [...] leave this to the discretion of his receiver stocker, Dr. Austin, though I can order at [facility] if desired. I do not have the [...] been conducted over the past 5 years. Medical History Medical History Date Comments Syncope Family History Medical History Relation Name Comments No Known Problems Father No Known Problems Mother Relation Name Status Comments Father Mother Social History Tobacco Use Types Packs/Day Years Used Date Smoking Tobacco: Every Day Smokeless Tobacco: Current Personal Safety Answer Date Recorded Getting School Help Needed Not on file 04/16 Sex and Gender Information Value Date Recorded Sex Assigned at Not on file Legal Sex Male 10:12 AM CDT Gender Identity Not on file Sexual Orientation Not on file Obstetrics History Last Filed Vital Signs Vital Sign Reading Time Taken Comments Blood Pressure 160/96 01/14/2022 3:27 PM MANPOWER DEVELOPMENT SPECIALIST Pulse 54 01/14/2022 3:27 PM MANPOWER DEVELOPMENT SPECIALIST Temperature 36.5 C (97.7 F) 01/14/2022 3:27 PM MANPOWER DEVELOPMENT SPECIALIST Respiratory Rate 18 01/14/2022 3:27 PM MANPOWER DEVELOPMENT SPECIALIST Oxygen Saturation 98% 01/14/2022 3:27 PM MANPOWER DEVELOPMENT SPECIALIST Inhaled Oxygen Concentration - - Weight 83.3 kg (183 lb 10.3 oz) 01/14/2022 3:27 PM MANPOWER DEVELOPMENT SPECIALIST Height 188 cm (6' 2 ) 01/14/2022 3:27 PM MANPOWER DEVELOPMENT SPECIALIST Body Mass Index 23.58 01/14/2022 3:27 PM MANPOWER DEVELOPMENT SPECIALIST Plan of Treatment Health Maintenance Due Date Last Done Comments Depression Screening 1988 Hepatitis C Screening 1988 DTaP/Tdap/Td Vaccine (1 - Tdap) 11/18/1999 Varicella Vaccines (1 of 2 - 13+ 2-dose series) 2001 Hepatitis B Screening 2006 Regular Well Visit/Exam 18-64 2006 Pneumococcal vaccine <65 (1 of 2 - PCV) 11/18/2007 Influenza Vaccine (#1) 2023 11/11/2015 HPV Vaccines Aged Out No longer eligi ble based on patient's age to complete this topic Insurance [facility] Care Teams Literacy Education Professor Relationship Specialty Start Date End Date Referring, Unknown, PCP - General Family Medicine 01/14/22
[2024-05-29 21:13] VITALS: BP 134/96; PULSE 52; RESP 18; TEMP 36.4; O2SAT 100
--- OUTSIDE RECORDS SUMMARY | 2024-05-29 22:18 | XMS_ITS | Referral Summary ---
Author Organization [facility] [place] [address] Address [address] [place] [address] Care Team Providers Care Sole Painter Name Role Phone Referring, Unknown MD Primary [...] leave this to the discretion of his shower doors and panels fabricator, Dr. Austin, though I can order at [...] Comments Blood Pressure 160/96 01/14/2022 3:27 PM ADDICTION PROFESSIONAL Pulse 54 01/14/2022 3:27 PM ADDICTION PROFESSIONAL Temperature 36.5 C (97.7 F) 01/14/2022 3:27 PM ADDICTION PROFESSIONAL Respiratory Rate 18 01/14/2022 3:27 PM ADDICTION PROFESSIONAL Oxygen Saturation 98% 01/14/2022 3:27 PM ADDICTION PROFESSIONAL Inhaled Oxygen Concentration - - Weight 83.3 kg (183 lb 10.3 oz) 01/14/2022 3:27 PM ADDICTION PROFESSIONAL Height 188 cm (6' 2 ) 01/14/2022 3:27 PM ADDICTION PROFESSIONAL Body Mass Index 23.58 01/14/2022 3:27 PM ADDICTION PROFESSIONAL Plan of Treatment Not on file Insurance [facility] Member Subscriber Plan / Payer (Ef fective 2019-Present) Name:Kortney Huttonin Relation to Subscriber:Self Name:Kortney Huttonin Payer ID:[id number] (NAIC) Type:MEDICAID RISK OTHER Address: [place] [id number] [facility] Care Teams Sole Painter Relationship Specialty Start Date End Date Referring, Unknown, PCP - General Family Medicine 01/14/22
--- OUTSIDE RECORDS SUMMARY | 2024-05-29 22:18 | XMS_ITS | CONTINUITY OF CARE DOCUMENT ---
Author Name raudel starks Address Unknown Organization [facility] Address [address] [place] [address] Phone [phone] Care Team Providers Care Toggler Name Role Phone Blanka VANEGAS, Sary Unavailable BRADY VANEGAS, ANU Unavailable JACK VANEGAS, SERA Unavailable [phone] PROBLEMS Condition Status Date Provider Notes S/P [...] In-person encounter Office Visit Sary Moscoso MD [facility] Atrioventricular (AV) block, 2nd degree - In-person encounter Office Visit Sary Moscoso MD [facility] - In-person encounter Office Visit Sary Moscoso MD [facility] - In-person encounter Office Visit Sary Moscoso MD [facility] - In-person encounter Office Visit Sary Moscoso MD [facility] Office - In-person encounter Office Visit Sary Moscoso MD [facility] - In-person encounter Office Visit Sary Moscoso MD [facility] - In-person encounter Office Visit Justice Carvajal MD [facility] - In-person encounter Office Visit Sary Moscoso MD [facility] DizzinessBradycardia sinusSinus pause - In-person encounter Office Visit Sary Moscoso MD [facility] Chest pain-type to be determined - In-person encounter Office Visit Sary oMscoso MD [facility] Other symptoms involving cardiovascular systemShortness of [...] lder Body Mass Index (Ratio) 16.56 kg/m2 aKi Moscoso MD blood pressure, diastolic 70 mm[Hg] [...] pressure, systolic, standing 120 mm [Hg] Tawanna [place] blood pressure, diastolic 70 mm[Hg] Killian Herreraby blood pressure, systolic 110 mm[Hg] Tamie Herreraby oxygen saturation, oximetry 99 % Tawanna [place] respiratory rate E&M 16 /min Tawanna Jacoby pulse rate 58 /min Tawanna Jacoby weight E&M 135.2 [lb_av] Tawanna [place] blood pressure, cuff size regular Killian Herreraby [...] Barnes pulse rate 50 /min Theresa [facility] oxygen saturation, oximetry 98 % [...] 1.2 High urea nitrogen, blood 12.0 mg/dL [facility] 6[facility] - 20.0 blood glucose, random 80.0 mg/dL [facility] 74.0 - 99.0 red blood cell distribution width, size density 43.8 fL [facility] - immature granulocytes, percentage of total cells, blood 0.2 % [facility] - nucleated red blood cells as percent of blood leukocytes 0.0 % [facility] - red blood cell (erythrocyte) count, per high power field 0.0 10*3/UL [facility] - eosinophils as percent of blood leukocytes 3.8 % [facility] - neutrophils as percent of blood leukocytes 60.5 % [facility] - Absolute Neutrophils 2.7 CELLS/UL [facility] 1.5 - 7.8 basophils as percent of blood leukocytes 0.7 % [facility] - Absolute Basophils 0.0 CELLS/UL [facility] 0.0 - 0.2 monocytes as percent of blood leukocytes 8.4 % [facility] Monocytes 0.4 CELLS/UL [facility] 0.2 - 1.0 lymphocytes as percent of blood leukocytes 26.4 % [facility] - Absolute Lymphocytes 1.2 CELLS/UL [facility] 0.9 [...] urine, point Turbid [facility] Yellow urine color [place] [facility] yellow to yoel activated partial thromboplastin time 24.7 SECONDS [facility] 23.0 - 33.0 prothrombin time (patient) 11.4 s [facility] 9.0 - 11.5 international normalized ratio (INR) 1.0 [facility] 0.9 - 1.1 HISTORY OF MEDICATION USE Medication Status Instructions Dates Provider Indications Com ments amoxicillin 500 mg capsule active Take 1 capsule by mouth three times a day Wally Riley aspirin 81 mg tablet,delayed release (DR/EC) [...] smoking history, tot al pack/day 0.5 Tawanna [place] cigarette use yes Tawanna Jacoby smoking status [...] limb movement index absent (0) Scar Limon NURSE EXTERN HISTORY Family Member Condition Mother Negative FH of Coron liza Artery Disease INSURANCE PROVIDERS Payer name Policy type / Coverage type Sterrett red green party ID [place] MEDICA[employer] Medicaid [id number] ADVANCE DIRECTIVES Name Date DISCUSSED - NO DECISION MADE TREATMENT PLAN Date Name Performer [id number],C, Sary torrez MD [id number],C, H is updated medication list for this problem includes: Aspirin 81 Mg Tablet,delayed Release (dr/ec) (Aspirin) ..... 1 tablet by mouth once a day Sary Moscoso MD [id number],C, H is updated medication list for this problem includes: Aspirin 81 Mg Tablet,delayed Release (dr/ec) (Aspirin) ..... 1 tablet by mouth once a day Sary Moscoso MD [id number],C, H is updated medication list for this problem includes: Aspirin 81 Mg Tablet,delayed Release (dr/ec) (Aspirin) ..... 1 tablet by mouth once a day Sary Moscoso MD [id number],W, Wally Riley [id number],W, Wally Riley Electrophysiology Sary atkins MD Electrophysiology: [...] MD Cardiology: O rders: F VC - 36154 (07610) F RC - 22852 (24318) D LCO - 54970 (75386) 9 0524 LTD. Complex (CPT-91288) C omplete Echo (CPT-82935) Sary Moscoso MD Electrophysiology Fo llow up:Will have echo and stress test done today. Adenike Keeneha EP faxed 04/19/16 Usama vaz EP faxed 04/19/16 Usama vaz EP faxed 04/19/16:no c ardiac diagnosis at present time to support disability Orders: S NOMED-CT: [id number] Current Medications Documented ([id number]) E KG (CPT-78619) Usama Bird EP faxed 04/19/16:Orde rs: S NOMED-CT: [id number] Current Medications Documented ([id number]) E KG (CPT-59238) Usama Bird EP faxed 04/19/16 Sary tenorio MD EP:S/P ILR implantation. Sary Moscoso MD EP:S/P ILR implantation. Sary Moscoso MD EP:Benefits of smoking cessation were reviewed. Sary Moscoso MD EP:S/P EP Study (no ablation was done). Orders: C omplete Echo (CPT-15066) Sary Moscoso MD EP:S/P EP Study (no ablation was done). Orders: E KG (CPT-40863) C omplete Echo (CPT-27761) Sary Moscoso MD Cardiology Device Im plant [...] Monitor 48 hr Complete Echo DLCO - 57520 FRC - 02830 FVC - 31481 STR - Routine Complete Echo Complete Echo DLCO - 98861 FRC - 55451 FVC - 28852 PARTIAL THROMBOPLAST IN TIME, ACTIVATED PROTHROMBIN TIME WIT H INR URINALYSIS, COMPLETE COMPREHENSIVE METABO LIC PANEL W/EGFR CBC (INCLUDES DIFF/P LT) Loop Rec Implant - G C ABLATION w/ Anesthes ia STR - Routine Mobile Cardiac Tele DLCO - 38047 FRC - 32075 FVC - 43814 HISTORY OF PROCEDURES Procedure Date Procedure Name [...] completed EKG Sary tenorio MD completed SNOMED-CT: [id number] Current Medications Documented aSry Moscoso MD completed FVC / MVV with bronchodilator - 94736 Sary Moscoso MD completed FRC - 26716 Sary tenorio MD completed SpO2 - 99626 Sary tenorio MD completed DLCO - 41196 Sary tenorio MD completed Stress EKG Sary tenorio MD completed Stress EKG Sary tenorio MD completed EKG Sary tenorio MD completed SNOMED-CT: 506446509661214 Current Medications Documented Sary Moscoso MD completed [...] REMOTE </30 D TECH REVIEW completed SNOMED-CT: 837043873 Smoking Cessation Counseling Sary Moscoso MD completed EKG Sary tenorio MD completed SNOMED-CT: 019581686233179 Current Medications Documented Sary Moscoso MD completed [...] REMOTE </30 D TECH REVIEW completed SNOMED-CT: 534038082 Smoking Cessation Counseling Sary Moscoso MD completed EKG Sary tenorio MD completed SNOMED-CT: 089615042070920 Current Medications Documented Sary Moscoso MD completed Loop Recorder Interrogation, Remote Sary Moscoso MD INTERROGATION EVALUATION REMOTE </30 D ILR SYS completed ICM Interrogation, Remote (Tech) Sary Moscoso MD INTERROGATION EVAL REMOTE </30 D TECH REVIEW completed Protime Sary tenorio MD completed SNOMED-CT: 922786103 Smoking Cessation Counseling Sary Moscoso MD completed EKG Sary tenorio MD completed SNOMED-CT: 468050278161950 Current Medications Documented Sary Moscoso MD completed SNOMED-CT: 342237166 Smoking Cessation Counseling Justice Carvajal MD completed SNOMED-CT: 813409535637837 Current Medications Documented Justice Carvajal MD completed SNOMED-CT: 411119855 Smoking Cessation Counseling Sary Moscoso MD completed EKG Sary tenorio MD completed SNOMED-CT: 815981473960723 Current Medications Documented Sary Moscoso MD completed SNOMED-CT: 641051452 Smoking Cessation Counseling Sary Moscoso MD completed EKG Sary tenorio MD completed SNOMED-CT: 553975204739516 Current Medications Documented Sary Moscoso MD completed SNOMED-CT: 269098084 Smoking Cessation Counseling Sary Moscoso MD completed Event Monitor Sary tenorio MD completed FVC - 30866 Sary tenorio MD completed FRC - 12202 Sary tenorio MD completed DLCO - 03285 Sary tneorio MD completed Schedule Followup Sary atkins MD fu in 1 week with SK completed EKG Sary tenorio MD completed SNOMED-CT: 969444096125439 Current Medications Documented Sary Moscoso MD completed
--- OUTSIDE RECORDS SUMMARY | 2024-05-29 22:18 | XMS_ITS | Clinical Summary ---
Author Organization [facility] [address] Address [address] [place] [address] Care Team Providers Care Fertilizer Processing Supervisor Name Role Phone Referring, Unknown MD Primary [...] leave this to the discretion of his down filler, Dr. Austin, though I can order at [facility] if desired. I do not have [...] Comments Blood Pressure 160/96 01/14/2022 3:27 PM SUPERVISOR PRE WAVE Pulse 54 01/14/2022 3:27 PM SUPERVISOR PRE WAVE Temperature 36.5 C (97.7 F) 01/14/2022 3:27 PM SUPERVISOR PRE WAVE Respiratory Rate 18 01/14/2022 3:27 PM SUPERVISOR PRE WAVE Oxygen Saturation 98% 01/14/2022 3:27 PM SUPERVISOR PRE WAVE Inhaled Oxygen Concentration - - Weight 83.3 kg (183 lb 10.3 oz) 01/14/2022 3:27 PM SUPERVISOR PRE WAVE Height 188 cm (6' 2 ) 01/14/2022 3:27 PM SUPERVISOR PRE WAVE Body Mass Index 23.58 01/14/2022 3:27 PM SUPERVISOR PRE WAVE Plan of Treatment Health Maintenance Due Date [...] patient's age to complete this topic Insurance [facility] Care Teams Fertilizer Processing Supervisor Relationship Specialty Start Date End Date Referring, Unknown, PCP - General Family Medicine 01/14/22
--- OUTSIDE RECORDS SUMMARY | 2024-05-29 22:18 | XMS_ITS | Clinical Summary ---
Author Organization [facility] Address [address] [place] [address] Care Team Providers Care Respite Coordinator Name Role Phone Unavailable Primary Care Provider [...]
--- NOTE | 2024-05-29 22:23 | ED_ITS ---
HPI - Extremity Injury (Lower) General Chief Complaint: Extremity Injury, Lower Stated Complaint: Injury to left ankle-twisted on stairs Time Seen by Provider: 05/29/24 22:13 Source: patient Mode of arrival: ambulatory Limitations: no limitations History of Present Illness HPI Narrative: This is a 33-year-old male who presents to the ED for chief complaint of left foot injury that occurred yesterday and worsened today. Patient states that he initially twisted his foot on a rock yesterday. States that today he avoid stepping on his cat on the stairs and accidentally stretched his foot too far. Reports pain across the top of the foot. Denies ankle pain or further injury Related Data Allergies Allergy/AdvReac Type Severity Reaction Status Date / Time adhesive tape Allergy Intermediate Rash Verified 05/29/24 21:16 No Known Drug Allergies Allergy Other Verified 05/29/24 21:09 Review of Systems Review of Systems: All systems as dictated in HPI PMFSH Past Medical History Medical History (Updated 05/30/24 @ 00:00 by Mitchell Damercedes) Nausea & vomiting Hand fracture History of cardiac monitoring Bradycardia Surgical History Surgical History History of cardiac catheterization Social History Social History Smoking packs per day: 0.5 Smoking cigarettes per day: 10.0 Years smoked: 22 Smoking pack-years: 11.00 Smoking status: Former smoker Tobacco type: cigarettes Second hand tobacco smoke exposure: Yes Alcohol intake: never Substance use type: marijuana Other substance usage details: daily Living arrangements: with family Gender identity (if verbalized by the patient): Male Spiritual care concerns: No Exam Narrative: GENERAL: Well-appearing, well-nourished, and in no acute distress. MSK: LLE: Mild tenderness across the dorsal midfoot. No bruising or crepitus. No tenderness to the ankle. RLE: Benign SKIN: Warm, dry, no rash. NEURO: Alert and oriented x4. No focal deficits. PSYCH: Normal mood and affect. Course Vital Signs Vital signs: Vital Signs Temperature 97.6 F 05/29/24 21:13 Pulse Rate 52 L 05/29/24 21:13 Respiratory Rate 18 05/29/24 21:13 Blood Pressure 134/96 H 05/29/24 21:13 Pulse Oximetry 100 05/29/24 21:13 Oxygen Delivery Room Air 05/29/24 21:13 Temperature 97.6 F 05/29/24 21:13 Pulse Rate 52 L 05/29/24 21:13 Respiratory Rate 18 05/29/24 21:13 Blood Pressure 134/96 H 05/29/24 21:13 Pulse Oximetry 100 05/29/24 21:13 Oxygen Delivery Room Air 05/29/24 21:13 MDM - Extremity Injury (Lower) MDM Narrative Medical decision making narrative: This is a 33-year-old male who presents to the ED for chief complaint of left foot injury that occurred yesterday. Vitals are normal. Exam remarkable for the above. X-rays are negative for acute osseous findings. Presentation consistent with left foot sprain. He will be given Tejas wrap and crutches. Patient will be discharged in stable condition. Supportive measures discussed and return precautions given. Patient is understanding and agreeable with plan for discharge with PCP follow-up. Discharge Plan Discharge Clinical Impression: Sprain of left foot Patient Disposition: Home Condition: Stable Instructions: Antibiotic Form Additional Instructions: Exam and imaging today are reassuring. No fracture. Please use Tejas wrap and crutches over the next week. Follow-up with podiatry if your symptoms are not resolving over the next several weeks. If you have any new or worsening symptoms please return to the ER for further evaluation. Patient Language: Ghanaian Prescriptions: No Action ondansetron 4 mg tablet,disintegrating 4 mg PO Q6-8H PRN (Reason: nausea and vomiting) Qty: 14 0RF Follow-up/Referrals: Nancy Vincent DPM [Physician] - UNKNOWN,DOCTOR [Primary Care Provider] - Time of Disposition: 22:27
== END 2024-05-29 22:53 | disposition home or self-care (01) ==
PROVIDERS: Emergency Provider Physician Assistant
DX: S93.602A Unspecified sprain of left foot, initial encounter (principal); X50.0XXA Overexertion from strenuous movement or load, initial encounter
CPT/HCPCS: 73630; 99283

== ENCOUNTER 2024-10-16 17:28 | Emergency (ER) | payer OTHER, SELFPAY ==
--- NOTE | ~2024-10-16 | XR_ITS ---
XR foot RT min 3V, XR ankle RT min 3V 10/16/2024 17:48 (accession [id number]), 10/16/2024 17:49 (accession [id number]) Indication: Twisting injury Procedure: 4 views right foot and 4 views right ankle Comparison: Comparison to multiple prior studies sequentially, with oldest reviewed study dated 08/02/2021. Findings: There is valgus angulation at the metatarsal phalangeal joints. There is extension at the metatarsal phalangeal and flexion at the proximal interphalangeal joints which appears unchanged from prior studies. Lisfranc joint intact. No acute fracture or traumatic malalignment. There is subtle lytic defect in the tibial diaphysis which appears unchanged from prior examination, likely benign. Impression: 1: No acute bone or joint abnormality. Reviewed, dictated and finalized at location O. Impression: 1: No acute bone or joint abnormality. Impression: 1: No acute bone or joint abnormality.
[2024-10-16 17:30] VITALS: BP 146/104; PULSE 61; RESP 16; TEMP 36.8; O2SAT 100
--- NOTE | 2024-10-16 17:30 | ED.GENADULT ---
HPI - General Adult General Chief complaint: Extremity Injury, Lower Stated complaint: R. foot pain Time Seen by Provider: 10/16/24 17:30 Source: patient Mode of arrival: ambulatory Limitations: no limitations Related Data Home Medications ?Medication ?Instructions ?Recorded ?Confirmed ?Last Taken ?Type No Home Medications 10/16/24 10/16/24 Unknown History Allergies Allergy/AdvReac Type Severity Reaction Status Date / Time adhesive tape Allergy Intermediate Rash Verified 10/16/24 17:29 [facility] Past Medical History Medical History (Updated 10/16/24 @ 18:01 by Stephanie Amin MD) Nausea & vomiting Hand fracture History of cardiac monitoring Bradycardia Surgical History Surgical History History of cardiac catheterization Social History Social History Smoking packs per day: 0.5 Smoking cigarettes per day: 10.0 Years smoked: 22 Smoking pack-years: 11.00 Smoking status: Former smoker Tobacco type: cigarettes Second hand tobacco smoke exposure: Yes Alcohol intake: never Substance use type: marijuana Other substance usage details: daily Living arrangements: with family Gender identity (if verbalized by the patient): Male Spiritual care concerns: No Course Vital Signs Vital signs: Vital Signs Temperature 36.8 C 10/16/24 17:30 Pulse Rate 61 10/16/24 17:30 Respiratory Rate 16 10/16/24 17:30 Blood Pressure 146/104 H 10/16/24 17:30 Pulse Oximetry 100 10/16/24 17:30 Oxygen Delivery Room Air 10/16/24 17:30 Temperature 36.8 C 10/16/24 17:30 Pulse Rate 61 10/16/24 17:30 Respiratory Rate 16 10/16/24 17:30 Blood Pressure 146/104 H 10/16/24 17:30 Pulse Oximetry 100 10/16/24 17:30 Oxygen Delivery Room Air 10/16/24 17:30 Medical Decision Making Vital Signs Vital Signs: Vital Signs Temperature 36.8 C 10/16/24 17:30 Pulse Rate 61 10/16/24 17:30 Respiratory Rate 16 10/16/24 17:30 Blood Pressure 146/104 H 10/16/24 17:30 Pulse Oximetry 100 10/16/24 17:30 Oxygen Delivery Room Air 10/16/24 17:30 Temperature 36.8 C 10/16/24 17:30 Pulse Rate 61 10/16/24 17:30 Respiratory Rate 16 10/16/24 17:30 Blood Pressure 146/104 H 10/16/24 17:30 Pulse Oximetry 100 10/16/24 17:30 Oxygen Delivery Room Air 10/16/24 17:30 Imaging Data Radiologist's impression: Impressions Ankle X-Ray 10/16/24 17:51 Impression: 1: No acute bone or joint abnormality. Foot X-Ray 10/16/24 17:51 Impression: 1: No acute bone or joint abnormality. Critical Care Time Critical Care Time Critical Care Time: No Discharge Plan Discharge Clinical Impression: Ankle sprain, Foot sprain Patient Disposition: Home Condition: Stable Instructions: Ankle Sprain (DC), Foot Sprain (ED) Additional Instructions: RETURN IF SYMPTOMS ARE WORSENING , CALL YOUR FAMILY PHYSICIAN FOR APPOINTMENT, TAKE TYLENOL, IBUPROFEN NEEDED FOR ACHES AND PAIN, CONTINUE HOME MEDICATIONS. KEEP FOOT ELEVATED DO NOT PUT WEIGHT ON THE RIGHT FOOT CRUTCHES Patient Language: Swedish Prescriptions: No Action No Home Medications Follow-up/Referrals: María Paz, COORDINATE MEASURING MACHINE TECHNICIANJenC [Primary Care Provider, Gastroenterology]
--- OUTSIDE RECORDS SUMMARY | 2024-10-16 17:30 | XMS_ITS | Clinical Summary ---
Author Organization [facility] Address [address] [place] [id number] Care Team Providers Care Indian Nanny Name Role Phone Unavailable Primary Care Provider [...] of 3 - 19+ 3-dose series) 11/18/2007 HPV Vaccines (1 - 3-dose SCD M series) 11/18/2015 COVID-19 Vaccine ( - 2023-2 5 season) 2023 Meningococcal B Vaccine Aged Out No l [...]
== END 2024-10-16 18:30 | disposition home or self-care (01) ==
LOC: CHSED 18:05
PROVIDERS: Emergency Provider Emergency Medicine; PCP Nurse Practitioner Family
DX: S93.401A Sprain of unspecified ligament of right ankle, initial encounter (principal); Z87.891 Personal history of nicotine dependence; X58.XXXA Exposure to other specified factors, initial encounter
CPT/HCPCS: 73610; 73630; 99283